=== PATIENT | male | born 1975 | race Caucasian/White ===

== ENCOUNTER 2017-03-01 18:52 | Inpatient (IN) | payer OTHER ==
[~2017-03-01] VITALS: Ht 182.9 cm; Wt 74.1 kg
[~2017-03-01 18:52] MED LIST: AMIT10TA6 PO; CERTKIT SC; MULT-506 PO
[2017-03-01] MEDS ORDERED: MoRPHine SULFATE 4 MG/ML 1 ML CARP\\VIAL IV STA (19:09)
[2017-03-01] MEDS ORDERED: SODIUM CHLORIDE 0.9% 1000ML 1,000 ML IV STA (19:09)
[2017-03-01] MEDS ORDERED: ONDANSETRON INJ 2 MG/ML 2 ML VIAL IV STA (19:09)
[2017-03-01] MEDS ORDERED: USTE90IN INJ (19:21)
[2017-03-01 19:58] LABS: BASO % 0.2 %; BASO ABS # 0.03 K/uL (0-0.2); COMPLETE YES; EOS % 1.1 %; HEMATOCRIT 43.4 % (42-52); IG% 0.2 %; LYMPH ABS # 1.39 K/uL (1.2-3.4); MEAN CELL VOLUME 84.8 fL (80-100); MEAN CORPUSCULAR HEMOGLOBIN 28.1 pg (25-34); MEAN CORPUSCULAR HGB CONC 33.2 g/dl (32-36); MEAN PLATELET VOLUME 8.8 fL (7.4-10.4); MONO % 6.3 %; NEUT % 81.2 %; PLATELET COUNT 413 K/uL (130-400); RED BLOOD COUNT 5.12 M/uL (4.7-6.1); WHITE BLOOD COUNT 12.63 K/uL (4.8-10.8)
[2017-03-01 20:09] LABS: BUN/CREATININE RATIO 14.2 (10-20); CALCIUM 9.6 mg/dl (8.5-10.1); CREATININE 0.88 mg/dl (0.60-1.40); POTASSIUM 4.1 mmol/L (3.5-5.1)
--- NOTE | 2017-03-01 20:36 | DIAGNOSTIC IMAGING REPORT ---
CHEST AND ABDOMEN 2 VIEWS HISTORY: Generalized abdominal pain. COMPARISON: Chest 05/03/2015. Abdomen and pelvis CT 05/03/2015. FINDINGS: The lungs are clear. The cardiomediastinal silhouette is within normal limits. There is no pneumoperitoneum or pneumatosis. No renal calculi. Suture material in the right side of the abdomen. Gas and stool throughout the colon. Mildly distended gas-filled distal ileum measuring 3.1 cm. However, this does not demonstrate a transition point and terminates in the cecum. Therefore this is consistent with an ileus. Moderate stool within the colon. IMPRESSION: 1. A single mildly dilated loop of gas-filled distal ileum suggestive of an ileus. No evidence for bowel obstruction. 2. Moderate stool within the colon. 3. No acute process within the chest. Electronically signed by: Rajesh Kamara M.D. 03/01/2017 8:33 PM Dictated Date/Time: 03/01/2017 8:30 PM
[2017-03-01] MEDS ORDERED: OPTIRAY 320 IV PRN (22:30)
[2017-03-01 23:24] VITALS: O2SAT 97
[2017-03-01 23:40] LABS: MANUAL MICROSCOPIC REQUIRED? NO; URINE APPEARANCE CLEAR (CLEAR); URINE BILIRUBIN NEG (NEG); URINE COLOR YELLOW; URINE NITRITE NEG (NEG); URINE SPECIFIC GRAVITY 1.015 (1.000-1.030); UROBILINOGEN NEG (NEG)
[2017-03-01 23:41] LABS: REVIEW REQ? NO
[2017-03-02 00:21] LABS: MAGNESIUM 2.2 mg/dl (1.8-2.4)
[2017-03-02] MEDS ORDERED: AMITRIPTYLINE HCL 10 MG TAB PO PRN (00:30)
[2017-03-02] MEDS ORDERED: TRAMADOL HCL 50 MG TAB PO PRN (00:30)
[2017-03-02] MEDS ORDERED: KETOROLAC TROMETHAMINE 30 MG/ML VIAL IV PRN (00:30)
[2017-03-02] MEDS ORDERED: MoRPHine SULFATE 4 MG/ML 1 ML CARP\\VIAL IV PRN (00:30)
[2017-03-02] MEDS ORDERED: PROMETHAZINE HCL INJ 12.5 MG in SODIUM CHLORIDE 0.9% 50ML 50 ML IV PRN (00:30)
[2017-03-02] MEDS ORDERED: ACETAMINOPHEN 325 MG TAB PO PRN (00:30)
[2017-03-02] MEDS ORDERED: LORAZEPAM 2 MG/ML 1 ML VIAL IV PRN (00:30)
[2017-03-02] MEDS ORDERED: ENOXAPARIN 40 MG/0.4 ML SYR SQ SCH (00:30)
[2017-03-02] MEDS ORDERED: ONDANSETRON INJ 2 MG/ML 2 ML VIAL IV PRN (00:30)
[2017-03-02] MEDS ORDERED: METHYLPREDNISOLONE IV 20 MG in SYRINGE 0 ML IV STA (00:34)
[2017-03-02] MEDS ORDERED: DOCUSATE SODIUM 100 MG CAP PO STA (00:35)
--- NOTE | 2017-03-02 00:57 | EMERGENCY ROOM VISIT NOTE ---
History Report prepared by Hannah: Stacey Pickard Under the Supervision of: Dr. Helio Longoria M.D. First contact with patient: 19:02 Chief Complaint: ABDOMINAL PAIN Stated Complaint: STOMACH PAINS History of Present Illness The patient is a 41 year old male who presents to the Emergency Room with complaints of worsening bilateral lower abdominal pain for the past 7 hours. He was feeling fine yesterday and this morning. Around noon he developed lower abdominal pain. He describes a feeling of pressure and states that it feels like he has a blockage. The patient denies any history of bowel obstructions. He does have a history of Crohn's Disease. He typically has frequent bowel movements due to his Crohn's, but states that he only had one bowel movement today and it was early this morning. He also reports nausea and 4 episodes of vomiting. The patient rates his pain as a 9/10 in severity. He is not passing any gas. The patient denies fevers and urinary symptoms. He just recently started taking Stelara for his Crohn's. He has a history of a bowel resection. Source of History: patient Onset: 7 hours ago Position: abdomen Symptom Intensity: 9/10 Quality: pressure Timing: worsening Associated Symptoms: + nausea, + vomiting, No fevers, No urinary symptoms Review of Systems See HPI for pertinent positives & negatives. A total of 10 systems reviewed and were otherwise negative. Past Medical & Surgical Medical Problems: (1) Crohns disease (2) Ileitis (3) Stomach problems (4) Ulcer Surgical Problems: (1) History of appendectomy (2) History of bowel resection Family History No pertinent family history Social History Smoking Status: Never Smoker Alcohol Use: none Drug Use: none Marital Status: Housing Status: lives with family Occupation Status: employed Current/Historical Medications Scheduled Multivitamin (Multivitamin), 1 TAB PO QAM Ustekinumab (Stelara), 90 MG INJ Q8WKS Scheduled PRN Amitriptyline Hcl (Elavil), 1-2 TABS PO HS PRN for Sleep Allergies Coded Allergies: No Known Allergies (Unverified , 03/01/17) Physical Exam Vital Signs Date Time Temp Pulse Resp B/P Pulse Ox O2 Delivery O2 Flow Rate FiO2 03/01/17 23:24 90 16 114/78 97 Room Air 03/01/17 22:31 89 03/01/17 22:30 86 18 03/01/17 21:30 90 18 03/01/17 20:59 116/72 03/01/17 20:30 84 19 03/01/17 19:43 79 18 119/81 99 Room Air 03/01/17 19:43 75 03/01/17 18:58 36.7 91 18 130/92 99 Room Air Physical Exam Constitutional: Vital signs reviewed. Eyes: Pupils are equal round reactive to light. Conjunctiva are noninjected. ENT: Pharynx is clear without erythema or exudate. Mucous membranes are moist. Neck supple without meningeal signs. Respiratory: Clear to auscultation bilaterally. Breath sounds are equal bilaterally. Cardiovascular: Regular rate and rhythm. No rubs or gallops. GI: Soft, nondistended. Lower abdominal tenderness with voluntary guarding. Bowel sounds are present. Musculoskeletal: No peripheral edema. No lower extremity tenderness. Integumentary: No cyanosis. Neurological: The patient is awake and alert. No focal deficits. Psychiatric: Normal affect. Medical Decision & Procedures ER Provider Diagnostic Interpretation: Radiology results as stated below per my review and the radiologist's interpretation: CHEST AND ABDOMEN 2 VIEWS HISTORY: Generalized abdominal pain. COMPARISON: Chest 05/03/2015. Abdomen and pelvis CT 05/03/2015. FINDINGS: The lungs are clear. The cardiomediastinal silhouette is within normal limits. There is no pneumoperitoneum or pneumatosis. No renal calculi. Suture material in the right side of the abdomen. Gas and stool throughout the colon. Mildly distended gas-filled distal ileum measuring 3.1 cm. However, this does not demonstrate a transition point and terminates in the cecum. Therefore this is consistent with an ileus. Moderate stool within the colon. IMPRESSION: 1. A single mildly dilated loop of gas-filled distal ileum suggestive of an ileus. No evidence for bowel obstruction. 2. Moderate stool within the colon. 3. No acute process within the chest. Electronically signed by: Rajesh Kamara M.D. 03/01/2017 8:33 PM Dictated Date/Time: 03/01/2017 8:[address] ABDOMEN & PELVIS: Comparison: CT abdomen pelvis 05/01/15, abdominal radiograph 03/01/17 Previous right lower quadrant bowel surgical changes with enterocolonic anastomosis. Just proximal to the anastomosis there is a short segment thickening of distal ileum wall spanning an approximate 5 cm segment. This can represent short segment ileitis on an inflammatory or infectious etiology. There is narrowing of the lumen of the short segment of distal ileal which is demonstrating wall thickening with some mild prominence of the proximal bowel caliber which is partially fluid and air-filled caliber measuring up to 3 cm. This can represent a low-grade partial bowel obstruction. The administered oral contrast opacifies the small bowel to the mid jejunal level. Small amount of free fluid in the pelvis. No free air or abscess. Lung bases are clear of infiltrate. Minimal dependent bilateral basilar atelectasis noted. Solid organs of the abdomen along with the gallbladder are unremarkable No urinary tract stones or hydronephrosis or perinephric inflammatory changes. Remaining opacified and unopacified bowel are unremarkable. L5/S1 central disc osteophyte complex of approximately 5 mm AP dimension with mild central canal narrowing. Right foramen is mildly narrowed. Left foramen is relatively patent. This is stable since prior exam. No acute osseous abnormality. Radiologist: Sal Keller MD Laboratory Results 03/01/17 19:30 Red Blood Count 5.12, Mean Corpuscular Volume 84.8, Mean Corpuscular Hemoglobin 28.1, Mean Corpuscular Hemoglobin Concent 33.2, Mean Platelet Volume 8.8, Neutrophils (%) (Auto) 81.2, Lymphocytes (%) (Auto) 11.0, Monocytes (%) (Auto) 6.3, Eosinophils (%) (Auto) 1.1, Basophils (%) (Auto) 0.2, Neutrophils # (Auto) 10.26, Lymphocytes # (Auto) 1.39, Monocytes # (Auto) 0.79, Eosinophils # (Auto) 0.14, Basophils # (Auto) 0.03 03/01/17 19:30 Test 03/01/17 19:30 03/01/17 23:15 White Blood Count 12.63 K/uL (4.8-10.8) Red Blood Count 5.12 M/uL (4.7-6.1) Hemoglobin 14.4 g/dL (14.0-18.0) Hematocrit 43.4 % (42-52) Mean Corpuscular Volume 84.8 fL (80-100) Mean Corpuscular Hemoglobin 28.1 pg (25-34) Mean Corpuscular Hemoglobin Concent 33.2 g/dl (32-36) Platelet Count 413 K/uL (130-400) Mean Platelet Volume 8.8 fL (7.4-10.4) Neutrophils (%) (Auto) 81.2 % Lymphocytes (%) (Auto) 11.0 % Monocytes (%) (Auto) 6.3 % Eosinophils (%) (Auto) 1.1 % Basophils (%) (Auto) 0.2 % Neutrophils # (Auto) 10.26 K/uL (1.4-6.5) Lymphocytes # (Auto) 1.39 K/uL (1.2-3.4) Monocytes # (Auto) 0.79 K/uL (0.11-0.59) Eosinophils # (Auto) 0.14 K/uL (0-0.5) Basophils # (Auto) 0.03 K/uL (0-0.2) RDW Standard Deviation 45.7 fL (36.4-46.3) RDW Coefficient of Variation 14.7 % (11.5-14.5) Immature Granulocyte % (Auto) 0.2 % Immature Granulocyte # (Auto) 0.02 K/uL (0.00-0.02) Anion Gap 6.0 mmol/L (3-11) Est Creatinine Clear Calc Drug Dose 118.1 ml/min Estimated GFR () 125.4 Estimated GFR (Non- 108.2 BUN/Creatinine Ratio 14.2 (10-20) Calcium Level 9.6 mg/dl (8.5-10.1) Magnesium Level 2.2 mg/dl (1.8-2.4) Total Bilirubin 0.6 mg/dl (0.2-1) Direct Bilirubin 0.1 mg/dl (0-0.2) Aspartate Amino Transf (AST/SGOT) 12 U/L (15-37) Alanine Aminotransferase (ALT/SGPT) 25 U/L (12-78) Alkaline Phosphatase 86 U/L (45-117) Total Protein 7.7 gm/dl (6.4-8.2) Albumin 3.7 gm/dl (3.4-5.0) Lipase 172 U/L (73-393) Urine Color YELLOW Urine Appearance CLEAR (CLEAR) Urine pH 7.0 (4.5-7.5) Urine Specific [place] 1.015 (1.000-1.030) Urine Protein NEG (NEG) Urine Glucose (UA) NEG (NEG) Urine Ketones NEG (NEG) Urine Occult Blood NEG (NEG) Urine Nitrite NEG (NEG) Urine Bilirubin NEG (NEG) Urine Urobilinogen NEG (NEG) Urine Leukocyte Esterase NEG (NEG) Laboratory results as reviewed by me. Medications Administered Medications (Trade) Dose Ordered Sig/Reinaldo Route Start Time Stop Time Status Last Admin Dose Admin Morphine Sulfate (MoRPHine SULFATE INJ) 4 mg ONE STAT IV 03/01/17 19:09 03/01/17 19:11 DC 03/01/17 19:40 4 MG Ondansetron HCl 4 mg 4 mg NOW STAT IV 03/01/17 19:09 03/01/17 19:11 DC 03/01/17 19:40 4 MG Sodium Chloride (Nss 1000ml) 1,000 ml @ 999 mls/hr Q1H1M STAT IV 03/01/17 19:09 03/01/17 20:09 DC 03/01/17 19:40 999 MLS/HR ED Course 1901: The patient was evaluated in room A10. A complete history and physical exam was performed. 9: NSS 1000 ml @ 999 mls/hr IV, Zofran 4 mg IV, Morphine sulfate 4 mg IV 2339: I reassessed the patient at this time. He is feeling better and resting comfortably. I discussed the results and treatment plan with the patient. I answered all pertaining questions that he had. He expressed understanding and verbalized agreement. 2346: I spoke with Dr. Pal. We discussed the patient's results and treatment plan. The patient will be evaluated by the [facility] for further management. Medical Decision This is a 41-year-old male with Crohn's disease presenting with vomiting and abdominal pain. Differential diagnosis includes Crohn's exacerbation, abscess, fistula, bowel obstruction, diverticulitis, ileitis. I did perform a limited focused review of portions of the patient's old chart on the electronic medical record. The patient had a CT scan in 2014 which showed diverticulosis. I did evaluate the patient as noted above. IV access was established. I did treat the patient with IV morphine and Zofran. He was given normal saline IV. I did order and personally review the patient's abdominal and chest x-rays as described above. There is no evidence of obstruction. I did order and review the patient's blood work as noted in the electronic medical record. His white blood cell count is elevated. I did order a CT of the abdomen and pelvis. I did review the images myself as well as the radiology report as described above. He does appear to have an ileitis as well as a low-grade partial small bowel obstruction. I did reassess the patient. He is feeling better. I did discuss the test results with him and recommended hospitalization. I did discuss case with the hospitalist and case preparer and liner. Consults Time Called: [phone] Consulting Physician: Dr. Pal Returned Call: [phone] Pal. We discussed the patient's results and treatment plan. The patient will be evaluated by the [facility] for further management. Impression Primary Impression: Exacerbation of Crohn's disease Additional Impression: Partial small bowel obstruction Scribe Attestation The scribe's documentation has been prepared under my direct and personally reviewed by me in its entirety. I confirm that the note above accurately reflects all work, treatment, procedures, and medical decision making performed by me. Departure Information Dispostion Being Evaluated By Hospitalist Referrals Anoop De La Fuente M.D. (PCP) Patient Instructions My [facility] Problem Qualifiers Primary Impression: Exacerbation of Crohn's disease Digestive disease complication type: without complication Qualified Codes: K50.90 - Crohn's disease, unspecified, without complications
[2017-03-02 01:05] VITALS: BP 105/70; PULSE 77; TEMP 36.7; O2SAT 96; Ht 182.9 cm; Wt 74.1 kg
[2017-03-02] MEDS ORDERED: LORAZEPAM INJ 0.5 MG in SYRINGE 0.75 ML IV PRN (01:30)
[2017-03-02] MEDS: SODIUM CHLORIDE 0.45% 1000ML 1,000 ML IV SCH ×2 (01:34→13:41)
--- NOTE | 2017-03-02 03:05 | HISTORY & PHYSICAL EXAMINATION ---
DATE OF ADMISSION: 03/01/2017 PRIMARY CARE PHYSICIAN: Dr. De La Fuente. HISTORY OF PRESENT ILLNESS: Medical history is significant for Crohn disease status post surgery, past tobacco abuse. Patient diagnosed with Crohn disease since he was 19 years old. Underwent a colonic resection at [place] in 1996. In 2011, he was started on Humira. Subsequently stopped because of some diarrhea, constitutional sx. Patient switched to Cimzia. In October 2016, colonoscopy showed inflammation at the anal canal, distal rectum and at the ileocolic anastomosis and neoterminal ileum 2 to Crohn's. Two months ago, patient received his first dose of Stelera. Today, the patient noted achy sharp central abdominal discomfort more on left with nausea, 2 emesis episodes, decreased frequency of bowel movement to just once today from usual multiple episodes. No gross bleeding noted. No chest pain, no shortness of breath, no fever, no chills. MEDICAL HISTORY: As above. SURGERIES: Bowel surgery, appendectomy. HOME MEDICATIONS: Includes amitriptyline p.r.n., multivitamins, Stelara every 8 weeks. ALLERGIES: No known drug allergies. FAMILY HISTORY: Hypertension. 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 PHYSICAL EXAMINATION: VITAL SIGNS: Blood pressure noted to be 114/70, pulse rate 90, RR 16, temperature 36.7, sats 98 on room air. GENERAL: Noted to be comfortable, no respiratory distress. SKIN: Normal color. HEENT: [place] palpebral conjunctivae. Dry mucosa. NECK: No JVD. Supple. CHEST: Clear to auscultation. HEART: Regular rate and rhythm. ABDOMEN: Some distention. Healed hypogastric scar. Central abdominal tenderness. EXTREMITIES: No edema, no tenderness. NEUROLOGIC: No gross focality. LABS: Hemoglobin 14, hematocrit 40, white cells 12, platelets 413. Sodium 130, potassium 4.1, LFTS, lipase N CT abdomen and pelvis initial read ileitis, colonic anastomosis, poss partial low grade SBO. ASSESSMENT: 1. Abdominal pain IBD flare up history of surgery possible partial bowel obstruction 2. past tobacco abuse. PLAN: GMF analgesia, bowel rest, IV fluids steroid trial. Follow official CT results. Further management as per GI RE IBD flare up. DVT prophylaxis. Lovenoxn SQ Full code. MTDD
--- NOTE | 2017-03-02 07:33 | DIAGNOSTIC IMAGING REPORT ---
CT SCAN OF THE ABDOMEN AND PELVIS WITH IV CONTRAST CLINICAL HISTORY: Left lower quadrant abdominal pain. COMPARISON STUDY: Abdominal CT dated 05/03/2015. Abdominal radiograph dated 03/01/2017. TECHNIQUE: Following the IV administration of 115 cc of Optiray 320, CT scan of the abdomen and pelvis is performed from the lung bases to the proximal femora. Images are reviewed in the axial, sagittal, and coronal planes. IV contrast was administered without complication. Automated dose control exposure was utilized. CT DOSE: 296.73 mGy.cm FINDINGS: Lung bases: The heart is normal in size and without pericardial effusion. The lung bases are clear noting dependent atelectasis. A tiny hiatal hernia is identified. Wall thickening is suggested in the distal esophagus. Liver: The contrast-enhanced liver is normal in size, contour, and attenuation. There is no intrahepatic biliary ductal dilatation. The hepatic veins and portal veins are patent. Gallbladder: A tiny gallbladder polyp is suggested in the fundal region. This measures 5 mm as seen on image #146 and is unchanged from the 2015 examination. The gallbladder is otherwise normal in appearance. Spleen: Normal in size and attenuation. Pancreas: Unremarkable. Adrenal glands: Unremarkable. Kidneys: The contrast enhanced kidneys are normal in size and without hydronephrosis. The kidneys enhance symmetrically. Abdominal vasculature: The abdominal aorta is normal in course and caliber. Bowel: There are postoperative changes from ileocecectomy with ileocolic anastomosis. No bowel obstruction is identified. There is approximate 6 cm segment of thick-walled and hyperemic distal ileum located just proximal to the anastomosis, best seen on axial image #226. Liquid stool is noted throughout the colon. Additional abnormal loop of small bowel is identified in the mid pelvis on image #303. This loop measures at least 7 cm in length. Inflammatory stranding and productive change is seen in the surrounding fat. There are more normal-appearing intervening small bowel loops. There is no evidence of fistula. No pneumatosis intestinalis or portal venous gas is seen. Scattered air-fluid levels are noted throughout the fluid-filled small bowel loops, possibly represent a mild ileus. The appendix is surgically absent. Peritoneum: There is a small volume of free fluid in the pelvis. No intraperitoneal free air is seen. No fluid collection is seen to suggest abscess. There is a fat-containing umbilical hernia. Lymphadenopathy: There are numerous mildly enlarged mesenteric lymph nodes which measure up to 11 mm short axis. Pelvic viscera: The bladder, prostate, and seminal vesicles are normal as imaged. Skeletal structures: No lytic or blastic lesions are seen. Posterior disc also seen at L5-S1. Numerous tiny bone islands are incidentally noted in the pelvis. IMPRESSION: 1. There are postoperative changes from ileocecectomy with ileocolic anastomosis. There is no evidence of high-grade bowel obstruction. 2. There are 2 discontinuous loops of hyperemic and thick-walled small bowel with surrounding inflammatory change. 1 is located just proximal to the ileocolic anastomosis, and the other is located in the mid pelvis. The appearance is consistent with an enteritis, likely representing inflammatory bowel disease/Crohn's. Clinical correlation will be required. 3. There are scattered air-fluid levels seen throughout the small bowel and fluid fills the colon. This likely represents ileus. No transition point is identified. Low-grade/partial bowel obstruction is considered less likely but not excluded. 4. There is no evidence of abscess or fistula formation. There is a small volume of free fluid in the pelvis. 5. Numerous mildly enlarged mesenteric lymph nodes are likely on a reactive basis. Electronically signed by: Elfego Urrutia M.D. 03/02/2017 7:31 AM Dictated Date/Time: 03/02/2017 7:21 AM
[2017-03-02 07:54] VITALS: BP 95/65; PULSE 63; TEMP 36.5; O2SAT 97
[2017-03-02 08:20] LABS: HEMATOCRIT 39.9 % (42-52); MEAN CELL VOLUME 85.4 fL (80-100); MEAN CORPUSCULAR HEMOGLOBIN 27.6 pg (25-34); MEAN CORPUSCULAR HGB CONC 32.3 g/dl (32-36); MEAN PLATELET VOLUME 8.8 fL (7.4-10.4); PLATELET COUNT 373 K/uL (130-400); RED BLOOD COUNT 4.67 M/uL (4.7-6.1); WHITE BLOOD COUNT 9.26 K/uL (4.8-10.8)
[2017-03-02 08:32] LABS: PROTHROMBIN TIME (PATIENT) 10.7 SECONDS (9.0-12.0)
[2017-03-02 08:54] LABS: BASO % 0.1 %; BASO ABS # 0.01 K/uL (0-0.2); BUN/CREATININE RATIO 13.3 (10-20); COMPLETE YES; CREATININE 0.76 mg/dl (0.60-1.40); EOS % 0.1 %; IG% 0.2 %; LYMPH % 7.2 %; LYMPH ABS # 0.67 K/uL (1.2-3.4); MONO % 1.8 %; NEUT % 90.6 %; POTASSIUM 4.4 mmol/L (3.5-5.1)
[2017-03-02] MEDS ORDERED: ENOXAPARIN 30 MG/0.3 ML SYR SQ SCH (09:00)
[2017-03-02] MEDS: METHYLPREDNISOLONE IV 20 MG in SYRINGE 0 ML IV SCH ×2 (09:15→16:54)
[2017-03-02] MEDS: MULTIVITAMIN TAB PO SCH (09:18)
[2017-03-02] MEDS: DOCUSATE SODIUM 100 MG CAP PO SCH (09:18)
[2017-03-02] MEDS ORDERED: TUBERCULIN SKIN TEST 5 TU in SYRINGE 0 ML ID ONE (11:15)
--- NOTE | 2017-03-02 12:48 | DIAGNOSTIC IMAGING REPORT ---
KUB CLINICAL HISTORY: re-eval ileus vs partial SBO COMPARISON STUDY: 03/01/2017 FINDINGS: There is contrast within nondilated colon. There are mildly dilated small bowel loops. The findings are suggestive of a low-grade partial small bowel obstruction IMPRESSION: Contrast within nondilated colon. Mildly dilated small bowel loops. Electronically signed by: Gerald Person M.D. 03/02/2017 12:45 PM Dictated Date/Time: 03/02/2017 12:43 PM
--- NOTE | 2017-03-02 13:06 | Gastrointestinal Consultation ---
Gastrointestinal Consultation Date of Consultation: Mar 02, 2017 Attending Physician: Ileana Keating Consulting Physician: Silviano Melendez Reason for Consultation: Ileitis History of Present Illness Patient is a 41 year old male who presented yesterday to ED w c/o mid lower abd pain. He has hx of Crohn's disease diagnosed at age 19, hx of fistulizing disease, had ileocolonic resection in 1996. Previously been on Imuran, Sulfasalazine, Pentasa, Humira, Cimzia and most recently in December started Stelera and is due for another injection this week. Pt developed abd pain yesterday, had nausea, but no vomiting. Denies any fever, chills but close to a year now had night sweats. Denies any coughing, wheezing. Upon evaluation found to have leukocytosis w WBC of 12.6K, H/H 12/39, LFTs and Lipase normal. CT abd/ pelvis w evidence of enteritis, ileus, no transition point, low grade or PSBO possible. No abscess or fistula. He had been made NPO, started on IVF, Methylprednisolon 20mg q8hrs. Pt reports he's passing flatus but no BMs yet. Abd pain much improved, no nausea now. Want to try some liquids to drink. Past Medical/Surgical History Medical Problems: (1) Exacerbation of Crohn's disease Status: Acute (2) Partial small bowel obstruction Status: Acute Past Medical History: See above Past Surgical History: See above, and appendectomy Family History No pertinent family history Not related to admission Social History Smoking Status: Former Smoker Alcohol Use: none Drug Use: none Marital Status: Housing Status: lives with family Occupation Status: employed Allergies Coded Allergies: No Known Allergies (Unverified , 03/01/17) Current Medications Home Meds and Scripts Medications Dose Route/Sig Max Daily Dose Days Date Category Stelara (Ustekinumab) 90 Mg/Ml Inj 90 Mg INJ Q8WKS 03/01/17 Reported Multivitamin (Multivitamins) Tab 1 Tab PO QAM 10/26/16 Reported Elavil (Amitriptyline Hcl) 10 Mg Tab 1-2 Tabs PO HS PRN 10/26/16 Reported Review of Systems Constitutional: + sweats, No chills, No fever Respiratory: No cough, No shortness of breath Cardiac: No chest pain Abdomen: + constipation, + nausea, + pain, + see HPI, No vomiting Physical Exam Date Time Temp Pulse Resp B/P Pulse Ox O2 Delivery O2 Flow Rate FiO2 03/02/17 07:54 36.5 63 16 95/65 97 Room Air 03/02/17 07:30 Room Air 03/02/17 01:08 88 16 103/82 96 03/02/17 01:05 36.7 77 14 105/70 96 Room Air 03/02/17 01:05 36.7 77 16 105/70 Room Air 03/02/17 01:05 Room Air 03/01/17 23:24 90 16 114/78 97 Room Air 03/01/17 22:31 89 03/01/17 22:30 86 18 03/01/17 21:30 90 18 03/01/17 20:59 116/72 03/01/17 20:30 84 19 03/01/17 19:43 79 18 119/81 99 Room Air 03/01/17 19:43 75 03/01/17 18:58 36.7 91 18 130/92 99 Room Air General Appearance: WD/WN, no apparent distress Eyes: normal inspection, PERRL, EOMI Neck: supple, no JVD, trachea midline Respiratory/Chest: normal breath sounds, no respiratory distress, no accessory muscle use Cardiovascular: regular rate, rhythm, no gallop, no murmur Abdomen: soft, + abnormal bowel sounds, + tenderness (periumbilical to mid lower abd) Extremities: normal inspection, no pedal edema, no calf tenderness Neurologic/Psych: alert, normal mood/affect, oriented x 3 Skin: normal color, no jaundice, no rash Laboratory Results Last 24 Hours Test 03/01/17 19:30 03/01/17 23:15 03/02/17 07:59 White Blood Count 12.63 K/uL 9.26 K/uL Red Blood Count 5.12 M/uL 4.67 M/uL Hemoglobin 14.4 g/dL 12.9 g/dL Hematocrit 43.4 % 39.9 % Mean Corpuscular Volume 84.8 fL 85.4 fL Mean Corpuscular Hemoglobin 28.1 pg 27.6 pg Mean Corpuscular Hemoglobin Concent 33.2 g/dl 32.3 g/dl Platelet Count 413 K/uL 373 K/uL Mean Platelet Volume 8.8 fL 8.8 fL Neutrophils (%) (Auto) 81.2 % 90.6 % Lymphocytes (%) (Auto) 11.0 % 7.2 % Monocytes (%) (Auto) 6.3 % 1.8 % Eosinophils (%) (Auto) 1.1 % 0.1 % Basophils (%) (Auto) 0.2 % 0.1 % Neutrophils # (Auto) 10.26 K/uL 8.38 K/uL Lymphocytes # (Auto) 1.39 K/uL 0.67 K/uL Monocytes # (Auto) 0.79 K/uL 0.17 K/uL Eosinophils # (Auto) 0.14 K/uL 0.01 K/uL Basophils # (Auto) 0.03 K/uL 0.01 K/uL RDW Standard Deviation 45.7 fL 45.9 fL RDW Coefficient of Variation 14.7 % 14.7 % Immature Granulocyte % (Auto) 0.2 % 0.2 % Immature Granulocyte # (Auto) 0.02 K/uL 0.02 K/uL Sodium Level 143 mmol/L 141 mmol/L Potassium Level 4.1 mmol/L 4.4 mmol/L Chloride Level 104 mmol/L 105 mmol/L Carbon Dioxide Level 33 mmol/L 31 mmol/L Anion Gap 6.0 mmol/L 5.0 mmol/L Blood Urea Nitrogen 13 mg/dl 10 mg/dl Creatinine 0.88 mg/dl 0.76 mg/dl Est Creatinine Clear Calc Drug Dose 118.1 ml/min 136.8 ml/min Estimated GFR () 125.4 133.2 Estimated GFR (Non- 108.2 114.9 BUN/Creatinine Ratio 14.2 13.3 Random Glucose 106 mg/dl 114 mg/dl Calcium Level 9.6 mg/dl 9.0 mg/dl Magnesium Level 2.2 mg/dl Total Bilirubin 0.6 mg/dl Direct Bilirubin 0.1 mg/dl Aspartate Amino Transf (AST/SGOT) 12 U/L Alanine Aminotransferase (ALT/SGPT) 25 U/L Alkaline Phosphatase 86 U/L Total Protein 7.7 gm/dl Albumin 3.7 gm/dl Lipase 172 U/L Urine Color YELLOW Urine Appearance CLEAR Urine pH 7.0 Urine Specific [place] 1.015 Urine Protein NEG Urine Glucose (UA) NEG Urine Ketones NEG Urine Occult Blood NEG Urine Nitrite NEG Urine Bilirubin NEG Urine Urobilinogen NEG Urine Leukocyte Esterase NEG Red Blood Cell Morphology Unremarkable Prothrombin Time 10.7 SECONDS Prothromb Time International Ratio 1.0 Impression Patient is a 41 year old male w hx of Crohn's disease s/p ileocolonic resection in 1996, admitted w abd pain, nausea. CT evidence of low grade partial small bowel obstruction vs ileus, enteritis. Plan - KUB daily till ileus vs PSBO resolved - Mehtylprednisolone 20mg IV q8hr - Defer antibx use for now - Check stool cx, Cdiff - Check TB skin test given night sweats, last done 04/2016 negative. Hold Stelara until infectious processes ruled out - Will start CL diet as he's passing flatus, nausea resolved and abd pain is improved. I have personally seen and examined the patient with ZEESHAN Bhatt and . Her note reflects my exam and findings. I agree with her impression and plan. Restart Stelara as soon as possible. Silviano Melendez M.D.
[2017-03-02 15:05] VITALS: BP 108/68; PULSE 69; TEMP 36.6; O2SAT 95
[2017-03-02] MEDS: ENOXAPARIN 40 MG/0.4 ML SYR SQ SCH (21:02)
[2017-03-02 23:02] VITALS: BP 94/59; PULSE 81; TEMP 36.4; O2SAT 96
[2017-03-03] MEDS: METHYLPREDNISOLONE IV 20 MG in SYRINGE 0 ML IV SCH ×4 (00:05→23:22)
[2017-03-03] MEDS ORDERED: NURSING VERBAL MED ORDER ONE (01:45)
[2017-03-03 07:58] LABS: BUN/CREATININE RATIO 10.6 (10-20); CREATININE 0.79 mg/dl (0.60-1.40); MAGNESIUM 2.5 mg/dl (1.8-2.4); POTASSIUM 4.5 mmol/L (3.5-5.1)
[2017-03-03 08:18] VITALS: BP 111/74; PULSE 68; TEMP 36.4; O2SAT 100
[2017-03-03] MEDS: MULTIVITAMIN TAB PO SCH (08:41)
[2017-03-03] MEDS: DOCUSATE SODIUM 100 MG CAP PO SCH (08:42)
--- NOTE | 2017-03-03 09:51 | Progress Note ---
Internal Med Progress Note Date of Service: Mar 02, 2017. Provider Documentation: SUBJECTIVE: The patient was seen and examined Still has RLQ pain -much diminished and resolved now No Nausea and or vomiting,no abdominal distention Bowel moved OBJECTIVE: Vital Signs-as noted below Exam: General-No distress at rest Eyes-normal ENT-normal Neck-supple Lungs-Clear to auscultate bilaterally Heart-Regular,no murmur Abdomen-Soft.nontender RLQ ,no guarding and or rigidity ,no masses,bowel sound present Extremities-No edema Neuro-AAox3 Lab data as noted below. ASSESSMENT & PLAN: Crohn's Flare Presented with Abdominal pain,nausea and Vomiting Has H/O IBD f Possible partial bowel obstruction on CT:: 1. There are postoperative changes from ileocecectomy with ileocolic anastomosis. There is no evidence of high-grade bowel obstruction. 2. There are 2 discontinuous loops of hyperemic and thick-walled small bowel with surrounding inflammatory change. 1 is located just proximal to the ileocolic anastomosis, and the other is located in the mid pelvis. The appearance is consistent with an enteritis, likely representing inflammatory bowel disease/Crohn's. Clinical correlation will be required. Was on NPO ,IV Solumedrol,analgesia, bowel rest, IV fluids Appreciate GI evaluation CONNOR-minimal small bowel loop dilatation Tolerating Clears-likely to advance as tolerated :await GI recommendation Likely discharge in a day or two Past tobacco abuse. DVT prophylaxis. Lovenox SQ Full code. DISPOSITION In crease ambulation Likely discharge in a day or two Vital Signs: Date Time Temp Pulse Resp B/P Pulse Ox O2 Delivery O2 Flow Rate FiO2 03/03/17 08:18 36.4 68 16 111/74 100 Room Air 03/03/17 07:15 Room Air 03/03/17 00:05 Room Air 03/02/17 23:02 36.4 81 16 94/59 96 Room Air 03/02/17 15:05 36.6 69 18 108/68 95 Room Air Lab Results: Results Past 24 Hours Test 03/03/17 07:24 Range/Units Sodium Level 144 136-145 mmol/L Potassium Level 4.5 3.5-5.1 mmol/L Chloride Level 107 98-107 mmol/L Carbon Dioxide Level 33 21-32 mmol/L Anion Gap 4.0 3-11 mmol/L Blood Urea Nitrogen 8 7-18 mg/dl Creatinine 0.79 0.60-1.40 mg/dl Est Creatinine Clear Calc Drug Dose 131.6 ml/min Estimated GFR () 131.1 Estimated GFR (Non- 113.1 BUN/Creatinine Ratio 10.6 10-20 Random Glucose 116 70-99 mg/dl Calcium Level 9.0 8.5-10.1 mg/dl Magnesium Level 2.5 1.8-2.4 mg/dl Total Bilirubin 0.7 0.2-1 mg/dl Direct Bilirubin 0.2 0-0.2 mg/dl Aspartate Amino Transf (AST/SGOT) 7 15-37 U/L Alanine Aminotransferase (ALT/SGPT) 22 12-78 U/L Alkaline Phosphatase 74 45-117 U/L Total Protein 6.9 6.4-8.2 gm/dl Albumin 3.3 3.4-5.0 gm/dl Microbiology Results 03/02/17 Shiga Toxin Test, Received Pending 03/02/17 Stool Culture, Received Pending 03/02/17 C.difficile Toxin B Gene (PCR) - Final, Complete No C. difficile toxin B gene detected
--- NOTE | 2017-03-03 09:58 | DIAGNOSTIC IMAGING REPORT ---
KUB CLINICAL HISTORY: re-eval ileus COMPARISON STUDY: 03/02/2017 FINDINGS: There is contrast within nondilated colon. There is no current evidence of small bowel dilatation. IMPRESSION: No evidence of pathologic bowel dilatation. Electronically signed by: Gerald Person M.D. 03/03/2017 9:55 AM Dictated Date/Time: 03/03/2017 9:55 AM
--- NOTE | 2017-03-03 14:45 | Progress Note ---
Progress Note Date of Service Mar 03, 2017. Progress Note Pt with mild RLQ pain, improved from admission. VSS, afeb Cmofortable on exam. Mild RLQ abd tenderness A/P: Crohn's ileitis, failed mult meds now undergoing stelara induction, admit with pain - Plan IV steroids until tomorrow and diet as tolerated. Anticipate d/c tomorrow with outpt pred taper (40 x 7 d, 30 x 7 d, 20 x 7d, 15 x 7d, 10 x 7d, 5 x 7d)
[2017-03-03 15:55] VITALS: BP 115/69; PULSE 66; TEMP 36.5; O2SAT 98
[2017-03-03] MEDS: ENOXAPARIN 40 MG/0.4 ML SYR SQ SCH (21:10)
[2017-03-03 22:56] VITALS: BP 108/68; PULSE 57; TEMP 36.4; O2SAT 96
[2017-03-04 06:54] VITALS: BP 118/75; PULSE 58; TEMP 36.5; O2SAT 98
[2017-03-04] MEDS: DOCUSATE SODIUM 100 MG CAP PO SCH (08:58)
[2017-03-04] MEDS: MULTIVITAMIN TAB PO SCH (08:58)
--- NOTE | 2017-03-04 10:27 | Progress Note ---
Internal Med Progress Note Date of Service: Mar 04, 2017. Provider Documentation: SUBJECTIVE: The patient was seen and examined No more abdominal pain No Nausea and or vomiting,no abdominal distention Bowel moved Tolerating regular diet OBJECTIVE: Vital Signs-as noted below Exam: General-No distress at rest Eyes-normal ENT-normal Neck-supple Lungs-Clear to auscultate bilaterally Heart-Regular,no murmur Abdomen-Soft,nontender RLQ ,no guarding and or rigidity ,no masses,bowel sound present Extremities-No edema Neuro-AAox3 Lab data as noted below. ASSESSMENT & PLAN: Crohn's Flare Presented with Abdominal pain,nausea and Vomiting Has H/O IBD f Possible partial bowel obstruction on CT:: 1. There are postoperative changes from ileocecectomy with ileocolic anastomosis. There is no evidence of high-grade bowel obstruction. 2. There are 2 discontinuous loops of hyperemic and thick-walled small bowel with surrounding inflammatory change. 1 is located just proximal to the ileocolic anastomosis, and the other is located in the mid pelvis. The appearance is consistent with an enteritis, likely representing inflammatory bowel disease/Crohn's. Clinical correlation will be required. Was on NPO ,IV Solumedrol,analgesia, bowel rest, IV fluids Appreciate GI evaluation CONNOR-minimal small bowel loop dilatation Tolerating Clears-likely to advance as tolerated :await GI recommendation Tolerating advanced diet Asymptomatic today Discharge home om prednisone taper Past tobacco abuse. DVT prophylaxis. Lovenox SQ Full code. DISPOSITION In crease ambulation Discharge home today Vital Signs: Date Time Temp Pulse Resp B/P Pulse Ox O2 Delivery O2 Flow Rate FiO2 03/04/17 08:00 Room Air 03/04/17 06:54 36.5 58 19 118/75 98 Room Air 03/03/17 23:25 Room Air 03/03/17 22:56 36.4 57 16 108/68 96 Room Air 03/03/17 15:55 36.5 66 18 115/69 98 Room Air 03/03/17 15:45 Room Air
[2017-03-04] MEDS ORDERED: PRED10TA PO (10:33)
--- NOTE | 2017-03-04 10:39 | Discharge Instructions ---
Discharge Instructions Date of Service Mar 04, 2017. Admission Reason for Admission: Ileitis Discharge Discharge Diagnosis / Problem: Crohn's Flare Discharge Goals Goal(s): Prevent Disease Progression Activity Recommendations Activity Limitations: resume your previous activity . Instructions / Follow-Up Instructions / Follow-Up Dr De La Fuente on 03/18/17 at 11:05 AM.Keep appointment with GI Current Hospital Diet Patient's current hospital diet: Regular Diet Discharge Diet Recommended Diet: Regular Diet Pending Studies Studies pending at discharge: no Medical Emergencies . Who to Call and When: Medical Emergencies: If at any time you feel your situation is an emergency, please call 911 immediately. . Non-Emergent Contact Non-Emergency issues call your: Primary Care Provider . . "Provider Documentation" section prepared by Ileana Keating. . VTE Core Measure Inpt VTE Proph given/why not?: Enoxaparin (Lovenox)SQ
[2017-03-04 11:14] VITALS: BP 118/75; PULSE 58; TEMP 36.5; O2SAT 98
[2017-03-04] MEDS ORDERED: PPD CHECK SCH (11:15)
--- NOTE | 2017-03-04 16:13 | Discharge Summary ---
Discharge Summary Date of Service Mar 04, 2017. Discharge Summary Admission Date: Mar 01, 2017 at 23:55 Discharge Date: Mar 04, 2017 Discharge Disposition: Home Principal Diagnosis: Crohn's Flare Secondary Diagnoses/Problems: Please see H&P and Hospital Progress note Consultations: GI Medication Reconciliation New Medications: Prednisone (Prednisone) 10 Mg Tab 10 MG PO UD for 42 Days, #84 TAB 4 tabs PO daily x 7d, 3 tabs PO daily x 7 d, 2 tabs PO daily x 7d, 1 and a 1/2 tabs po daily x 7d, 1 tab po daily x 7d, and then 1/2 tab Po daily x 7d Continued Medications: Amitriptyline Hcl (Elavil) 10 Mg Tab 1-2 TABS PO HS PRN for Sleep Multivitamin (Multivitamin) Tab 1 TAB PO QAM Ustekinumab (Stelara) 90 Mg/Ml Inj 90 MG INJ Q8WKS, #1 As per GI Admission Information HPI (per Admitting provider): DATE OF ADMISSION: 03/01/2017 PRIMARY CARE PHYSICIAN: Dr. De La Fuente. HISTORY OF PRESENT ILLNESS: Medical history is significant for Crohn disease status post surgery, past tobacco abuse. Patient diagnosed with Crohn disease since he was 19 years old. Underwent a colonic resection at [facility] in 1996. In 2011, he was started on Humira. Subsequently stopped because of some diarrhea, constitutional sx. Patient switched to Cimzia. In October 2016, colonoscopy showed inflammation at the anal canal, distal rectum and at the ileocolic anastomosis and neoterminal ileum 2 to Crohn's. Two months ago, patient received his first dose of Stelera. Today, the patient noted achy sharp central abdominal discomfort more on left with nausea, 2 emesis episodes, decreased frequency of bowel movement to just once today from usual multiple episodes. No gross bleeding noted. No chest pain, no shortness of breath, no fever, no chills. MEDICAL HISTORY: As above. SURGERIES: Bowel surgery, appendectomy. HOME MEDICATIONS: Includes amitriptyline p.r.n., multivitamins, Stelara every 8 weeks. ALLERGIES: No known drug allergies. FAMILY HISTORY: Hypertension. 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 PHYSICAL EXAMINATION: VITAL SIGNS: Blood pressure noted to be 114/70, pulse rate 90, RR 16, temperature 36.7, sats 98 on room air. GENERAL: Noted to be comfortable, no respiratory distress. SKIN: Normal color. HEENT: [place] palpebral conjunctivae. Dry mucosa. NECK: No JVD. Supple. CHEST: Clear to auscultation. HEART: Regular rate and rhythm. ABDOMEN: Some distention. Healed hypogastric scar. Central abdominal tenderness. EXTREMITIES: No edema, no tenderness. NEUROLOGIC: No gross focality. LABS: Hemoglobin 14, hematocrit 40, white cells 12, platelets 413. Sodium 130, potassium 4.1, LFTS, lipase N CT abdomen and pelvis initial read ileitis, colonic anastomosis, poss partial low grade SBO. ASSESSMENT: 1. Abdominal pain IBD flare up history of surgery possible partial bowel obstruction 2. past tobacco abuse. PLAN: GMF analgesia, bowel rest, IV fluids steroid trial. Follow official CT results. Further management as per GI RE IBD flare up. DVT prophylaxis. Lovenoxn SQ Full code. Hospital Course Crohn's Flare Presented with Abdominal pain,nausea and Vomiting Has H/O IBD f Possible partial bowel obstruction on CT:: 1. There are postoperative changes from ileocecectomy with ileocolic anastomosis. There is no evidence of high-grade bowel obstruction. 2. There are 2 discontinuous loops of hyperemic and thick-walled small bowel with surrounding inflammatory change. 1 is located just proximal to the ileocolic anastomosis, and the other is located in the mid pelvis. The appearance is consistent with an enteritis, likely representing inflammatory bowel disease/Crohn's. Clinical correlation will be required. Was on NPO ,IV Solumedrol,analgesia, bowel rest, IV fluids Appreciate GI evaluation CONNOR-minimal small bowel loop dilatation Tolerating Clears-likely to advance as tolerated :await GI recommendation Tolerating advanced diet Asymptomatic today Discharge home om prednisone taper Past tobacco abuse. DVT prophylaxis. Lovenox SQ Full code. DISPOSITION In crease ambulation Discharge home today Total time spent on discharge = 35 minutes This includes examination of the patient, discharge planning, medication reconciliation, and communication with other providers. Discharge Instructions Date of Service Mar 04, 2017. Admission Reason for Admission: Ileitis Discharge Discharge Diagnosis / Problem: Crohn's Flare Discharge Goals Goal(s): Prevent Disease Progression Activity Recommendations Activity Limitations: resume your previous activity . Instructions / Follow-Up Instructions / Follow-Up Dr De La Fuente on 03/18/17 at 11:05 AM.Keep appointment with GI Current Hospital Diet Patient's current hospital diet: Regular Diet Discharge Diet Recommended Diet: Regular Diet Pending Studies Studies pending at discharge: no Medical Emergencies . Who to Call and When: Medical Emergencies: If at any time you feel your situation is an emergency, please call 911 immediately. . Non-Emergent Contact Non-Emergency issues call your: Primary Care Provider . . "Provider Documentation" section prepared by Ileana Keating. . VTE Core Measure Inpt VTE Proph given/why not?: Enoxaparin (Lovenox)SQ <Electronically signed by Ileana Keating M.D.> Additional Copies To Anoop De La Fuente M.D.
== END 2017-03-04 12:50 | disposition home or self-care (01) | DRG 386 ==
LOC: ENRESERVDT → ENRESERVTM → C.EDB 18:53 → C.MSN 23:55
PROVIDERS: ADMIT Internal Medicine; ATTEND Internal Medicine
DX: K50.912 Crohn's disease, unspecified, with intestinal obstruction (principal); K56.7 Ileus, unspecified; K52.9 Noninfective gastroenteritis and colitis, unspecified; Z87.891 Personal history of nicotine dependence; Z87.19 Personal history of other diseases of the digestive system; Z90.49 Acquired absence of other specified parts of digestive tract; Z79.899 Other long term (current) drug therapy

== ENCOUNTER 2019-02-28 05:44 | Inpatient (IN) ==
[2019-02-28] MEDS ORDERED: MoRPHine SULFATE 4 MG/ML 1 ML CARP\\VIAL IV STA (05:57)
[2019-02-28] MEDS ORDERED: ONDANSETRON INJ 2 MG/ML 2 ML VIAL IV STA (05:57)
[2019-02-28] MEDS ORDERED: SODIUM CHLORIDE 0.9% 1000ML 1,000 ML IV SCH (06:00)
[2019-02-28 06:34] LABS: Basophils # (auto) 0.02 K/uL (0-0.2); Basophils % (auto) 0.2 %; Eosinophils # (auto) 0.04 K/uL (0-0.5); Eosinophils % (auto) 0.4 %; Hematocrit (blood only) 44.7 % (42-52); Hemoglobin 15.5 g/dL (14.0-18.0); Immature Granulocytes # (auto) 0.02 K/uL (0.00-0.02); Immature Granulocytes % (auto) 0.2 %; Lymphocytes # (auto) 0.81 K/uL (1.2-3.4); Lymphocytes % (auto) 7.6 %; Mean Corpuscular Hgb Conc 34.7 g/dL (32-36); Mean Corpuscular Volume 88.2 fL (80-100); Mean Platelet Volume 9.6 fL (7.4-10.4); Monocytes # (auto) 0.44 K/uL (0.11-0.59); Monocytes % (auto) 4.1 %; Neutrophils # (auto) 9.38 K/uL (1.4-6.5); Neutrophils % (auto) 87.5 %; Platelet Count 280 K/uL (130-400); RDW Coefficient of Variation 13.5 % (11.5-14.5); RDW Standard Deviation 42.9 fL (36.4-46.3); Red Blood Count 5.07 M/uL (4.7-6.1); White Blood Count 10.71 K/uL (4.8-10.8)
[2019-02-28 06:52] LABS: Albumin Level 3.9 gm/dl (3.4-5.0); BUN Creatinine Ratio 14.5 (10-20); Calcium 9.4 mg/dl (8.5-10.1); Creatinine Clr Calc Pharmacy 128.6 ml/min; Est GFR (African American) 126.7; Est GFR (Non-African American) 109.3; Potassium 4.2 mmol/L (3.5-5.1)
[2019-02-28 06:55] LABS: Albumin Globulin Ratio 1.1 (0.9-2); Bilirubin,Total 0.6 mg/dl (0.2-1); Globulin 3.6 gm/dl (2.5-4.0); Total Protein 7.5 gm/dl (6.4-8.2)
--- NOTE | 2019-02-28 07:13 | Emergency Department Note ---
History of Present Illness General Chief Complaint: Abdominal Pain Stated Complaint: STOMACH PAIN Time Seen by Provider: 02/28/19 05:50 History of Present Illness Maximum Pain Intensity: 8 This is a 43-year-old male that presents to the emergency department via private vehicle with complaints of "stomach pain". The patient notes that 8 PM yesterday (about 10 hours ago), he began with right-sided abdominal pain. He notes he had near identical pain about 2 years ago when he had a partial obstruction. He notes that the pain comes in waves. Pain radiates through the abdomen and is a 4 times in an 8/10 at times. There is nausea but no vomiting. No diarrhea. Last bowel movement earlier this morning. He notes that he had a resection secondary to Crohn's disease about 22 years ago performed at [facility]. He last ate around 5-6 PM this past evening. No dysuria, chest pain, shortness breath, fevers, chills, hematuria. Home Medications Home Medications Medication Instructions Recorded Confirmed Type colestipol 1 g PO DAILY 02/28/19 02/28/19 History ustekinumab [Stelara] 90 mg SUBCUT Q8WK 02/28/19 02/28/19 History Allergies Allergy/AdvReac Type Severity Reaction Status Date / Time No Known Allergies Allergy Verified 02/28/19 06:00 Past Med/Surg History Medical History Crohns disease (Chronic) Surgical History History of appendectomy (Resolved) History of bowel resection (Resolved) Social History Preferred Language: Amharic Feels Safe at Home: Yes Smoking Status: Never smoker Review of Systems A total of 10 systems reviewed and were otherwise negative Physical Exam Vital Signs: Vital Signs - 24 hr 02/28/19 05:46 02/28/19 06:21 02/28/19 07:46 Temperature 36.6 C Temperature Source Oral Sepsis Recent Feve r Within 48 Hours No Sepsis New/Unexpla ined Change in Men john Status No Sepsis Action Take n by Nursing No Action Required Pulse Rate 83 Pulse Rate [Right Finger] 78 80 Respiratory Rate 16 20 18 Blood Pressure 119/83 Blood Pressure [Ri ght Arm] 116/82 113/76 Blood Pressure Anny n 95 Blood Pressure Anny n [Right Arm] 93 88 Blood Pressure Pos ition [Right Arm] Sitting Pulse Oximetry 96 98 96 Oxygen Delivery Me thod Room Air Room Air Physical Exam: VITAL SIGNS - Vital signs and nursing notes were reviewed. Stable and afebrile. GENERAL - 43-year-old male appearing his stated age who is in no acute distress. Communicates well with provider and answers questions appropriately. SKIN - Without rashes. No meningeal or petechial rash. HEAD - NC/AT. EYES - PERRL with EOMI bilaterally. Sclera anicteric. EARS - No deformities of external structures noted on gross examination bilaterally. No pain elicited with palpation of the tragus bilaterally. MOUTH/OROPHARYNX - Without perioral cyanosis. Buccal mucosa pink and moist and without leukoplakia. NECK - Neck with FROM. Supple to palpation. No lymphadenopathy noted. No nuchal rigidity. LUNGS - Chest wall symmetric without accessory muscle use, intercostals retractions, or central cyanosis. Normal vesicular breath sounds CTA B/L. No w heezes, rales, or rhonchi appreciated. CARDIAC - RRR with S1/S2. No murmur, rubs, or gallops appreciated. ABDOMEN - Abdominal contour normal without pulsations or visible masses. BS normoactive all four quadrants. Right-sided abdominal tenderness to palpation noted. No palpable masses, hepatosplenomegaly, or ascites noted. EXTREMITIES - No clubbing or peripheral cyanosis. No pretibial edema present. +5/5 strength noted in UE/LE bilaterally. NEUROLOGIC - Cranial nerves II through XII grossly intact. Sensory intact to light touch throughout. Patellar reflexes +2/4. PSYCH - A&O, and cooperates fully with examiner. Pt is very pleasant and interacts well with examiner. Course Administered Medications Ioversol (Optiray 320 100ml) 93 ml IV ONCE PRN PRN Reason: Interaction Checking Stop: 03/04/19 07:13 Last Admin: 02/28/19 07:14 Dose: 93 ml Documented by: [id number] Discontinued Medications Sodium Chloride (Nss 1000ml) 1,000 mls @ 999 mls/hr IV .Q1H1M NIMCO Stop: 02/28/19 07:00 Last Infusion: 02/28/19 07:46 Dose: 0 mls/hr Documented by: [id number] Admin: 02/28/19 06:14 Dose: 999 mls/hr Documented by: [id number] Morphine Sulfate (Morphine Sulfate) 4 mg IV NOW STA Stop: 02/28/19 05:58 Last Admin: 02/28/19 06:14 Dose: 4 mg Documented by: [id number] Ondansetron HCl (Zofran) 4 mg IV NOW STA Stop: 02/28/19 05:58 Last Admin: 02/28/19 06:14 Dose: 4 mg Documented by: [id number] Medical Decision Making Laboratory Data Result diagrams: 02/28/19 06:13 02/28/19 06:13 Lab Results 02/28/19 02/28/19 Range/Units 06:13 06:13 WBC 10.71 (4.8-10.8) K/uL RBC 5.07 (4.7-6.1) M/uL Hgb 15.5 (14.0-18.0) g/dL Hct 44.7 (42-52) % MCV 88.2 (80-100) fL MCH 30.6 (25-34) pg MCHC 34.7 (32-36) g/dL RDW Std Deviation 42.9 (36.4-46.3) fL RDW Coeff of Nacho 13.5 (11.5-14.5) % Plt Count 280 (130-400) K/uL MPV 9.6 (7.4-10.4) fL Immature Gran % (Auto) 0.2 % Neut % (Auto) 87.5 % Lymph % (Auto) 7.6 % Pope % (Auto) 4.1 % Eos % (Auto) 0.4 % Baso % (Auto) 0.2 % Immature Gran # (Auto) 0.02 (0.00-0.02) K/uL Neut # (Auto) 9.38 H (1.4-6.5) K/uL Lymph # (Auto) 0.81 L (1.2-3.4) K/uL Pope # (Auto) 0.44 (0.11-0.59) K/uL Eos # (Auto) 0.04 (0-0.5) K/uL Baso # (Auto) 0.02 (0-0.2) K/uL Sodium 140 (136-145) mmol/L Potassium 4.2 (3.5-5.1) mmol/L Chloride 107 (98-107) mmol/L Carbon Dioxide 27 (21-32) mmol/L Anion Gap 7.0 (3-11) BUN 12 (7-18) mg/dl Creatinine 0.83 (0.6-1.4) mg/dl Est Cr Clr Drug Dosing 128.6 ml/min Est GFR ( Amer) 126.7 Est GFR (Non-Af Amer) 109.3 BUN/Creatinine Ratio 14.5 (10-20) Glucose 99 (70-99) mg/dl Calcium 9.4 (8.5-10.1) mg/dl Total Bilirubin 0.6 (0.2-1) mg/dl AST 15 (15-37) U/L ALT 34 (12-78) U/L Alkaline Phosphatase 81 (45-117) U/L Total Protein 7.5 (6.4-8.2) gm/dl Albumin 3.9 (3.4-5.0) gm/dl Globulin 3.6 (2.5-4.0) gm/dl Albumin/Globulin Ratio 1.1 (0.9-2) Lipase 120 (73-393) U/L Imaging Data Radiologist's Impression: CT SCAN OF THE ABDOMEN AND PELVIS WITH IV CONTRAST CLINICAL HISTORY: Right-sided abdominal pain. COMPARISON STUDY: Abdominal CT dated 03/01/2017. TECHNIQUE: Following the IV administration of 93 cc of Optiray 320, CT scan of the abdomen and pelvis is performed from the lung bases to the proximal femora. Images are reviewed in the axial, sagittal, and coronal planes. IV contrast was administered without complication. A dose lowering technique was utilized adhering to the principles of ALARA. CT DOSE: 319.43 mGy.cm FINDINGS: Lung bases: The heart is normal in size and without pericardial effusion. There is a calcified granuloma at the left lung base. The lung bases are otherwise clear noting dependent atelectasis. There is a small hiatal hernia. Liver: The contrast-enhanced liver is normal in size, contour, and attenuation. There is no intrahepatic biliary ductal dilatation. The hepatic veins and portal veins are patent. Gallbladder: Unremarkable. Spleen: Normal in size and attenuation. Pancreas: Unremarkable. Adrenal glands: Unremarkable. Kidneys: The contrast enhanced kidneys are normal in size and without hydronephrosis. The kidneys enhance symmetrically. Abdominal vasculature: The abdominal aorta is normal in course and caliber. Bowel: There are postoperative changes from right ileocecectomy with ileocolic anastomosis. There is a short segment of wall thickening and hyperemia identified involving the distal ileum just proximal to the anastomosis. This extends at least 5 cm in length. The upstream small bowel is distended, fluid- filled, and fecalized. Upstream small bowel loops measure up to 3.2 cm, and this is consistent with small bowel obstruction. There is mild mesenteric edema and trace interloop fluid noted in the right lower quadrant. No pneumatosis in testinalis or portal venous gas is identified. There is colonic fecal retention. The appendix is not identified and reported surgically absent. Peritoneum: There is no intraperitoneal free air or abdominal ascites. There is a fat-containing umbilical hernia. Lymphadenopathy: None. Pelvic viscera: Calcifications are again seen within the bladder wall. The bladder is otherwise normal as visualized. The prostate and seminal vesicles are normal as imaged. Skeletal structures: No lytic or blastic lesions are seen. IMPRESSION: 1. Again seen are postoperative changes from ileocecectomy with ileocolic anastomosis. 2. There is a short segment of thick-walled and hyperemic small bowel just p roximal to the anastomosis. This extends approximately 5 cm in length, an is consistent with a nonspecific enteritis. Active Crohn's disease could have this appearance and correlation with the patient's clinical findings and medical history will be required. 3. The small bowel loops proximal to the inflamed loops are distended, fluid- filled, and fecalized. This is consistent with a small bowel obstruction, likely related to the focal enteritis. Underlying stricture would be impossible to exclude. 4. Trace interloop fluid is identified in the right lower quadrant. There is no intraperitoneal free air, pneumatosis intestinalis, or portal venous gas. 5. Additional findings as above. Electronically signed by: Elfego Urrutia M.D. 02/28/2019 7:34 AM MDM Narrative Patient was seen and evaluated as above in room A2. Review was performed of nu rsing notes and vital signs. After obtaining a thorough history and physical examination the above work up was performed. He presents to us today with abdominal pain. It is on the right side. He has a history of blockage. He states that this feels similar to previous. IV access was established. He was given IV morphine and Zofran as well as fluids. CT scan results as above. There is a small bowel obstruction with nonspecific enteritis. The findings were discussed with the on-call hospitalist, Dr. Vaca as well as the on-call general surgeon, Dr. Morse. He will be admitted to the medicine team for further evaluation and management with surgical consult. CBC reveals no significant leukocytosis or anemia. No emergent metabolic process. The patient was educated upon management, educated upon todays findings/results, educated upon importance of follow up from today's visit, educated upon symptoms in which to return, had questions answered prior to discharge, verbalized understanding, and was discharged home in good condition. IMPRESSION: [] Abdominal Pain In the evaluation and treatment of this patient, the following differential diagnoses were considered: ASC, IL, Pneumonia, GERD, Cholecystitis, Ascending Cholangitis, Cholydocholithiasis, Bowel Obstruction, PE, Amongst Others. Impression & Plan Small bowel obstruction, Crohns disease, Enteritis Discharge Plan Visit Data Chief Complaint: Abdominal Pain Stated Complaint: STOMACH PAIN ED Provider: Jason Dow ED Midlevel Provider: Stephen Neal Discharge Problem: Small bowel obstruction, Crohns disease, Enteritis Patient Disposition: Admitted As Inpatient Condition: Good Forms Stand Alone Forms: Call Back Authorization, [facility] Prescriptions Prescriptions: No Action colestipol 1 gram Tablet 1 g PO DAILY RF: 0 Stelara 90 mg/mL Syringe 90 mg subcut Q8WK RF: 0 Referrals Referrals: Anoop De La Fuente MD [Primary Care Provider] -
[2019-02-28] MEDS ORDERED: IOVERSOL 100ml IV PRN (07:14)
--- NOTE | 2019-02-28 07:35 | CT Scan Report ---
CT SCAN OF THE ABDOMEN AND PELVIS WITH IV CONTRAST CLINICAL HISTORY: Right-sided abdominal pain. COMPARISON STUDY: Abdominal CT dated 03/01/2017. TECHNIQUE: Following the IV administration of 93 cc of Optiray 320, CT scan of the abdomen and pelvi s is performed from the lung bases to the proximal femora. Images are reviewed in the axial, sagittal , and coronal planes. IV contrast was administered without complication. A dose lowering technique wa s utilized adhering to the principles of ALARA. CT DOSE: 319.43 mGy.cm FINDINGS: Lung bases: The heart is normal in size and without pericardial effusion. There is a calcified granul flavio at the left lung base. The lung bases are otherwise clear noting dependent atelectasis. There is a small hiatal hernia. Liver: The contrast-enhanced liver is normal in size, contour, and attenuation. There is no intrahepa tic biliary ductal dilatation. The hepatic veins and portal veins are patent. Gallbladder: Unremarkable. Spleen: Normal in size and attenuation. Pancreas: Unremarkable. Adrenal glands: Unremarkable. Kidneys: The contrast enhanced kidneys are normal in size and without hydronephrosis. The kidneys enh ance symmetrically. Abdominal vasculature: The abdominal aorta is normal in course and caliber. Bowel: There are postoperative changes from right ileocecectomy with ileocolic anastomosis. There is a short segment of wall thickening and hyperemia identified involving the distal ileum just proximal to the anastomosis. This extends at least 5 cm in length. The upstream small bowel is distended, flui d-filled, and fecalized. Upstream small bowel loops measure up to 3.2 cm, and this is consistent with small bowel obstruction. There is mild mesenteric edema and trace interloop fluid noted in the right lower quadrant. No pneumatosis intestinalis or portal venous gas is identified. There is colonic fec al retention. The appendix is not identified and reported surgically absent. Peritoneum: There is no intraperitoneal free air or abdominal ascites. There is a fat-containing umbi lical hernia. Lymphadenopathy: None. Pelvic viscera: Calcifications are again seen within the bladder wall. The bladder is otherwise sophy l as visualized. The prostate and seminal vesicles are normal as imaged. Skeletal structures: No lytic or blastic lesions are seen. IMPRESSION: 1. Again seen are postoperative changes from ileocecectomy with ileocolic anastomosis. 2. There is a short segment of thick-walled and hyperemic small bowel just proximal to the anastomosi s. This extends approximately 5 cm in length, an is consistent with a nonspecific enteritis. Active C rohn's disease could have this appearance and correlation with the patient's clinical findings and me dical history will be required. 3. The small bowel loops proximal to the inflamed loops are distended, fluid-filled, and fecalized. T his is consistent with a small bowel obstruction, likely related to the focal enteritis. Underlying s tricture would be impossible to exclude. 4. Trace interloop fluid is identified in the right lower quadrant. There is no intraperitoneal free air, pneumatosis intestinalis, or portal venous gas. 5. Additional findings as above. Electronically signed by: Elfego Urrutia M.D. 02/28/2019 7:34 AM
[2019-02-28] MEDS ORDERED: ONDANSETRON INJ 2 MG/ML 2 ML VIAL IV PRN (09:29)
[2019-02-28] MEDS ORDERED: MoRPHine SULFATE 2 MG/ML CARP IV PRN (09:29)
--- NOTE | 2019-02-28 09:31 | History & Physical Report ---
Date of Service February 28, 2019 Assessment & Plan (1) Exacerbation of Crohn's disease: Pt with evidence of enteritis on CT with resultant partial SBO - likely due to lapse in Stelara related to insurance issues - Surgery consulted and evaluted pt in ED - appreciate input, no acute need for surgical intervention, holding NGT for now since pt not vomiting - Consult GI - discussed case with RD via phone, appreciate input - Start IV solumedrol if GI agreeable - Defer decision on antibiotics to GI - initially held since pt afebrile, no leukocytosis, lactate <2 - Strict NPO today for bowel rest - if improving, consider clears tomorrow - If worsening symptoms, then re-evaluate for NGT placement - IV Morphine for pain control - Zofran for nausea - IVF with lactated ringers - Repeat labs in AM (2) Small bowel obstruction: See above (3) Crohns disease: See above Patient seen and evaluated with attending physician, Dr. Vaca. Plan of care discussed and as outlined above. Appreciate all consultants input. Mauro Dotson PA-C History of Present Illness Chief Complaint: Abdominal pain Primary Care Provider: Anoop De La Fuente MD This is a 43 y/o male with a PMH of fistulizing Crohn's disease s/p ileocolonic resection who presented to the ED today with RLQ abdominal pain and distention since yesterday evening. Pt was diagnosed with Crohn's disease at the age of 19 and has been previously treated with Imuran, sulfasalazine, Pentasa, Humira, Cimzia. Most recently pt has been on Stelara since Dec 2016. Pt has a history of 18 inch ileocolonic resection at [facility] in 1996. Last colonoscopy in 09/29 showed quiescent Crohn's, biopsies negative for dysplasia. EGD done later 09/29 for dysphagia showed normal EGD, stomach, duodenum but no abnormality to explain dysphagia; underwent empiric dilation which pt reports did help. Recently, pt changed jobs with resultant change in insurance. This resulted in a 1 month delay in getting the Stelara which he restarted 2-3 weeks ago. He was feeling well until this week. He notes that he has been traveling for the past 12 days and has not been following his usual diet and routine. Two days ago he started with decreased appetite. Last night he ate dinner of ravioli and initially felt fine. Around 8 pm he started with abdominal discomfort that he describes as abdomen felt "stiff." Tried to go to sleep but was up most of last night due to progressive RLQ pain/pressure. Pain does not radiate to back or groin but does seem to wax and wane. Associated waves of nausea and flushing but no chills or vomiting. These episodes only lasted a minute or two before resolving - happened at least 3-4 times. No nausea at present. Baseline bowel pattern since starting Colestipol in 2-3 semi-formed stools per day. Yesterday's BMs were smaller amounts than usual. No BM yet today. Passing small amounts of flatus but no eructation this morning. Abdominal pain initially improved with morphine in ED but now returning. No documented fevers although apparently felt warm per pt's . No chills, DESAI, dizziness, CP, dyspnea. Pt did try stool softener last night thinking that defecation would relieve the pain but no results. Allergies Allergy/AdvReac Type Severity Reaction Status Date / Time No Known Allergies Allergy Verified 02/28/19 06:00 Home Medications Home Medications Medication Instructions Recorded Confirmed Type colestipol 1 g PO DAILY 02/28/19 02/28/19 History ustekinumab [Stelara] 90 mg SUBCUT Q8WK 02/28/19 02/28/19 History Past Med/Surg History Medical History Crohns disease (Chronic) Follow[facility] (Dr. 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 Beliefs That Will Affect Care: None Current Living Situation: Spouse Other Information That Helps Us Care for You: No Feels Safe at Home: Yes Safety Concerns: Feels Safe At This Time Smoking Status: Never smoker Do You Dip or Chew Tobacco: No Second Hand Exposure: No Tobacco Cessation Education Requested by Patient: No Hx Alcohol Use: Yes Alcohol type: beer Hx Substance Use: No Review of Systems Review of Systems: All systems reviewed & are unremarkable except as noted in HPI & below Constitutional: + sweats and + anorexia; no fever, no chills and no weakness Eyes: no diplopia and no worsening vision Ear, Nose, Mouth, Throat: + dry mouth; no dysphagia Respiratory: no cough, no dyspnea, no hemoptysis and no wheezing Cardiovascular: no chest pain, no palpitations, no syncope and no edema Gastrointestinal: as per Subjective / HPI Genitourinary: no dysuria, no urinary frequency and no hematuria Musculoskeletal: no back pain, no joint pain and no muscle weakness Integumentary: no rash and no non-healing lesions Neurologic: no numbness, no tremor(s), no dizziness, no syncope, no headache(s) and no confusion Physical Exam Constitutional: WD/WN, vitals as above no acute distress Eyes: PERRL, conjunctivae normal, anicteric sclerae ENMT: external ear and nose normal, oropharynx normal Neck: trachea midline Respiratory: normal respiratory effort Auscultation: lungs clear to auscultation bilaterally; no rales, no rhonchi and no wheezes Cardiovascular: Rate/Rhythm: regular rate and regular rhythm Heart Sounds: no gallop, no murmur and no cardiac rub Vessels: dorsalis pedis pulses present Extremities: normal capillary refill; no calf tenderness and no pedal edema Gastrointestinal (Abdomen): Inspection/Auscultation: abdomen normal to inspection, + abdomen distended (mild) and normal bowel sounds Percussion/Palpation: + abdomen tender (mild to moderate in RLQ); no guarding Musculoskeletal: no cyanosis or clubbing, extremities motor strength 5/5 Head/Neck/Chest: normocephalic, head atraumatic and neck supple Extremities: no cyanosis and no clubbing Skin: no rashes, warm and dry no jaundice Neurologic: moves all extremities; no focal motor deficits Psychiatric: A+Ox3, euthymic affect Results & Data Vital Signs (Past 12 Hours) Vital Signs Temp Pulse Pulse Resp BP BP Pulse Ox 02/28/19 09:00 97 H 18 126/90 99 02/28/19 07:46 80 18 113/76 96 02/28/19 06:21 78 20 116/82 98 02/28/19 05:46 36.6 C 83 16 119/83 96 Laboratory Results Laboratory Results - last 24 hr 02/28/19 02/28/19 02/28/19 06:13 06:13 08:25 WBC 10.71 RBC 5.07 Hgb 15.5 Hct 44.7 MCV 88.2 MCH 30.6 MCHC 34.7 RDW Std Deviation 42.9 RDW Coeff of Nacho 13.5 Plt Count 280 MPV 9.6 Immature Gran % (Auto) 0.2 Neut % (Auto) 87.5 Lymph % (Auto) 7.6 Piatt % (Auto) 4.1 Eos % (Auto) 0.4 Baso % (Auto) 0.2 Immature Gran # (Auto) 0.02 Neut # (Auto) 9.38 H Lymph # (Auto) 0.81 L Piatt # (Auto) 0.44 Eos # (Auto) 0.04 Baso # (Auto) 0.02 Sodium 140 Potassium 4.2 Chloride 107 Carbon Dioxide 27 Anion Gap 7.0 BUN 12 Creatinine 0.83 Est Cr Clr Drug Dosing 128.6 Est GFR ( Amer) 126.7 Est GFR (Non-Af Amer) 109.3 BUN/Creatinine Ratio 14.5 Glucose 99 Lactate 1.2 Calcium 9.4 Total Bilirubin 0.6 AST 15 ALT 34 Alkaline Phosphatase 81 Total Protein 7.5 Albumin 3.9 Globulin 3.6 Albumin/Globulin Ratio 1.1 Lipase 120 Procalcitonin 02/28/19 08:25 WBC RBC Hgb Hct MCV MCH MCHC RDW Std Deviation RDW Coeff of Nacho Plt Count MPV Immature Gran % (Auto) Neut % (Auto) Lymph % (Auto) Piatt % (Auto) Eos % (Auto) Baso % (Auto) Immature Gran # (Auto) Neut # (Auto) Lymph # (Auto) Piatt # (Auto) Eos # (Auto) Baso # (Auto) Sodium Potassium Chloride Carbon Dioxide Anion Gap BUN Creatinine Est Cr Clr Drug Dosing Est GFR ( Amer) Est GFR (Non-Af Amer) BUN/Creatinine Ratio Glucose Lactate Calcium Total Bilirubin AST ALT Alkaline Phosphatase Total Protein Albumin Globulin Albumin/Globulin Ratio Lipase Procalcitonin < 0.[address] abdomen/pelvis 02/28/19 - IMPRESSION: 1. Again seen are postoperative changes from ileocecectomy with ileocolic anastomosis. 2. There is a short segment of thick-walled and hyperemic small bowel just proximal to the anastomosis. This extends approximately 5 cm in length, an is consistent with a nonspecific enteritis. Active Crohn's disease could have this appearance and correlation with the patient's clinical findings and medical history will be required. 3. The small bowel loops proximal to the inflamed loops are distended, fluid- filled, and fecalized. This is consistent with a small bowel obstruction, likely related to the focal enteritis. Underlying stricture would be impossible to exclude. 4. Trace interloop fluid is identified in the right lower quadrant. There is no intraperitoneal free air, pneumatosis intestinalis, or portal venous gas. 5. Additional findings as above. Medications Administered Ioversol (Optiray 320 100ml) 93 ml IV ONCE PRN PRN Reason: Interaction Checking Stop: 03/04/19 07:13 Last Admin: 02/28/19 07:14 Dose: 93 ml Documented by: [id number] Discontinued Medications Sodium Chloride (Nss 1000ml) 1,000 mls @ 999 mls/hr IV .Q1H1M NIMCO Stop: 02/28/19 07:00 Last Infusion: 02/28/19 07:46 Dose: 0 mls/hr Documented by: [id number] Admin: 02/28/19 06:14 Dose: 999 mls/hr Documented by: [id number] Morphine Sulfate (Morphine Sulfate) 4 mg IV NOW STA Stop: 02/28/19 05:58 Last Admin: 02/28/19 06:14 Dose: 4 mg Documented by: [id number] Ondansetron HCl (Zofran) 4 mg IV NOW STA Stop: 02/28/19 05:58 Last Admin: 02/28/19 06:14 Dose: 4 mg Documented by: [id number] Supervising Physician Co-Signing Physician Notes Attending addendum: Patient seen and examined, 43-year-old male with prior history of Crohn disease, status post bowel resection, ileostomy, presented with appropriate nausea CT abdomen pelvis shows partial small bowel obstruction, with inflammatory sign suggestive of Crohn's flare Appreciate input from surgery, Recommend n.p.o., IV fluids, GI evaluation for Crohn's colitis Started with IV Solu-Medrol as per GI Admitted to medical floor Full code Previsit MD (1) Crohns disease Digestive disease complication type: with intestinal obstruction Gastrointestinal tract location: unspecified location Qualified Code(s): K50.912 - Crohn's disease, unspecified, with intestinal obstruction (2) Exacerbation of Crohn's disease Digestive disease complication type: with intestinal obstruction Qualified Code(s): K50.912 - Crohn's disease, unspecified, with intestinal obstruction
[2019-02-28] MEDS: LACTATED RINGER'S 1,000 ML IV SCH ×2 (09:46→17:11)
--- NOTE | 2019-02-28 10:58 | Gastrointestinal Consultation ---
Date of Consultation February 28, 2019 Assessment & Plan (1) Exacerbation of Crohn's disease: 43 year old male w/ fistulizing Crohn's disease s/p ileocolonic resection in 1996 on Stelara who presents to the ED for abdominal pain, change in bowels habits x 24 hours. He does note recent delay in Stelara secondary to insurance issues but is now back on the medication as ordered. No black/bloody stools but increased frequency of BM. CT w/ short segment of thick-walled and hyperemic small bowel just proximal to the anastomosis site, ?active Crohn's w/ proximal distended, fluid-filled loops consistent w/ SBO. Evaluated by gen-surg in the ED SBO - No current indication for NG tube placement - NPO for bowel rest - Would recommend low fiber once diet is advanced past clears - Appreciate general surgery recommendations - Antiemetics PRN - Analgesia PRN but please try to limit narcotic analgesia Suspected IBD flare - Please check stool culture, stool for c.diff - If negative would start methyl prep 20 q8h - Hold empiric ABX for now - Consider MRE based off of clinical improvement - O/P colonoscopy timing to be determined Thank you for allowing us to participate in the care of this patient. Please call with any acute changes, questions or concerns. Please see addendum below with additional recommendation from my supervising physician. Present on Admission?: Yes Supervising Physician Co-Signing Physician Notes Attg add: I interviewed and examined pt, reviewed chart and labs. Pt with abd pain in RLQ, off Stelara x 1 month but s/p dose on 02/14. At present, has only mild pain, little appetite, abd distention resolved. Exam reveals pt who is comfortable with only mild tenderness in RLQ. Plan IV steroids, transition to PO. Can check Stelara levels as outpt. History of Present Illness Attending Physician: Oumou Vaca MD History of Present Illness 43 year old male w/ fistulizing Crohn's disease s/p ileocolonic resection in 1996 who presented to the ED today with RLQ abdominal pain and abd distention x 24 hours. Pt was seen and evaluated, chart reviewed. Notes he was in his typical state of health from a GI standpoint. Was traveling for work of recent, different diet and thought abd pain and constipation was secondary to dietary changes. However, last evening pain worsened, assocaited w/ severe bloating/distention. Bowels are more frequent, softer than normal. About 2-4 semi-formed stools daily. No black/bloody stools. No nausea, vomiting. No appetite. No fever, chills, CP, SOB. Denies sick contacts CD history, diagnosed age 19. Failed treatment w/ Imuran, sulfasalazine, Pentasa, Humira, Cimzia. Started on Stelara 2016 - missed a dose in November due to insurance issues. Hx ileocolonic resection otherwise no other abd surgeries CT: Again seen are postoperative changes from ileocecectomy with ileocolic anastomosis. There is a short segment of thick-walled and hyperemic small bowel just proximal to the anastomosis. This extends approximately 5 cm in length, an is consistent with a nonspecific enteritis. Active Crohn's disease could have this appearance and correlation with the patient's clinical findings and medical history will be required.The small bowel loops proximal to the inflamed loops are distended, fluid-filled, and fecalized. This is consistent with a small bowel obstruction, likely related to the focal enteritis. Underlying stricture would be impossible to exclude. Trace interloop fluid is identified in the right lower quadrant. There is no intraperitoneal free air, pneumatosis intestinalis, or portal venous gas. Colonoscopy 2018:Quiescent Crohn's disease. Inflammation was found.,improved compared to previous examinations. Biopsied. Patent functional end-to-end ileo- colonic anastomosis. biopsies negative for dysplasia. EGD 2018: No endoscopic esophageal abnormality to explain patient'sdysphagia. Esophagus dilated. Dilated.Z-line regular, 43 cm from the incisors. Biopsied.Normal stomach. Biopsied.Normal examined duodenum. Allergies Allergy/AdvReac Type Severity Reaction Status Date / Time No Known Allergies Allergy Verified 02/28/19 06:00 Home Medications Home Medications Medication Instructions Recorded Confirmed Type colestipol 1 g PO DAILY 02/28/19 02/28/19 History ustekinumab [Stelara] 90 mg SUBCUT Q8WK 02/28/19 02/28/19 History Patient History Medical History Crohns disease (Chronic) Follows with [facility] (Dr. 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 Beliefs That Will Affect Care: None Current Living Situation: Spouse Other Information That Helps Us Care for You: No Feels Safe at Home: Yes Safety Concerns: Feels Safe At This Time Smoking Status: Never smoker Do You Dip or Chew Tobacco: No Second Hand Exposure: No Tobacco Cessation Education Requested by Patient: No Hx Alcohol Use: Yes Alcohol type: beer Hx Substance Use: No Review of Systems Constitutional: no fever, no chills, no body aches and no fatigue Respiratory: no cough, no dyspnea and no wheezing Cardiovascular: no chest pain, no radiating jaw, neck or arm pain, no dyspnea and no dyspnea on exertion Gastrointestinal: + abdominal pain, + bloating, + early satiety, + change in bowel habits and + diarrhea/loose stools; no belching, no heartburn, no nausea, no vomiting, no coffee ground emesis, no hematemesis, no pain with swallowing, no dysphagia, no cramping, no excessive flatulence, no change in stools, no constipation, no fecal incontinence, no constant urge to pass stools, no blood in stools and no melena Physical Exam Constitutional: well developed and well nourished; no acute distress Respiratory: normal respiratory effort, lungs clear to auscultation Cardiovascular: RRR, no murmur, no edema Gastrointestinal (Abdomen): Inspection/Auscultation: abdomen normal to inspection, + abdomen distended and normal bowel sounds Percussion/Palpation: + abdomen tender and abdomen soft; no guarding and abdomen not rigid Results & Data Vital Signs (Past 12 Hours) Vital Signs Temp Pulse Pulse Resp BP BP Pulse Ox 02/28/19 09:30 36.6 C 74 17 127/82 100 02/28/19 09:00 97 H 18 126/90 99 02/28/19 07:46 80 18 113/76 96 02/28/19 06:21 78 20 116/82 98 02/28/19 05:46 36.6 C 83 16 119/83 96 Laboratory Results 02/28/19 02/28/19 02/28/19 Range/Units 08:25 08:25 06:13 WBC (4.8-10.8) K/uL RBC (4.7-6.1) M/uL Hgb (14.0-18.0) g/dL Hct (42-52) % MCV (80-100) fL MCH (25-34) pg MCHC (32-36) g/dL RDW Std Deviation (36.4-46.3) fL RDW Coeff of Nacho (11.5-14.5) % Plt Count (130-400) K/uL MPV (7.4-10.4) fL Immature Gran % (Auto) % Neut % (Auto) % Lymph % (Auto) % Kent % (Auto) % Eos % (Auto) % Baso % (Auto) % Immature Gran # (Auto) (0.00-0.02) K/uL Neut # (Auto) (1.4-6.5) K/uL Lymph # (Auto) (1.2-3.4) K/uL Kent # (Auto) (0.11-0.59) K/uL Eos # (Auto) (0-0.5) K/uL Baso # (Auto) (0-0.2) K/uL Sodium 140 (136-145) mmol/L Potassium 4.2 (3.5-5.1) mmol/L Chloride 107 (98-107) mmol/L Carbon Dioxide 27 (21-32) mmol/L Anion Gap 7.0 (3-11) BUN 12 (7-18) mg/dl Creatinine 0.83 (0.6-1.4) mg/dl Est Cr Clr Drug Dosing 128.6 ml/min Est GFR ( Amer) 126.7 Est GFR (Non-Af Amer) 109.3 BUN/Creatinine Ratio 14.5 (10-20) Glucose 99 (70-99) mg/dl Lactate 1.2 (0.4-2.0) mmol/L Calcium 9.4 (8.5-10.1) mg/dl Total Bilirubin 0.6 (0.2-1) mg/dl AST 15 (15-37) U/L ALT 34 (12-78) U/L Alkaline Phosphatase 81 (45-117) U/L Total Protein 7.5 (6.4-8.2) gm/dl Albumin 3.9 (3.4-5.0) gm/dl Globulin 3.6 (2.5-4.0) gm/dl Albumin/Globulin Ratio 1.1 (0.9-2) Lipase 120 (73-393) U/L Procalcitonin < 0.05 (0-0.5) ng/ml 02/28/19 Range/Units 06:13 WBC 10.71 (4.8-10.8) K/uL RBC 5.07 (4.7-6.1) M/uL Hgb 15.5 (14.0-18.0) g/dL Hct 44.7 (42-52) % MCV 88.2 (80-100) fL MCH 30.6 (25-34) pg MCHC 34.7 (32-36) g/dL RDW Std Deviation 42.9 (36.4-46.3) fL RDW Coeff of Nacho 13.5 (11.5-14.5) % Plt Count 280 (130-400) K/uL MPV 9.6 (7.4-10.4) fL Immature Gran % (Auto) 0.2 % Neut % (Auto) 87.5 % Lymph % (Auto) 7.6 % Kent % (Auto) 4.1 % Eos % (Auto) 0.4 % Baso % (Auto) 0.2 % Immature Gran # (Auto) 0.02 (0.00-0.02) K/uL Neut # (Auto) 9.38 H (1.4-6.5) K/uL Lymph # (Auto) 0.81 L (1.2-3.4) K/uL Kent # (Auto) 0.44 (0.11-0.59) K/uL Eos # (Auto) 0.04 (0-0.5) K/uL Baso # (Auto) 0.02 (0-0.2) K/uL Sodium (136-145) mmol/L Potassium (3.5-5.1) mmol/L Chloride (98-107) mmol/L Carbon Dioxide (21-32) mmol/L Anion Gap (3-11) BUN (7-18) mg/dl Creatinine (0.6-1.4) mg/dl Est Cr Clr Drug Dosing ml/min Est GFR ( Amer) Est GFR (Non-Af Amer) BUN/Creatinine Ratio (10-20) Glucose (70-99) mg/dl Lactate (0.4-2.0) mmol/L Calcium (8.5-10.1) mg/dl Total Bilirubin (0.2-1) mg/dl AST (15-37) U/L ALT (12-78) U/L Alkaline Phosphatase (45-117) U/L Total Protein (6.4-8.2) gm/dl Albumin (3.4-5.0) gm/dl Globulin (2.5-4.0) gm/dl Albumin/Globulin Ratio (0.9-2) Lipase (73-393) U/L Procalcitonin (0-0.5) ng/ml (1) Exacerbation of Crohn's disease Digestive disease complication type: with intestinal obstruction Qualified Code(s): K50.912 - Crohn's disease, unspecified, with intestinal obstruction
[2019-02-28] MEDS: methylPREDNISolone 20 MG in SYRINGE 0 ML IV SCH ×2 (14:06→20:06)
[2019-02-28 14:18] LABS: Appearance Urine Clear (Clear); Bilirubin Urine Negative (Negative); Blood Urine Negative (Negative); Color Urine Yellow; Glucose Urine UA Negative (Negative); Ketones Urine Negative (Negative); Leukocyte Esterase Urine Negative (Negative); Nitrite Urine Negative (Negative); Protein Urine Negative (Negative); Specific Gravity Urine 1.024 (1.000-1.030); Urobilinogen Urine Negative (Negative); pH Urine 6.5 (4.5-7.5)
--- NOTE | 2019-02-28 17:56 | Surgery Consultation ---
Date of Consultation February 28, 2019 Assessment & Plan (1) Exacerbation of Crohn's disease: This patient appears to have an exacerbation of his Crohn's disease just proximal to the ileocolonic anastomosis. There is edema in the wall of the bowel. There is dilatation of the small bowel proximal to that consistent with obstruction. I agree that medical management is appropriate. This will most likely help this to resolve which will help the small bowel obstruction to resolve as well. Surgical intervention is not immediately necessary. Present on Admission?: Yes History of Present Illness Requesting Physician: Oumou Vaca MD Attending Physician: Oumou Vaca MD History of Present Illness This is a 43-year-old male that I been asked to see by Dr. Haider who presented with a complaint of abdominal pain centered mostly in the right lower quadrant. This began 1 to 2 days ago. It was unrelenting. He developed nausea but has not vomited. Patient has a history of Crohn's disease. He underwent resection of the terminal ileum and proximal colon about 20 years ago. He had similar symptoms 2 years ago. Was found to have a small bowel obstruction that was partial. He was treated with conservative measures and it resolved. The symptoms are similar to the ones had at that time. He had been well until this morning. He has passed small amounts of flatus but has not had a bowel movement. He is moving his urine without difficulty. He denies fever and chills. He has not had any dysuria or hematuria. He has had more bowel movements than usual and they have been very loose. When he was at his baseline he would have 2-3 very soft bowel movements a day. He has not had a lot of mucus with his bowels. He had been doing some traveling to [place] over the last 12 to 14 days. There was also an issue with him being able to take his Stelara over the last month. Allergies Allergy/AdvReac Type Severity Reaction Status Date / Time No Known Allergies Allergy Verified 02/28/19 06:00 Home Medications Home Medications Medication Instructions Recorded Confirmed Type colestipol 1 g PO DAILY 02/28/19 02/28/19 History ustekinumab [Stelara] 90 mg SUBCUT Q8WK 02/28/19 02/28/19 History Patient History Medical History Crohns disease (Chronic) Follows with [facility] (Dr. Perales) - maintained on [facility] Surgical History History of appendectomy (Resolved) History of bowel resection (Resolved) 18 inches ileocolonic resection - 1996 ([place]) Social History Preferred Language: Trinidadian Communication Ability: Effective Family Nurse Required: No Beliefs That Will Affect Care: None Current Living Situation: Spouse Other Information That Helps Us Care for You: No Feels Safe at Home: Yes Safety Concerns: Feels Safe At This Time Smoking Status: Never smoker Do You Dip or Chew Tobacco: No Second Hand Exposure: No Tobacco Cessation Education Requested by Patient: No Hx Alcohol Use: Yes Alcohol type: beer Hx Substance Use: No Review of Systems Review of Systems: All systems reviewed & are unremarkable except as noted in HPI & below Physical Exam Constitutional: well developed; no acute distress Neck: trachea midline Respiratory: normal respiratory effort, lungs clear to auscultation Cardiovascular: Rate/Rhythm: regular rate and regular rhythm Gastrointestinal (Abdomen): Inspection/Auscultation: + abdomen distended (Mild) and normal bowel sounds Percussion/Palpation: + abdomen tender (Right lower quadrant to mild palpation) and abdomen soft; no abdominal mass Skin: no rashes, warm and dry Lymphatic: no cervical lymphadenopathy Results & Data Vital Signs (Past 12 Hours) Vital Signs Temp Pulse Resp BP Pulse Ox 02/28/19 14:54 36.8 C 62 20 114/72 97 02/28/19 09:30 36.6 C 74 17 127/82 100 02/28/19 09:00 97 H 18 126/90 99 02/28/19 07:46 80 18 113/76 96 02/28/19 06:21 78 20 116/82 98 Laboratory Results 02/28/19 02/28/19 02/28/19 Range/Units 14:05 08:25 08:25 WBC (4.8-10.8) K/uL RBC (4.7-6.1) M/uL Hgb (14.0-18.0) g/dL Hct (42-52) % MCV (80-100) fL MCH (25-34) pg MCHC (32-36) g/dL RDW Std Deviation (36.4-46.3) fL RDW Coeff of Nacho (11.5-14.5) % Plt Count (130-400) K/uL MPV (7.4-10.4) fL Immature Gran % (Auto) % Neut % (Auto) % Lymph % (Auto) % [place] % (Auto) % Eos % (Auto) % Baso % (Auto) % Immature Gran # (Auto) (0.00-0.02) K/uL Neut # (Auto) (1.4-6.5) K/uL Lymph # (Auto) (1.2-3.4) K/uL [place] # (Auto) (0.11-0.59) K/uL Eos # (Auto) (0-0.5) K/uL Baso # (Auto) (0-0.2) K/uL Sodium (136-145) mmol/L Potassium (3.5-5.1) mmol/L Chloride (98-107) mmol/L Carbon Dioxide (21-32) mmol/L Anion Gap (3-11) BUN (7-18) mg/dl Creatinine (0.6-1.4) mg/dl Est Cr Clr Drug Dosing ml/min Est GFR ( Amer) Est GFR (Non-Af Amer) BUN/Creatinine Ratio (10-20) Glucose (70-99) mg/dl Lactate 1.2 (0.4-2.0) mmol/L Calcium (8.5-10.1) mg/dl Total Bilirubin (0.2-1) mg/dl AST (15-37) U/L ALT (12-78) U/L Alkaline Phosphatase (45-117) U/L Total Protein (6.4-8.2) gm/dl Albumin (3.4-5.0) gm/dl Globulin (2.5-4.0) gm/dl Albumin/Globulin Ratio (0.9-2) Lipase (73-393) U/L Procalcitonin < 0.05 (0-0.5) ng/ml Urine Color Yellow Urine Appearance Clear (Clear) Urine pH 6.5 (4.5-7.5) Ur Specific [place] 1.024 (1.000-1.030) Urine Protein Negative (Negative) Urine Glucose (UA) Negative (Negative) Urine Ketones Negative (Negative) Urine Blood Negative (Negative) Urine Nitrite Negative (Negative) Urine Bilirubin Negative (Negative) Urine Urobilinogen Negative (Negative) Ur Leukocyte Esterase Negative (Negative) 02/28/19 02/28/19 Range/Units 06:13 06:13 WBC 10.71 (4.8-10.8) K/uL RBC 5.07 (4.7-6.1) M/uL Hgb 15.5 (14.0-18.0) g/dL Hct 44.7 (42-52) % MCV 88.2 (80-100) fL MCH 30.6 (25-34) pg MCHC 34.7 (32-36) g/dL RDW Std Deviation 42.9 (36.4-46.3) fL RDW Coeff of Nacho 13.5 (11.5-14.5) % Plt Count 280 (130-400) K/uL MPV 9.6 (7.4-10.4) fL Immature Gran % (Auto) 0.2 % Neut % (Auto) 87.5 % Lymph % (Auto) 7.6 % [place] % (Auto) 4.1 % Eos % (Auto) 0.4 % Baso % (Auto) 0.2 % Immature Gran # (Auto) 0.02 (0.00-0.02) K/uL Neut # (Auto) 9.38 H (1.4-6.5) K/uL Lymph # (Auto) 0.81 L (1.2-3.4) K/uL [place] # (Auto) 0.44 (0.11-0.59) K/uL Eos # (Auto) 0.04 (0-0.5) K/uL Baso # (Auto) 0.02 (0-0.2) K/uL Sodium 140 (136-145) mmol/L Potassium 4.2 (3.5-5.1) mmol/L Chloride 107 (98-107) mmol/L Carbon Dioxide 27 (21-32) mmol/L Anion Gap 7.0 (3-11) BUN 12 (7-18) mg/dl Creatinine 0.83 (0.6-1.4) mg/dl Est Cr Clr Drug Dosing 128.6 ml/min Est GFR ( Amer) 126.7 Est GFR (Non-Af Amer) 109.3 BUN/Creatinine Ratio 14.5 (10-20) Glucose 99 (70-99) mg/dl Lactate (0.4-2.0) mmol/L Calcium 9.4 (8.5-10.1) mg/dl Total Bilirubin 0.6 (0.2-1) mg/dl AST 15 (15-37) U/L ALT 34 (12-78) U/L Alkaline Phosphatase 81 (45-117) U/L Total Protein 7.5 (6.4-8.2) gm/dl Albumin 3.9 (3.4-5.0) gm/dl Globulin 3.6 (2.5-4.0) gm/dl Albumin/Globulin Ratio 1.1 (0.9-2) Lipase 120 (73-393) U/L Procalcitonin (0-0.5) ng/ml Urine Color Urine Appearance (Clear) Urine pH (4.5-7.5) Ur Specific [place] (1.000-1.030) Urine Protein (Negative) Urine Glucose (UA) (Negative) Urine Ketones (Negative) Urine Blood (Negative) Urine Nitrite (Negative) Urine Bilirubin (Negative) Urine Urobilinogen (Negative) Ur Leukocyte Esterase (Negative) Diagnostic Findings CLINICAL HISTORY: Right-sided abdominal pain. COMPARISON STUDY: Abdominal CT dated 03/01/2017. TECHNIQUE: Following the IV administration of 93 cc of Optiray 320, CT scan of the abdomen and pelvis is performed from the lung bases to the proximal femora. Images are reviewed in the axial, sagittal, and coronal planes. IV contrast was administered without complication. A dose lowering technique was utilized adhering to the principles of ALARA. CT DOSE: 319.43 mGy.cm FINDINGS: Lung bases: The heart is normal in size and without pericardial effusion. There is a calcified granuloma at the left lung base. The lung bases are otherwise clear noting dependent atelectasis. There is a small hiatal hernia. Liver: The contrast-enhanced liver is normal in size, contour, and attenuation. There is no intrahepatic biliary ductal dilatation. The hepatic veins and portal veins are patent. Gallbladder: Unremarkable. Spleen: Normal in size and attenuation. Pancreas: Unremarkable. Adrenal glands: Unremarkable. Kidneys: The contrast enhanced kidneys are normal in size and without hydronephrosis. The kidneys enhance symmetrically. Abdominal vasculature: The abdominal aorta is normal in course and caliber. Bowel: There are postoperative changes from right ileocecectomy with ileocolic anastomosis. There is a short segment of wall thickening and hyperemia identified involving the distal ileum just proximal to the anastomosis. This extends at least 5 cm in length. The upstream small bowel is distended, fluid- filled, and fecalized. Upstream small bowel loops measure up to 3.2 cm, and this is consistent with small bowel obstruction. There is mild mesenteric edema and trace interloop fluid noted in the right lower quadrant. No pneumatosis intestinalis or portal venous gas is identified. There is colonic fecal retention. The appendix is not identified and reported surgically absent. Peritoneum: There is no intraperitoneal free air or abdominal ascites. There is a fat-containing umbilical hernia. Lymphadenopathy: None. Pelvic viscera: Calcifications are again seen within the bladder wall. The bladder is otherwise normal as visualized. The prostate and seminal vesicles are normal as imaged. Skeletal structures: No lytic or blastic lesions are seen. IMPRESSION: 1. Again seen are postoperative changes from ileocecectomy with ileocolic anastomosis. 2. There is a short segment of thick-walled and hyperemic small bowel just proximal to the anastomosis. This extends approximately 5 cm in length, an is consistent with a nonspecific enteritis. Active Crohn's disease could have this appearance and correlation with the patient's clinical findings and medical history will be required. 3. The small bowel loops proximal to the inflamed loops are distended, fluid- filled, and fecalized. This is consistent with a small bowel obstruction, likely related to the focal enteritis. Underlying stricture would be impossible to exclude. 4. Trace interloop fluid is identified in the right lower quadrant. There is no intraperitoneal free air, pneumatosis intestinalis, or portal venous gas. 5. Additional findings as above. (1) Exacerbation of Crohn's disease Digestive disease complication type: with intestinal obstruction Qualified Code(s): K50.912 - Crohn's disease, unspecified, with intestinal obstruction
[2019-03-01] MEDS: LACTATED RINGER'S 1,000 ML IV SCH ×4 (01:00→23:11)
[2019-03-01 07:38] LABS: Hematocrit (blood only) 45.1 % (42-52); Hemoglobin 15.1 g/dL (14.0-18.0); Mean Corpuscular Hgb Conc 33.5 g/dL (32-36); Mean Corpuscular Volume 89.8 fL (80-100); Mean Platelet Volume 9.4 fL (7.4-10.4); Platelet Count 296 K/uL (130-400); RDW Coefficient of Variation 13.5 % (11.5-14.5); RDW Standard Deviation 44.3 fL (36.4-46.3); Red Blood Count 5.02 M/uL (4.7-6.1); White Blood Count 7.42 K/uL (4.8-10.8)
[2019-03-01] MEDS: methylPREDNISolone 20 MG in SYRINGE 0 ML IV SCH ×3 (08:00→20:29)
[2019-03-01 08:08] LABS: BUN Creatinine Ratio 12.1 (10-20); Calcium 9.5 mg/dl (8.5-10.1); Creatinine Clr Calc Pharmacy 125.5 ml/min; Est GFR (African American) 125.4; Est GFR (Non-African American) 108.2
--- NOTE | 2019-03-01 10:24 | Surgery Progress Note ---
Date of Service March 01, 2019 Assessment & Plan (1) Small bowel obstruction: Patient is now passing flatus Is improved significantly after just 24 hours Would continue with present regimen but can begin clear liquid diet Present on Admission?: Yes (2) Exacerbation of Crohn's disease: As above Present on Admission?: Yes Subjective Feels much better today Denies abdominal pain Passing flatus No Denies nausea and vomiting No abdominal distention Physical Exam Gastrointestinal (Abdomen): Inspection/Auscultation: normal bowel sounds; abdomen not distended Percussion/Palpation: abdomen soft; abdomen nontender Results & Data Vital Signs (Past 12 Hours) Vital Signs Temp Pulse Resp BP BP Pulse Ox 03/01/19 07:57 36.4 C L 18 120/80 98 02/28/19 23:07 36.8 C 99 H 18 115/71 94 (1) Exacerbation of Crohn's disease Digestive disease complication type: with intestinal obstruction Qualified Code(s): K50.912 - Crohn's disease, unspecified, with intestinal obstruction
--- NOTE | 2019-03-01 16:07 | Gastroenterology Progress Note ---
Date of Service March 01, 2019 Subjective Pt much improved today. No pain, no use of narcs, kaia PO with vigorous appetite, BM today. On exam, his abd is non tender and non distended, with normoactive BS. 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 For now, adv diet to low res as tolerated, plan for d/c on brief oral steroid taper tomorrow. Results & Data Vital Signs (Past 12 Hours) Vital Signs Temp Pulse Resp BP BP Pulse Ox 03/01/19 15:20 36.9 C 88 16 114/74 99 03/01/19 11:30 36.4 C L 88 18 110/72 99 03/01/19 07:57 36.4 C L 18 120/80 98
--- NOTE | 2019-03-02 06:41 | Hospitalist Progress Note ---
Date of Service March 01, 2019 LATE ENTRY ; PT WAS SEEN ON 03/01 AT APPROX 5 PM Assessment & Plan (1) Exacerbation of Crohn's disease: presented with abdominal pain /distention , nausea evidence of enteritis on CT with resultant partial SBO - likely due to lapse in Stelara related to insurance issues - Surgery consulted and evaluated pt in ED - appreciate input, no acute need for surgical intervention, started on clears as pt has improved markedly clinically - appreciate GI consult on IV Solu Medrol , will be transitioned to Oral prednisone - (2) Small bowel obstruction: due to inflammatory bowel disease prior hx of illectomy of Crohn's disease clinically resolved , able to pass gas abdominal pain resolved no nausea and vomiting started on clears , tolerating well surgery following , no indication for surgery (3) Crohns disease: follow is GI [facility] presents with possible Crohn's flare IV solumedrol ordered by GI ordered to advance diet plan to change to oral prednisone tomorrow -as pt is improving clinically FULL CODE DVT PROPHYLAXIS: low risk SCD and teds , ambulate DISPOTISION : plan is to discharge home in next 24-48 hrs if remains medically stable Subjective Feels much better today no complain of abdominal pain Passing flatus had 2 bowel movements Denies nausea and vomiting No abdominal distention-diet advanced to clears , tolerating well Physical Exam Constitutional: WD/WN, vitals as above well developed and well nourished; no acute distress Eyes: PERRL, conjunctivae normal, anicteric sclerae ENMT: external ear and nose normal, oropharynx normal Neck: trachea midline Respiratory: normal respiratory effort, lungs clear to auscultation normal respiratory effort Auscultation: lungs clear to auscultation bilaterally; no rales, no rhonchi and no wheezes Cardiovascular: RRR, no murmur, no edema Rate/Rhythm: regular rate and regular rhythm Heart Sounds: no gallop, no murmur and no cardiac rub Vessels: dorsalis pedis pulses present Extremities: normal capillary refill; no calf tenderness and no pedal edema Gastrointestinal (Abdomen): Inspection/Auscultation: abdomen normal to inspection and normal bowel sounds; abdomen not distended Percussion/Palpation: abdomen soft; abdomen nontender, no guarding, abdomen not rigid and no abdominal mass Musculoskeletal: no cyanosis or clubbing, extremities motor strength 5/5 Head/Neck/Chest: normocephalic, head atraumatic and neck supple Extremities: no cyanosis and no clubbing Skin: no rashes, warm and dry no jaundice Neurologic: moves all extremities; no focal motor deficits Psychiatric: A+Ox3, euthymic affect Lymphatic: no cervical lymphadenopathy Results & Data Vital Signs (Past 12 Hours) Vital Signs Temp Pulse Resp BP Pulse Ox 03/01/19 23:37 36.5 C 65 18 122/80 96 (1) Crohns disease Digestive disease complication type: with intestinal obstruction Gastrointestinal tract location: unspecified location Qualified Code(s): K50.912 - Crohn's disease, unspecified, with intestinal obstruction (2) Exacerbation of Crohn's disease Digestive disease complication type: with intestinal obstruction Qualified Code(s): K50.912 - Crohn's disease, unspecified, with intestinal obstruction
[2019-03-02] MEDS: LACTATED RINGER'S 1,000 ML IV SCH (07:48)
[2019-03-02] MEDS: methylPREDNISolone 20 MG in SYRINGE 0 ML IV SCH (08:58)
--- NOTE | 2019-03-02 11:29 | Gastroenterology Progress Note ---
Date of Service March 02, 2019 Subjective Pt is without any complaint - "feel great!" Sweta PO, no abd pain, no n/v. Exam shows that he is comfortable; his abd is entirely non tender. Ok for d/c - pred 40 x 1 week, then 30 1 week; low res diet. I will arrange GI f/u. Results & Data Vital Signs (Past 12 Hours) Vital Signs Temp Pulse Resp BP BP Pulse Ox 03/02/19 06:46 36.5 C 75 16 122/81 99 03/01/19 23:37 36.5 C 65 18 122/80 96
--- NOTE | 2019-03-02 12:13 | Surgery Progress Note ---
Date of Service March 02, 2019 Assessment & Plan (1) Exacerbation of Crohn's disease: Small bowel obstruction as result of the inflammatory process is resolving on medical management No need for surgical intervention at this time (2) Small bowel obstruction: As above Subjective Feels much better today Pain minimal Has had 2 bowel movements Passing flatus Denies nausea and vomiting Physical Exam Constitutional: no acute distress Gastrointestinal (Abdomen): Inspection/Auscultation: normal bowel sounds; abdomen not distended Percussion/Palpation: + abdomen tender (Mild tenderness in the right lower quadrant but greatly improved) and abdomen soft Results & Data Vital Signs (Past 12 Hours) Vital Signs Temp Pulse Resp BP Pulse Ox 03/02/19 06:46 36.5 C 75 16 122/81 99 (1) Exacerbation of Crohn's disease Digestive disease complication type: with intestinal obstruction Qualified Code(s): K50.912 - Crohn's disease, unspecified, with intestinal obstruction
--- NOTE | 2019-03-02 13:19 | Discharge Summary ---
Date of Service March 02, 2019 Admission HPI Per Admitting Provider This is a 43 y/o male with a PMH of fistulizing Crohn's disease s/p ileocolonic resection who presented to the ED today with RLQ abdominal pain and distention since yesterday evening. Pt was diagnosed with Crohn's disease at the age of 19 and has been previously treated with Imuran, sulfasalazine, Pentasa, Humira, Cimzia. Most recently pt has been on Stelara since Dec 2016. Pt has a history of 18 inch ileocolonic resection at [place] in 1996. Last colonoscopy in 09/29 showed quiescent Crohn's, biopsies negative for dysplasia. EGD done later 09/29 for dysphagia showed normal EGD, stomach, duodenum but no abnormality to explain dysphagia; underwent empiric dilation which pt reports did help. Recently, pt changed jobs with resultant change in insurance. This resulted in a 1 month delay in getting the Stelara which he restarted 2-3 weeks ago. He was feeling well until this week. He notes that he has been traveling for the past 12 days and has not been following his usual diet and routine. Two days ago he started with decreased appetite. Last night he ate dinner of [employer] and initially felt fine. Around 8 pm he started with abdominal discomfort that he describes as abdomen felt "stiff." Tried to go to sleep but was up most of last night due to progressive RLQ pain/pressure. Pain does not radiate to back or groin but does seem to wax and wane. Associated waves of nausea and flushing but no chills or vomiting. These episodes only lasted a minute or two before resolving - happened at least 3-4 times. No nausea at present. Baseline bowel pattern since starting Colestipol in 2-3 semi-formed stools per day. Yesterday's BMs were smaller amounts than usual. No BM yet today. Passing small amounts of flatus but no eructation this morning. Abdominal pain initially improved with morphine in ED but now returning. No documented fevers although apparently felt warm per pt's . No chills, DESAI, dizziness, CP, dyspnea. Pt did try stool softener last night thinking that defecation would relieve the pain but no results. Principal Diagnosis Crohn's flare, small bowel obstruction, resolved Discharge Exam Constitutional WD/WN, vitals as above well developed and well nourished; no acute distress Eyes PERRL, conjunctivae normal, anicteric sclerae ENMT external ear and nose normal, oropharynx normal Neck trachea midline Respiratory normal respiratory effort, lungs clear to auscultation Auscultation: lungs clear to auscultation bilaterally; no rales, no rhonchi and no wheezes Cardiovascular RRR, no murmur, no edema Rate/Rhythm: regular rate and regular rhythm Gastrointestinal (Abdomen) Inspection/Auscultation: abdomen normal to inspection and normal bowel sounds; abdomen not distended Percussion/Palpation: abdomen soft; abdomen nontender Musculoskeletal no cyanosis or clubbing, extremities motor strength 5/5 Extremities: no cyanosis and no clubbing Skin no rashes, warm and dry Neurologic moves all extremities; no focal motor deficits Psychiatric A+Ox3, euthymic affect Discharge Data Allergies Allergy/AdvReac Type Severity Reaction Status Date / Time No Known Allergies Allergy Verified 02/28/19 06:00 Consultations 02/28/19 09:29 Consult Gastroenterology Routine Consult General Surgery Routine Ordered Studies 02/28/19 05:57 CT abd pelvis IV con only Stat Hospital Course (1) Exacerbation of Crohn's disease: Symptom has resolved, diet advanced, tolerating well, no complaint of abdominal pain, had normal bowel movement, evaluated by GI today stable to be discharged home Presented with abdominal pain nausea CT and pelvis evidence of myelitis with resultant partial SBO - Patient has Crohn's disease status post right colectomy years back, Has been on Stelara Has not been able to take for last 1-2 months secondary to change of job and insurance issues Possible leading to Crohn's flare - Surgery consulted and evaluted pt in ED - Patient does not need any surgical intervention, no evidence of acute abdomen, -GI consulted, appreciate input patient was started with IV Solu-Medrol, transition to p.o. prednisone as clinically improved - Diet advanced, tolerating well - Patient evaluated by GI this morning, no complaint abdominal pain normal bowel movement ambulating hallway afebrile, Stable to be discharged home, will be discharged with p.o. prednisone 40 mg daily for 7 days, followed by 30 mg daily for 30 days, GI clinic will arrange posthospital follow-up within 3-4 weeks (2) Small bowel obstruction: Resolved Secondary to acute inflammation/Crohn's disease flare , having normal bowel movement, no complaint of abdomen pain no nausea, Diet advanced, tolerating well (3) Crohns disease: Patient will be discharged home on prednisone GI follow-up at the clinic Total Time Total Time Spent Total Time Spent (In Minutes): Approximate 40 minutes Total Time Includes: Examination of the Patient, Discharge Planning, Medication Reconciliation and Communication With Other Providers Discharge Plan Discharge Items Patient Disposition: Home - Self-Care Reason For Visit: SMALL BOWEL OBSTRUCTION Discharge Diagnosis: CROHN'S DISEASE/small bowel obstructionresolved Condition: Good Discharge Goals: Decrease discomfort, Diagnostic testing and Therapeutic intervention Activity: Resume your previous activity Non-emergency contact: Primary Care Provider Call non-emergency contact if: you have any medication questions Follow-up/Referrals: Anoop De La Fuente MD [Primary Care Provider] - Diet: Low Fiber Addtl Provider Instructions: Follow-up gastroenterology in 2-3 weeks, office will call with appointment Hospital follow-up with family physician in 1 week Do not take aspirin, Motrin, Aleve, naproxen, Advilavoid NSAID group of drug for pain Can take Tylenol as needed Always take prednisone after mealfull stomach Prescriptions: New prednisone 20 mg tablet See Rx Instructions .ROUTE .COMPLEX 14 Days Qty: 30 RF: 0 omeprazole 20 mg capsule,delayed release(DR/EC) 20 mg PO DAILY 28 Days Qty: 28 RF: 0 Continued colestipol 1 gram Tablet 1 g PO DAILY RF: 0 Stelara 90 mg/mL Syringe 90 mg subcut [id number] RF: 0 Stand-Alone Forms: Call Back Authorization, [facility] Discharge Orders: Discharge Order (Routine); Ordered 03/02/19 Ordered By: Oumou Vaca Admission Data Admit Date/Time: 02/28/19 08:40 Attending Provider: Oumou Vaca Admit Provider: Oumou Vaca Primary Care Provider: Anoop De La Fuente Other Providers: Marlon Cadet ; Charles Clark ; Danielle Whittaker ; Jose Enrique Quach ; Kalyn Morse ; Rosie Harris ; Leanne Lin ; Jesus Manuel Perales ; Silviano Melendez ; Joanne Arnold ; Mari Kelly ; Sofía Ram ; Nancie Nixon ; Kd Young ; Russ Morse ; Jamila Pepper ; Mary Hamlin ; Helio Leone ; Zane Jimenez ; Jasmyn Morse ; Kirit Lei ; Jesse Clark ; Lakeshia Bean ; Elias Zamora ; Sophia Velarde ; Gerard Guy Jr ; Manuel Vera ; Nancie Schmitz Service: Medical Other DC Date/Time DO NOT enter until pt leaves facility: 03/02/19 14:20
== END 2019-03-02 14:20 | disposition home or self-care (01) | DRG 386 ==
LOC: ED 05:44 → 3W 08:40

== ENCOUNTER 2020-03-25 02:56 | Inpatient (IN) ==
[2020-03-25] MEDS ORDERED: SODIUM CHLORIDE 0.9% 1000ML 1,000 ML IV SCH (03:15)
[2020-03-25] MEDS ORDERED: ONDANSETRON INJ 2 MG/ML 2 ML VIAL IV STA (03:15)
[2020-03-25] MEDS ORDERED: MoRPHine SULFATE 4 MG/ML 1 ML CARP\\VIAL IV STA (03:15)
--- NOTE | 2020-03-25 03:20 | Emergency Department Note ---
History of Present Illness General Chief complaint: Abdominal Pain Stated complaint: ABDOMINAL PAIN DUE TO CROHNS DISEASE History of Present Illness Maximum Pain Intensity: 8 This 44-year-old presents to the ER complaining of abdominal pain with nausea and vomiting who has Crohn's and history of bowel obstructions and follows with Dr. Perales Location: Abdomen Quality: Crampy Severity: Moderate Duration: Past day and a half Timing: Started 1 and 1/2 days ago Context: Pain persisted and patient came in Modifying factors: better with nothing; worse with activity Patient states he has history of small bowel obstructions and symptoms feel similar. He has had a partial colon resection in the past. He has not missed any doses of Stelara. Patient denies chest pain, dyspnea, fevers, flulike illness. Last bowel movement was 2 days ago. Home Medications Home Medications Medication Instructions Recorded Confirmed Type No Known Home Medications 03/25/20 03/25/20 History Allergies Allergy/AdvReac Type Severity Reaction Status Date / Time No Known Allergies Allergy Verified 03/25/20 03:24 Past Med/Surg History Medical History Crohns disease (Chronic) Follows with [facility] (Dr. 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 Beliefs That Will Affect Care: None Current Living Situation: Alone Other Information That Helps Us Care for You: No Feels Safe at Home: Yes Safety Concerns: Feels Safe At This Time Smoking Status: Never smoker Second Hand Exposure: No ; Hx Alcohol Use: Yes Alcohol type: beer Alcohol Intake Frequency: Rarely Hx Substance Use: No Review of Systems A total of 10 systems reviewed and were otherwise negative Physical Exam Vital Signs Vital Signs - 24 hr 03/25/20 03:00 03/25/20 03:56 03/25/20 04:48 Temperature 36.3 C L Temperature Source Oral Pulse Rate 94 H Pulse Rate [Right Finger] 85 Pulse Rhythm [Right Finger] Regular Pulse Strength [Right Finger] Normal Respiratory Rate 20 16 Respiratory Effort / Characteristics Non-Labored Spontaneous Respiratory Depth Normal Normal Blood Pressure 117/89 Blood Pressure [Right Arm] 131/83 Blood Pressure Mean 98 Blood Pressure Mean [Right Arm] 99 Blood Pressure Position [Right Arm] Lying Pulse Oximetry 98 99 98 Oxygen Delivery Method Room Air Room Air Room Air Sepsis Recent Fever Within 48 Hours No Sepsis New/Unexplained Change in Mental Status No Sepsis Action Taken by Nursing No Action Required VITALS: Vitals are noted on the nurse's note and reviewed by myself. Vital signs stable. GENERAL: Pleasant male who appears in pain, in no acute distress, nondiaphoretic, well-developed well-nourished. SKIN: Capillary reflex less than 2 seconds. HEENT: Normocephalic. PERRLA. EOMI. Nares patent. Mucous membranes moist. Neck is supple without nuchal rigidity. HEART: Regular rate and rhythm without murmurs gallops or rubs. LUNGS: Clear to auscultation bilaterally without wheezes, rales or rhonchi. No retractions or accessory muscle use. ABDOMEN: Positive bowel sounds x 4. Normal tympanic percussion. Soft, tender to palpation mid to lower abdomen, without masses or organomegaly. Wise sign negative. No guarding or rebound tenderness. No CVA tenderness MUSCULOSKELETAL: No gross musculoskeletal defects. NEURO: Patient was alert and oriented to person place and time. No focal neurological deficits. Course Administered Medications Acetaminophen (Tylenol) 650 mg PO Q4H PRN PRN Reason: pain/fever Stop: 04/24/20 06:04 Last Admin: 03/25/20 17:16 Dose: 650 mg Documented by: [id number] Heparin Sodium (Porcine) (Heparin Sodium (Porcine)) 5,000 units SQ Q12 NIMCO Stop: 04/24/20 20:59 Last Admin: 03/25/20 20:49 Dose: 5,000 units Documented by: [id number] Cosigned by: [id number] Pantoprazole Sodium 40 mg/ (Syringe) 10 mls @ 5 mls/min IV DAILY@1100 [facility] Stop: 04/24/20 10:59 Last Admin: 03/25/20 10:29 Dose: 5 mls/min Documented by: [id number] Dextrose/Sodium Chloride (D5w And Nss) 1,000 mls @ 125 mls/hr IV .Q8H NIMCO Stop: 04/24/20 06:04 Last Admin: 03/25/20 20:51 Dose: 125 mls/hr Documented by: [id number] Infusion: 03/25/20 20:51 Dose: 125 mls/hr Documented by: [id number] Admin: 03/25/20 14:41 Dose: 125 mls/hr Documented by: [id number] Infusion: 03/25/20 14:23 Dose: 125 mls/hr Documented by: [id number] Admin: 03/25/20 06:23 Dose: 125 mls/hr Documented by: [id number] Methylprednisolone 20 mg/ (Syringe) 0.32 mls @ 1.5 mls/min IV Q8H NIMCO Stop: 04/24/20 13:59 Last Admin: 03/25/20 20:50 Dose: 1.5 mls/min Documented by: [id number] Admin: 03/25/20 14:02 Dose: 1.5 mls/min Documented by: [id number] Discontinued Medications Hydromorphone HCl (Dilaudid) 1 mg IV NOW STA Stop: 03/25/20 05:22 Last Admin: 03/25/20 05:26 Dose: 1 mg Documented by: [id number] Sodium Chloride (Nss 1000ml) 1,000 mls @ 999 mls/hr IV .Q1H1M NIMCO Stop: 03/25/20 04:15 Last Infusion: 03/25/20 05:11 Dose: 0 mls/hr Documented by: [id number] Admin: 03/25/20 03:52 Dose: 999 mls/hr Documented by: [id number] Methylprednisolone 20 mg/ (Syringe) 0.32 mls @ 1.5 mls/min IV NOW STA Stop: 03/25/20 06:08 Last Admin: 03/25/20 06:23 Dose: 1.5 mls/min Documented by: [id number] Ioversol (Optiray 320 100ml) 93 ml IV ONCE PRN PRN Reason: Interaction Checking Stop: 03/29/20 04:05 Last Admin: 03/25/20 04:07 Dose: 1 ml Documented by: [id number] Morphine Sulfate (Morphine Sulfate) 4 mg IV NOW STA Stop: 03/25/20 03:16 Last Admin: 03/25/20 03:52 Dose: 4 mg Documented by: [id number] Ondansetron HCl (Zofran) 4 mg IV NOW STA Stop: 03/25/20 03:16 Last Admin: 03/25/20 03:52 Dose: 4 mg Documented by: [id number] Medical Decision Making Medical Records Attestation: I reviewed the patient's medical records. Home Medications Current Medication List: was personally reviewed by me Laboratory Data Attestation: I reviewed the patient's lab results. Result diagrams: 03/25/20 03:44 03/25/20 03:44 Lab Results 03/25/20 03/25/20 03/25/20 Range/Units 03:44 03:44 03:44 WBC 15.00 H (4.8-10.8) K/uL RBC 5.55 (4.7-6.1) M/uL Hgb 16.4 (14.0-18.0) g/dL POC Hgb (14.0-18.0) g/dl Hct 48.8 (42-52) % POC Hct (42-52) % MCV 87.9 (80-100) fL MCH 29.5 (25-34) pg MCHC 33.6 (32-36) g/dL RDW Std Deviation 44.3 (36.4-46.3) fL RDW Coeff of Nacho 13.7 (11.5-14.5) % Plt Count 344 (130-400) K/uL MPV 9.4 (7.4-10.4) fL Immature Gran % (Auto) 0.3 % Neut % (Auto) 90.3 % Lymph % (Auto) 2.7 % [place] % (Auto) 6.5 % Eos % (Auto) 0.1 % Baso % (Auto) 0.1 % Immature Gran # (Auto) 0.04 H (0.00-0.02) K/uL Neut # (Auto) 13.53 H (1.4-6.5) K/uL Lymph # (Auto) 0.41 L (1.2-3.4) K/uL [place] # (Auto) 0.98 H (0.11-0.59) K/uL Eos # (Auto) 0.02 (0-0.5) K/uL Baso # (Auto) 0.02 (0-0.2) K/uL ESR 30 H (0-14) mm/hr POC Sodium (135-144) mmol/L Sodium 139 (136-145) mmol/L POC Potassium (3.3-5.0) mmol/L Potassium 4.7 (3.5-5.1) mmol/L POC Chloride (101-112) mmol/L Chloride 105 (98-107) mmol/L Carbon Dioxide 28 (21-32) mmol/L POC Total CO2 (24-31) mmol/L Anion Gap 6.0 (3-11) POC Anion Gap (16-25) mmol/L POC BUN (7-18) mg/dl BUN 16 (7-18) mg/dl Creatinine 0.99 (0.6-1.4) mg/dl POC Creatinine (0.6-1.3) mg/dl Est Cr Clr Drug Dosing 106.7 ml/min Est GFR ( Amer) 108.4 Est GFR (Non-Af Amer) 93.6 BUN/Creatinine Ratio 16.0 (10-20) Glucose 128 H (70-99) mg/dl POC Glucose (other) (70-99) mg/dl POC Lactic Acid Dash (0.90-1.70) mmol/L Calcium 9.6 (8.5-10.1) mg/dl POC Ioniz Calcium Mark (1.12-1.32) mmol/l Total Bilirubin 0.8 (0.2-1) mg/dl AST 16 (15-37) U/L ALT 25 (12-78) U/L Alkaline Phosphatase 83 (45-117) U/L C-Reactive Protein 4.48 H (0-0.29) mg/dl Total Protein 8.1 (6.4-8.2) gm/dl Albumin 4.1 (3.4-5.0) gm/dl Globulin 4.0 (2.5-4.0) gm/dl Albumin/Globulin Ratio 1.0 (0.9-2) Lipase 117 (73-393) U/L Urine Color Urine Appearance (Clear) Urine pH (4.5-7.5) Ur Specific [place] (1.000-1.030) Urine Protein (Negative) Urine Glucose (UA) (Negative) Urine Ketones (Negative) Urine Blood (Negative) Urine Nitrite (Negative) Urine Bilirubin (Negative) Urine Urobilinogen (Negative) Ur Leukocyte Esterase (Negative) Urine WBC (Auto) (0-5) /hpf Urine RBC (Auto) (0-4) /hpf U Hyaline Cast (Auto) (0-5) /lpf U Epithel Cells (Auto) (0-5) /lpf Urine Bacteria (Auto) (Negative) 03/25/20 03/25/20 03/25/20 Range/Units 03:53 03:55 04:44 WBC (4.8-10.8) K/uL RBC (4.7-6.1) M/uL Hgb (14.0-18.0) g/dL POC Hgb 17.0 (14.0-18.0) g/dl Hct (42-52) % POC Hct 50 (42-52) % MCV (80-100) fL MCH (25-34) pg MCHC (32-36) g/dL RDW Std Deviation (36.4-46.3) fL RDW Coeff of Nacho (11.5-14.5) % Plt Count (130-400) K/uL MPV (7.4-10.4) fL Immature Gran % (Auto) % Neut % (Auto) % Lymph % (Auto) % [place] % (Auto) % Eos % (Auto) % Baso % (Auto) % Immature Gran # (Auto) (0.00-0.02) K/uL Neut # (Auto) (1.4-6.5) K/uL Lymph # (Auto) (1.2-3.4) K/uL [place] # (Auto) (0.11-0.59) K/uL Eos # (Auto) (0-0.5) K/uL Baso # (Auto) (0-0.2) K/uL ESR (0-14) mm/hr POC Sodium 139 (135-144) mmol/L Sodium (136-145) mmol/L POC Potassium 4.7 (3.3-5.0) mmol/L Potassium (3.5-5.1) mmol/L POC Chloride 103 (101-112) mmol/L Chloride (98-107) mmol/L Carbon Dioxide (21-32) mmol/L POC Total CO2 26 (24-31) mmol/L Anion Gap (3-11) POC Anion Gap 16.0 (16-25) mmol/L POC BUN 16 (7-18) mg/dl BUN (7-18) mg/dl Creatinine (0.6-1.4) mg/dl POC Creatinine 0.8 (0.6-1.3) mg/dl Est Cr Clr Drug Dosing ml/min Est GFR ( Amer) Est GFR (Non-Af Amer) BUN/Creatinine Ratio (10-20) Glucose (70-99) mg/dl POC Glucose (other) 127 H (70-99) mg/dl POC Lactic Acid Dash 1.41 (0.90-1.70) mmol/L Calcium (8.5-10.1) mg/dl POC Ioniz Calcium Mark 1.21 (1.12-1.32) mmol/l Total Bilirubin (0.2-1) mg/dl AST (15-37) U/L ALT (12-78) U/L Alkaline Phosphatase (45-117) U/L C-Reactive Protein (0-0.29) mg/dl Total Protein (6.4-8.2) gm/dl Albumin (3.4-5.0) gm/dl Globulin (2.5-4.0) gm/dl Albumin/Globulin Ratio (0.9-2) Lipase (73-393) U/L Urine Color Dark Yellow Urine Appearance Clear (Clear) Urine pH 7.0 (4.5-7.5) Ur Specific [place] > 1.045 H (1.000-1.030) Urine Protein Trace H (Negative) Urine Glucose (UA) Negative (Negative) Urine Ketones 1+ H (Negative) Urine Blood Negative (Negative) Urine Nitrite Negative (Negative) Urine Bilirubin Negative (Negative) Urine Urobilinogen Negative (Negative) Ur Leukocyte Esterase Negative (Negative) Urine WBC (Auto) 1-5 (0-5) /hpf Urine RBC (Auto) 0-4 (0-4) /hpf U Hyaline Cast (Auto) 5-10 H (0-5) /lpf U Epithel Cells (Auto) 5-10 H (0-5) /lpf Urine Bacteria (Auto) Negative (Negative) Imaging Data Attestation: I personally reviewed and interpreted this imaging study as follows: Blood Pressure Blood Pressure Findings: Normal blood pressure MDM Narrative Prior records/ancillary studies reviewed. Triage Nursing notes reviewed. The patient's history was concerning for abdominal pain. Differential diagnosis: Etiologies such as Crohn's flare, appendicitis, diverticulitis, PUD, biliary pathology, UTI, pancreatitis, obstruction, mesenteric ischemia, aortic pathology, infections, inflammatory bowel disease, renal colic, as well as others were entertained. Physical examination findings: As above. ER treatment provided: An order was placed for continuous cardiac monitoring. The monitor shows a rate of 60-100 with a normal sinus rhythm. IV fluids, morphine, Zofran On reassessment the patient felt better. Diagnostics interpreted by me: The labs revealed leukocytosis, elevated inflammatory markers Negative lactic acid Imaging studies: CT ABDOMEN & PELVIS With Contrast: Small bowel obstruction. Distention up to 4 cm. No free air. No pneumatosis. Transition point in the right upper quadrant at the surgical anastomosis. Radiologist: Jacky Rudd MD Consultation: A consultation was placed with Dr Arabella Leigh and recommends medical admission and surgical consultation. I spoke to surgery, Dr. Morse and meagan rodriguez medical admission and will evaluate the patient in the morning. I spoke to Dr. Cardenas who hospitalist. The case was discussed and diagnostics were reviewed. The patient was evaluated in the ER for further treatment. Exam and history seem consistent with Crohn's flare with a small bowel obstruction. GI, surgery and medicine were consulted. Patient will be admitted. Patient is agreeable. Patient was placed n.p.o. He was hydrated as above. Repeat abdominal exam is unchanged. Lactic is negative. Patient does have a leukocytosis and elevated inflammatory markers. By the evaluation outlined above emergent etiologies such as appendicitis, diverticulitis, PUD, biliary pathology, pancreatitis, mesenteric ischemia, aortic pathology, renal colic, as well as others were deemed relatively unlikely. The pt informed about the findings as listed above. All questions were answered and pleased with the treatment. The chart was completed utilizing [employer] (formerly [employer]) Speech voice recognition software. Grammatical errors, random word insertions, pronoun errors, and incomplete sentences are an occassional consequence of this system due to software limitations, ambient noise, and hardware issues. Any formal questions or concerns about the content, text, or information contained within the body of this dictation should be directly addressed to the physician registered dental assistant for clarification. Impression & Plan Small bowel obstruction, Exacerbation of Crohn's disease Discharge Plan Visit Data *Final* Discharge Date/Time: 03/25/20 05:49 Chief Complaint: Abdominal Pain Stated Complaint: ABDOMINAL PAIN DUE TO CROHNS DISEASE ED Provider: Tiffanie Foss ED Midlevel Provider: Katey Florez Discharge Problem: Small bowel obstruction, Exacerbation of Crohn's disease Patient Disposition: Admitted As Inpatient Condition: Good Discharge Instructions Interventions: ED Discharge Assessment Last Done: 03/25/20 05:49
[2020-03-25 04:01] LABS: Basophils # (auto) 0.02 K/uL (0-0.2); Basophils % (auto) 0.1 %; Eosinophils # (auto) 0.02 K/uL (0-0.5); Eosinophils % (auto) 0.1 %; Hematocrit (blood only) 48.8 % (42-52); Hemoglobin 16.4 g/dL (14.0-18.0); Immature Granulocytes # (auto) 0.04 K/uL (0.00-0.02); Immature Granulocytes % (auto) 0.3 %; Lymphocytes # (auto) 0.41 K/uL (1.2-3.4); Lymphocytes % (auto) 2.7 %; Mean Corpuscular Hemoglobin 29.5 pg (25-34); Mean Corpuscular Hgb Conc 33.6 g/dL (32-36); Mean Corpuscular Volume 87.9 fL (80-100); Mean Platelet Volume 9.4 fL (7.4-10.4); Monocytes # (auto) 0.98 K/uL (0.11-0.59); Monocytes % (auto) 6.5 %; Neutrophils # (auto) 13.53 K/uL (1.4-6.5); Neutrophils % (auto) 90.3 %; Platelet Count 344 K/uL (130-400); RDW Coefficient of Variation 13.7 % (11.5-14.5); RDW Standard Deviation 44.3 fL (36.4-46.3); Red Blood Count 5.55 M/uL (4.7-6.1)
[2020-03-25 04:06] LABS: iSTAT Creatinine 0.8 mg/dl (0.6-1.3); iSTAT Ionized Calcium 1.21 mmol/l (1.12-1.32); iSTAT Potassium 4.7 mmol/L (3.3-5.0)
[2020-03-25] MEDS ORDERED: IOVERSOL 100ml IV PRN (04:06)
[2020-03-25 04:39] LABS: Albumin Level 4.1 gm/dl (3.4-5.0); Calcium 9.6 mg/dl (8.5-10.1); Creatinine Clr Calc Pharmacy 106.7 ml/min; Est GFR (African American) 108.4; Est GFR (Non-African American) 93.6; Potassium 4.7 mmol/L (3.5-5.1)
[2020-03-25 04:42] LABS: Bilirubin,Total 0.8 mg/dl (0.2-1); C Reactive Protein 4.48 mg/dl (0-0.29); Total Protein 8.1 gm/dl (6.4-8.2)
[2020-03-25 04:54] LABS: Appearance Urine Clear (Clear); Bacteria Urine Automated Negative (Negative); Blood Urine Negative (Negative); Color Urine Dark Yellow; Glucose Urine UA Negative (Negative); Ketones Urine 1+ (Negative); Leukocyte Esterase Urine Negative (Negative); Nitrite Urine Negative (Negative); Protein Urine Trace (Negative); RBC Urine Automated 0-4 /hpf (0-4); Specific Gravity Urine > 1.045 (1.000-1.030); Urobilinogen Urine Negative (Negative)
[2020-03-25 05:17] LABS: Bilirubin Urine Negative (Negative); Ictotest Urine Negative (Negative)
[2020-03-25] MEDS ORDERED: HYDROmorphone INJ 1 MG/ML SYRINGE IV STA (05:21)
[2020-03-25] MEDS ORDERED: MoRPHine SULFATE 4 MG/ML 1 ML CARP\\VIAL IV PRN (06:05)
[2020-03-25] MEDS ORDERED: ONDANSETRON INJ 2 MG/ML 2 ML VIAL IV PRN (06:05)
[2020-03-25] MEDS ORDERED: ACETAMINOPHEN 325 MG TAB PO PRN (06:05)
[2020-03-25] MEDS ORDERED: methylPREDNISolone 20 MG in SYRINGE 0 ML IV STA (06:07)
[2020-03-25] MEDS: D5W AND NSS 1,000 ML IV SCH ×3 (06:23→20:51)
--- NOTE | 2020-03-25 06:31 | History and Physical Report ---
DATE OF ADMISSION: 03/25/2020 CHIEF COMPLAINT: Abdominal pain. HISTORY OF PRESENT ILLNESS: This is a 44-year-old male with past medical history significant for Crohn's disease status post ileocolic resection, who presents with abdominal pain. The patient seems to have been diagnosed with Crohn's disease at the age of 19 and has been previously treated with Humira, sulfasalazine, Pentasa, Cimzia. Currently, he is on Stelara. The patient has history of 18 inch ileocolic resection at [facility] in 1996 as per previous records. The patient's last time saw GI was about a year ago. He says he is having abdominal pain since last Sunday, but he thought he we will manage it at home, but yesterday after coming from work he had severe pain in the abdomen. In the middle of the night, he woke up with vomiting of the food material, no blood in the vomitus. Last bowel movement was about 2 days ago. There are no bloody stools or black stools. Having significant abdominal pain, so he came to the ER. During the vomiting, he had sweating and felt hot. He received a dose of morphine in the ER. Currently requesting for some more pain medications. Denies any headache, no blurred visions, no earache, no runny nose. Sore throat from vomiting. No difficulty swallowing, no chest pain, no shortness of breath. Normal bladder movements. No rash. Currently, resting comfortable and hemodynamically stable. ALLERGIES: No known drug allergies. PAST MEDICAL HISTORY: As mentioned above. PAST SURGICAL HISTORY: 18 inch ileum resection for Crohn disease in 1996, colonoscopy with biopsies, EGDs, appendectomy at age 12. MEDICATIONS: The patient is on Stelara 90 mg subcutaneously every 8 weeks. FAMILY HISTORY: Significant for brother had colon cancer in late 20s. SOCIAL HISTORY: Lives with his family. Former smoker, smoked on average 0.5 packs a day for 3 years, quit in 1999. Alcohol rarely. No drug use. REVIEW OF SYSTEMS: As per HPI. Rest of the review of systems negative. PHYSICAL EXAMINATION: GENERAL: The patient is of moderate build, not in acute distress. VITAL SIGNS: Temperature 36.3, pulse 85, respiratory rate 16, blood pressure 131/83, oxygen 98% on room air. HEENT: Pupils equal, round, and reactive to light. NECK: Supple. CARDIOVASCULAR: S1, S2 heard, regular rate and rhythm, no murmur, no gallop. RESPIRATORY SYSTEM: Normal AP diameter. No accessory muscle use. No wheezing, no crackles. ABDOMEN: Soft, bowel sounds present. Diffuse tenderness. Mild guarding. No rigidity, no distention. CENTRAL NERVOUS SYSTEM: Cranial nerves II-XII grossly intact. Nonfocal. EXTREMITIES: No edema, no erythema. LABORATORY DATA: WBC 15, hemoglobin 16.4, hematocrit 48.8, platelets 344. ESR 30. Sodium 139, potassium 4.7, chloride 105, bicarbonate 28, BUN 16, creatinine 0.9, serum glucose 128, calcium 9.6, total bilirubin 0.8, AST 16, ALT 25, alkaline phosphatase 83, lipase 117. Urinalysis +1 ketones. IMAGING DATA: CT of abdomen and pelvis preliminary report shows small-bowel obstruction, distention up to 4 cm. No free air, no pneumatosis. Transition point in the right upper quadrant at the surgical anastomosis. ASSESSMENT AND PLAN: This is a 44-year-old male who presents with possible Crohn's disease flare with small-bowel obstruction. 1. Small-bowel obstruction, history of Crohn's disease, possible Crohn's flare. Had an episode of nausea and vomiting in the middle of the night, but currently nausea is okay. Has abdominal pain. We will place him on n.p.o., IV fluids, IV antiemetics, IV pain meds. Consult surgery for small bowel obstruction. We will give a dose of Solu-Medrol 20 mg and consult GI for further management of his Crohn's disease. Monitor in the medical floor. 2. Gastroesophageal reflux disease. We will place him on IV Protonix. 3. Deep venous thrombosis prophylaxis, sequential compression devices. DISPOSITION: Closely monitor in the medical floor. Level 1 full code. MTDD
--- NOTE | 2020-03-25 07:20 | CT Scan Report ---
ABDOMEN AND PELVIS CT WITH IV CONTRAST CT DOSE: 287.69 mGy.cm HISTORY: Acute mid abdominal pain with history of inflammatory bowel disease and small bowel obstruct ion. Postoperative changes of prior ileocecectomy with ileocolic anastomosis. mid abd pain, crohns, h x sbo TECHNIQUE: Multiaxial CT images of the abdomen and pelvis were performed following the IV administrat ion of 93 cc of Optiray 320, A dose lowering technique was utilized adhering to the principles of AL ETHAN. COMPARISON STUDY: CT abdomen and pelvis 02/28/2019 FINDINGS: Mild dependent subsegmental bibasilar atelectasis. There is no pneumatosis or pneumoperitoneum. No po rtal venous gas identified. The imaged inferior cardiac chambers are unremarkable. Mild right hemidia phragmatic elevation. The spleen, pancreas and adrenal glands are unremarkable. Moderate gallbladder distention. There are 2 hyperdense foci measuring up to 6 mm within the region of the intraluminal ga llbladder fundus suspicious for gallbladder polyposis. No associated wall thickening, inflammation or biliary ductal dilation. Unremarkable appearance of the liver. Patency of the hepatic and portal vei ns. The kidneys are unremarkable. 5 mm hypodensity of the superior pole right kidney is suggestive of a s mall angiomyolipoma. Partially decompressed urinary bladder with mild wall thickening. The prostate i s upper limits of normal in size. There are a few scattered prominent mesenteric lymph nodes which ar e likely reactive. Unremarkable IVC. Nonspecific mild wall thickening of the distal esophagus. Multiple air and fluid-filled dilated loops of small bowel within the lower abdomen and pelvis are noted along with a few stool-filled loops of small bowel. These measure up to approximately 4.1 cm transversely. Postoperative changes of prior il eocecectomy with ileocolic anastomosis. Scattered air-fluid levels are also noted within the large darrian wel. There is circumferential wall thickening and hyperemia involving a loop of distal ileum just pro ximal to the anastomosis measuring up to at least 10.8 cm in length. There is angular luminal narrowi ng also present involving this loop of bowel which was also inflamed on the comparison study. This is a focal transition point with dilated bowel seen proximally. Trace free fluid with interloop edema i s also noted surrounding this loop of bowel. Additionally, there is a 5.0 cm loop of bowel wall thick ening with luminal narrowing on image 217 of series 3 with an additional short segment of wall thicke shaniqua and hyperemia seen involving a loop of small bowel image 3 1 series 3. No fistula, sinus tract o r drainable fluid collection identified. Prior appendectomy. Soft tissues are unremarkable. Bones appear intact. Multiple scattered subcentimeter sclerotic foci o f the pelvis and proximal femora are suggestive of bone islands. Mild dextroscoliosis of the lumbar s pine. Moderate disc space narrowing with posterior disc osteophyte complex at L5-S1. IMPRESSION: 1. Postoperative changes of prior ileocecectomy with ileocolic anastomosis. There are findings compat ible with active inflammatory bowel disease with several loops of bowel wall thickening demonstrating mucosal hyperemia with surrounding inflammatory stranding, interloop edema and trace reactive abdomi nal pelvic ascites. 2. 10 cm segment of active inflammation involves the distal ileum just proximal to the anastomotic si te (similar findings were also noted on the comparison exam). Luminal narrowing involving this loop o f bowel is suggestive of a stricture which results in at least a moderate grade small bowel obstructi on. 3. No evidence of fistula, sinus tract or drainable fluid collection. 4. Scattered prominent mesenteric lymph nodes are likely reactive. 5. Gallbladder distention with probable gallbladder polyposis. 6. Nonspecific distal esophageal wall thickening. Correlate clinically to exclude esophagitis. ACT 112: Negative or not required by law. The above report was generated using voice recognition software. It may contain grammatical, syntax o r spelling errors. Electronically signed by: Maximiliano Alanis M.D. 03/25/2020 7:18 AM
--- NOTE | 2020-03-25 08:55 | Gastrointestinal Consultation ---
Date of Consultation March 25, 2020 Assessment & Plan (1) Exacerbation of Crohn's disease: 57 year old male w/ fistulizing Crohn's disease s/p ileocolonic resection in 1996 on Stelara who presents to the ED for abdominal pain, n/v and inability to pass gas/stool in [address] w/ postoperative changes of prior ileocecectomy with ileocolic anastomosis, with several loops of bowel wall thickening demonstrating mucosal hyperemia with surrounding inflammatory stranding, interloop edema and trace reactive abdominal pelvic ascites and a 10 cm segment of active inflammation involves the distal ileum just proximal to the anastomotic site w/ luminal narrowing and resultant moderate grade small bowel obstruction. No current evidence of fistula, sinus tract or drainable fluid collection. SBO - Consult general surgery - Daily KUB - No current indication for NG tube placement - He is agreeable to NG if nausea/vomiting return - NPO for bowel rest - Would recommend low fiber once diet is advanced past clears - Antiemetics PRN - Analgesia PRN but please try to limit narcotic analgesia can use Bentyl 10 mg TID PRN Suspected IBD flare - Please check stool culture, stool for c.diff - Would continue IV methylprep 20 q8h - Hold empiric ABX for now - Consider MRE based off of clinical improvement - O/P colonoscopy timing to be determined Gallbladder polyp/distention on CT - moderate gallbladder distention w/ hyperdense foci measuring up to 6 mm within the region of the intraluminal gallbladder fundus suspicious for gallbladder polyposis - appreciate general surgery recommendation - can have OP ABD US to ensure stability in 6 months Esophageal wall thickening on CT - Pantoprazole 40 mg daily - OP EGD at time of colonoscopy Will follow. Thank you for allowing us to participate in the care of this patient. Please call with any acute changes, questions or concerns. Please see addendum below with additional recommendation from my supervising physician. Present on Admission?: Yes (2) Small bowel obstruction: Present on Admission?: Yes Supervising Physician Co-Signing Physician Notes I have personally seen and examined the patient with ZEESHAN Rincon. Her note reflects my exam and findings. I agree with her impression and plan. Cont. IV steroids and keep NPO for now. May advance to liquids once symptoms improve. Silviano Melendez M.D. History of Present Illness Reason for Consultation: gonzalo SBO Requesting Physician: Zuri Attending Physician: Ileana Keating MD History of Present Illness 44 year old male w/ fistulizing Crohn's disease s/p ileocolonic resection in 1996 who presented to the ED today with RLQ abdominal pain and abd distention x 24 hours, inability to pass stool/gas Pt was seen and evaluated, chart reviewed. Notes he was in his typical state of health from a GI standpoint up until about 1 week ago. Suggest at this time was when his abd pain started. This was generalized x 4 quadrants. He notes the pain persisted and worsened over the past 48 hours and notes nausea/vomiting at this time. Food/bile. No coffee ground emesis or hematemesis. Suggests last BM and gas was priro to arrival abou 24 hours ago. No fever, chills, CP, SOB. Denies sick contacts CD history, diagnosed age 19. Failed treatment w/ Imuran, sulfasalazine, Pentasa, Humira, Cimzia. Started on Stelara 2016 - suggests compliance with this and denies any missed doses. Hx ileocolonic resection otherwise no other abd surgeries CT 2020: Postoperative changes of prior ileocecectomy with ileocolic anastomosis. There are findings compatible with active inflammatory bowel disease with several loops of bowel wall thickening demonstrating mucosal hyperemia with surrounding inflammatory stranding, interloop edema and trace reactive abdominal pelvic ascites. 10 cm segment of active inflammation involves the distal ileum just proximal to the anastomotic site (similar findings were also noted on the comparison exam). Luminal narrowing involving this loop of bowel is suggestive of a stricture which results in at least a moderate grade small bowel obstruction. No evidence of fistula, sinus tract or drainable fluid collection. Scattered prominent mesenteric lymph nodes are likely reactive.Gallbladder distention with probable gallbladder polyposis. Nonspecific distal esophageal wall thickening. Correlate clinically to exclude esophagitis. CT 2019: Again seen are postoperative changes from ileocecectomy with ileocolic anastomosis. There is a short segment of thick-walled and hyperemic small bowel just proximal to the anastomosis. This extends approximately 5 cm in length, an is consistent with a nonspecific enteritis. Active Crohn's disease could have this appearance and correlation with the patient's clinical findings and medical history will be required.The small bowel loops proximal to the inflamed loops are distended, fluid-filled, and fecalized. This is consistent with a small bowel obstruction, likely related to the focal enteritis. Underlying stricture would be impossible to exclude. Trace interloop fluid is identified in the right lower quadrant. There is no intraperitoneal free air, pneumatosis intestinalis, or portal venous gas. Colonoscopy 2018:Quiescent Crohn's disease. Inflammation was found.,improved compared to previous examinations. Biopsied. Patent functional end-to-end ileo- colonic anastomosis. biopsies negative for dysplasia. EGD 2018: No endoscopic esophageal abnormality to explain patient'sdysphagia. Esophagus dilated. Dilated.Z-line regular, 43 cm from the incisors. Biopsied.Normal stomach. Biopsied.Normal examined duodenum. Allergies Allergy/AdvReac Type Severity Reaction Status Date / Time No Known Allergies Allergy Verified 03/25/20 03:24 Home Medications Home Medications Medication Instructions Recorded Confirmed Type No Known Home Medications 03/25/20 03/25/20 History Patient History Medical History Crohns disease (Chronic) Follows with [facility] (Dr. Perales) - maintained on [facility] Surgical History History of appendectomy (Resolved) History of bowel resection (Resolved) 18 inches ileocolonic resection - 1996 (Rule) Social History Preferred Language: Arabic Communication Ability: Effective Customer Solutions Coordinator Required: No Beliefs That Will Affect Care: None Current Living Situation: Alone Other Information That Helps Us Care for You: No Feels Safe at Home: Yes Safety Concerns: Feels Safe At This Time Smoking Status: Never smoker Second Hand Exposure: No ; Hx Alcohol Use: Yes Alcohol type: beer Alcohol Intake Frequency: Rarely Hx Substance Use: No Review of Systems Constitutional: no fever, no chills and no fatigue Respiratory: no cough, no dyspnea and no dyspnea on exertion Cardiovascular: no chest pain, no dyspnea and no dyspnea on exertion Gastrointestinal: + abdominal pain, + bloating, + nausea, + vomiting and + change in stools; no coffee ground emesis, no blood in stools and no melena Physical Exam Constitutional: well nourished; no acute distress and not ill appearing Neck: trachea midline Respiratory: normal respiratory effort Gastrointestinal (Abdomen): Inspection/Auscultation: + abdomen distended Percussion/Palpation: + abdomen tender and abdomen soft; no guarding Skin: no rashes, warm and dry Results & Data ([facility]) Vital Signs (Past 12 Hours) Vital Signs Temp Pulse Pulse Resp BP BP Pulse Ox 03/25/20 07:21 36.7 C 84 16 112/72 97 03/25/20 06:06 36.9 C 81 16 122/74 98 03/25/20 05:49 87 16 127/86 98 03/25/20 04:48 85 16 131/83 98 03/25/20 03:56 99 03/25/20 03:00 36.3 C L 94 H 20 117/89 98 Laboratory Results 03/25/20 03/25/20 03/25/20 Range/Units 04:44 03:55 03:53 WBC (4.8-10.8) K/uL RBC (4.7-6.1) M/uL Hgb (14.0-18.0) g/dL POC Hgb 17.0 (14.0-18.0) g/dl Hct (42-52) % POC Hct 50 (42-52) % MCV (80-100) fL MCH (25-34) pg MCHC (32-36) g/dL RDW Std Deviation (36.4-46.3) fL RDW Coeff of Nacho (11.5-14.5) % Plt Count (130-400) K/uL MPV (7.4-10.4) fL Immature Gran % (Auto) % Neut % (Auto) % Lymph % (Auto) % [place] % (Auto) % Eos % (Auto) % Baso % (Auto) % Immature Gran # (Auto) (0.00-0.02) K/uL Neut # (Auto) (1.4-6.5) K/uL Lymph # (Auto) (1.2-3.4) K/uL [place] # (Auto) (0.11-0.59) K/uL Eos # (Auto) (0-0.5) K/uL Baso # (Auto) (0-0.2) K/uL ESR (0-14) mm/hr POC Sodium 139 (135-144) mmol/L Sodium (136-145) mmol/L POC Potassium 4.7 (3.3-5.0) mmol/L Potassium (3.5-5.1) mmol/L POC Chloride 103 (101-112) mmol/L Chloride (98-107) mmol/L Carbon Dioxide (21-32) mmol/L POC Total CO2 26 (24-31) mmol/L Anion Gap (3-11) POC Anion Gap 16.0 (16-25) mmol/L POC BUN 16 (7-18) mg/dl BUN (7-18) mg/dl Creatinine (0.6-1.4) mg/dl POC Creatinine 0.8 (0.6-1.3) mg/dl Est Cr Clr Drug Dosing ml/min Est GFR ( Amer) Est GFR (Non-Af Amer) BUN/Creatinine Ratio (10-20) Glucose (70-99) mg/dl POC Glucose (other) 127 H (70-99) mg/dl POC Lactic Acid Dash 1.41 (0.90-1.70) mmol/L Calcium (8.5-10.1) mg/dl POC Ioniz Calcium Mark 1.21 (1.12-1.32) mmol/l Total Bilirubin (0.2-1) mg/dl AST (15-37) U/L ALT (12-78) U/L Alkaline Phosphatase (45-117) U/L C-Reactive Protein (0-0.29) mg/dl Total Protein (6.4-8.2) gm/dl Albumin (3.4-5.0) gm/dl Globulin (2.5-4.0) gm/dl Albumin/Globulin Ratio (0.9-2) Lipase (73-393) U/L Urine Color Dark Yellow Urine Appearance Clear (Clear) Urine pH 7.0 (4.5-7.5) Ur Specific Newcomb > 1.045 H (1.000-1.030) Urine Protein Trace H (Negative) Urine Glucose (UA) Negative (Negative) Urine Ketones 1+ H (Negative) Urine Blood Negative (Negative) Urine Nitrite Negative (Negative) Urine Bilirubin Negative (Negative) Urine Urobilinogen Negative (Negative) Ur Leukocyte Esterase Negative (Negative) Urine WBC (Auto) 1-5 (0-5) /hpf Urine RBC (Auto) 0-4 (0-4) /hpf U Hyaline Cast (Auto) 5-10 H (0-5) /lpf U Epithel Cells (Auto) 5-10 H (0-5) /lpf Urine Bacteria (Auto) Negative (Negative) 03/25/20 03/25/20 03/25/20 Range/Units 03:44 03:44 03:44 WBC 15.00 H (4.8-10.8) K/uL RBC 5.55 (4.7-6.1) M/uL Hgb 16.4 (14.0-18.0) g/dL POC Hgb (14.0-18.0) g/dl Hct 48.8 (42-52) % POC Hct (42-52) % MCV 87.9 (80-100) fL MCH 29.5 (25-34) pg MCHC 33.6 (32-36) g/dL RDW Std Deviation 44.3 (36.4-46.3) fL RDW Coeff of Nacho 13.7 (11.5-14.5) % Plt Count 344 (130-400) K/uL MPV 9.4 (7.4-10.4) fL Immature Gran % (Auto) 0.3 % Neut % (Auto) 90.3 % Lymph % (Auto) 2.7 % [place] % (Auto) 6.5 % Eos % (Auto) 0.1 % Baso % (Auto) 0.1 % Immature Gran # (Auto) 0.04 H (0.00-0.02) K/uL Neut # (Auto) 13.53 H (1.4-6.5) K/uL Lymph # (Auto) 0.41 L (1.2-3.4) K/uL [place] # (Auto) 0.98 H (0.11-0.59) K/uL Eos # (Auto) 0.02 (0-0.5) K/uL Baso # (Auto) 0.02 (0-0.2) K/uL ESR 30 H (0-14) mm/hr POC Sodium (135-144) mmol/L Sodium 139 (136-145) mmol/L POC Potassium (3.3-5.0) mmol/L Potassium 4.7 (3.5-5.1) mmol/L POC Chloride (101-112) mmol/L Chloride 105 (98-107) mmol/L Carbon Dioxide 28 (21-32) mmol/L POC Total CO2 (24-31) mmol/L Anion Gap 6.0 (3-11) POC Anion Gap (16-25) mmol/L POC BUN (7-18) mg/dl BUN 16 (7-18) mg/dl Creatinine 0.99 (0.6-1.4) mg/dl POC Creatinine (0.6-1.3) mg/dl Est Cr Clr Drug Dosing 106.7 ml/min Est GFR ( Amer) 108.4 Est GFR (Non-Af Amer) 93.6 BUN/Creatinine Ratio 16.0 (10-20) Glucose 128 H (70-99) mg/dl POC Glucose (other) (70-99) mg/dl POC Lactic Acid Dash (0.90-1.70) mmol/L Calcium 9.6 (8.5-10.1) mg/dl POC Ioniz Calcium Mark (1.12-1.32) mmol/l Total Bilirubin 0.8 (0.2-1) mg/dl AST 16 (15-37) U/L ALT 25 (12-78) U/L Alkaline Phosphatase 83 (45-117) U/L C-Reactive Protein 4.48 H (0-0.29) mg/dl Total Protein 8.1 (6.4-8.2) gm/dl Albumin 4.1 (3.4-5.0) gm/dl Globulin 4.0 (2.5-4.0) gm/dl Albumin/Globulin Ratio 1.0 (0.9-2) Lipase 117 (73-393) U/L Urine Color Urine Appearance (Clear) Urine pH (4.5-7.5) Ur Specific [place]comb (1.000-1.030) Urine Protein (Negative) Urine Glucose (UA) (Negative) Urine Ketones (Negative) Urine Blood (Negative) Urine Nitrite (Negative) Urine Bilirubin (Negative) Urine Urobilinogen (Negative) Ur Leukocyte Esterase (Negative) Urine WBC (Auto) (0-5) /hpf Urine RBC (Auto) (0-4) /hpf U Hyaline Cast (Auto) (0-5) /lpf U Epithel Cells (Auto) (0-5) /lpf Urine Bacteria (Auto) (Negative)
[2020-03-25] MEDS ORDERED: DICYCLOMINE HCL 10 MG CAP PO PRN (09:48)
[2020-03-25] MEDS: PANTOprazole 40 MG in SYRINGE 0 ML IV SCH (10:29)
--- NOTE | 2020-03-25 11:52 | Surgery Consultation ---
Date of Consultation March 25, 2020 Assessment & Plan (1) Exacerbation of Crohn's disease: 44 year-old male with history of fistulizing Crohn's disease diagnosed at 19 years of age and history of ileocolonic resection in 1996 who presented to ED early this morning with abdominal pain and distention with inability to pas flatus or stool for about [address] scan showing active inflammatory bowel disease with small bowel wall thickening, interloop edema, and narrowing of the small bowel resulting in moderate SBO (similar to prior study in 02/2019). Abdomen is soft, nondistended, tender in RLQ without guarding or peritonitis on examination today. Leukocytosis of 15K. CRP elevated at 4.48. Plan: No acute surgical intervention required at this time. Recommend conservative management as established/recommended by GI. NPO for bowel rest, IV fluids, IV methylprednisone and outpatient colonoscopy follow-up. Encourage OOB to chair and ambulation NGT if vomiting is recommended will follow (2) Small bowel obstruction: secondary to exacerbation of Crohn's disease plan as above (3) Gallbladder polyp: CT scan showing possible polyposis of gallbladder, polyps measuring up to 6 mm. asymptomatic would consider repeating gallbladder US in 6 months to check stability of polyp size. Dr. Vera has seen and examined patient, agrees with above. History of Present Illness Reason for Consultation: SBO Exacerbation of Crohn's disease Requesting Physician: MD Theresa Attending Physician: Ileana Keating MD History of Present Illness Dejuan is a 44 year-old male who presented to ED today with complaint of abdominal pain and distention that began 24 hours ago with inability to pass gas or stool. Has history of fistulizing Crohn's disease s/p ileocolonic resection in 1996 at [facility] and multiple failed treatments since age of 19 at diagnosis. Follows with [facility] and is currently on Stelera treatment injections every 8 weeks. Has history of previous SBO secondary to Crohn's flare, last admission was in February of last year in which his SBO was treated conservatively. No other abdominal surgeries. Dejuan states he is feeling much better since admission. Pain mostly on the right lower side. No nausea or vomiting. Was given IV methylprednisone on admission. Allergies Allergy/AdvReac Type Severity Reaction Status Date / Time No Known Allergies Allergy Verified 03/25/20 03:24 Home Medications Home Medications Medication Instructions Recorded Confirmed Type No Known Home Medications 03/25/20 03/25/20 History Patient History Medical History Crohns disease (Chronic) Follows with [facility] (Dr. 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 Beliefs That Will Affect Care: None Current Living Situation: Alone Other Information That Helps Us Care for You: No Feels Safe at Home: Yes Safety Concerns: Feels Safe At This Time Smoking Status: Never smoker Second Hand Exposure: No ; Hx Alcohol Use: Yes Alcohol type: beer Alcohol Intake Frequency: Rarely Hx Substance Use: No Physical Exam Constitutional: WD/WN, vitals as above not ill appearing Respiratory: normal respiratory effort Gastrointestinal (Abdomen): Inspection/Auscultation: abdomen normal to inspection and + abdominal surgical scar (midline laparotomy scar); abdomen not distended Percussion/Palpation: + abdomen tender (RLQ) and abdomen soft; no guarding and abdomen not rigid Skin: no rashes, warm and dry Psychiatric: A+Ox3, euthymic affect Results & Data Vital Signs (Past 12 Hours) Vital Signs Temp Pulse Pulse Resp BP BP Pulse Ox 03/25/20 07:21 36.7 C 84 16 112/72 97 03/25/20 06:06 36.9 C 81 16 122/74 98 03/25/20 05:49 87 16 127/86 98 03/25/20 04:48 85 16 131/83 98 03/25/20 03:56 99 03/25/20 03:00 36.3 C L 94 H 20 117/89 98 Laboratory Results 03/25/20 03/25/20 03/25/20 Range/Units 04:44 03:55 03:53 WBC (4.8-10.8) K/uL RBC (4.7-6.1) M/uL Hgb (14.0-18.0) g/dL POC Hgb 17.0 (14.0-18.0) g/dl Hct (42-52) % POC Hct 50 (42-52) % MCV (80-100) fL MCH (25-34) pg MCHC (32-36) g/dL RDW Std Deviation (36.4-46.3) fL RDW Coeff of Nacho (11.5-14.5) % Plt Count (130-400) K/uL MPV (7.4-10.4) fL Immature Gran % (Auto) % Neut % (Auto) % Lymph % (Auto) % [place] % (Auto) % Eos % (Auto) % Baso % (Auto) % Immature Gran # (Auto) (0.00-0.02) K/uL Neut # (Auto) (1.4-6.5) K/uL Lymph # (Auto) (1.2-3.4) K/uL [place] # (Auto) (0.11-0.59) K/uL Eos # (Auto) (0-0.5) K/uL Baso # (Auto) (0-0.2) K/uL ESR (0-14) mm/hr POC Sodium 139 (135-144) mmol/L Sodium (136-145) mmol/L POC Potassium 4.7 (3.3-5.0) mmol/L Potassium (3.5-5.1) mmol/L POC Chloride 103 (101-112) mmol/L Chloride (98-107) mmol/L Carbon Dioxide (21-32) mmol/L POC Total CO2 26 (24-31) mmol/L Anion Gap (3-11) POC Anion Gap 16.0 (16-25) mmol/L POC BUN 16 (7-18) mg/dl BUN (7-18) mg/dl Creatinine (0.6-1.4) mg/dl POC Creatinine 0.8 (0.6-1.3) mg/dl Est Cr Clr Drug Dosing ml/min Est GFR ( Amer) Est GFR (Non-Af Amer) BUN/Creatinine Ratio (10-20) Glucose (70-99) mg/dl POC Glucose (other) 127 H (70-99) mg/dl POC Lactic Acid Dash 1.41 (0.90-1.70) mmol/L Calcium (8.5-10.1) mg/dl POC Ioniz Calcium Mark 1.21 (1.12-1.32) mmol/l Total Bilirubin (0.2-1) mg/dl AST (15-37) U/L ALT (12-78) U/L Alkaline Phosphatase (45-117) U/L C-Reactive Protein (0-0.29) mg/dl Total Protein (6.4-8.2) gm/dl Albumin (3.4-5.0) gm/dl Globulin (2.5-4.0) gm/dl Albumin/Globulin Ratio (0.9-2) Lipase (73-393) U/L Urine Color Dark Yellow Urine Appearance Clear (Clear) Urine pH 7.0 (4.5-7.5) Ur Specific [place] > 1.045 H (1.000-1.030) Urine Protein Trace H (Negative) Urine Glucose (UA) Negative (Negative) Urine Ketones 1+ H (Negative) Urine Blood Negative (Negative) Urine Nitrite Negative (Negative) Urine Bilirubin Negative (Negative) Urine Urobilinogen Negative (Negative) Ur Leukocyte Esterase Negative (Negative) Urine WBC (Auto) 1-5 (0-5) /hpf Urine RBC (Auto) 0-4 (0-4) /hpf U Hyaline Cast (Auto) 5-10 H (0-5) /lpf U Epithel Cells (Auto) 5-10 H (0-5) /lpf Urine Bacteria (Auto) Negative (Negative) 03/25/20 03/25/20 03/25/20 Range/Units 03:44 03:44 03:44 WBC 15.00 H (4.8-10.8) K/uL RBC 5.55 (4.7-6.1) M/uL Hgb 16.4 (14.0-18.0) g/dL POC Hgb (14.0-18.0) g/dl Hct 48.8 (42-52) % POC Hct (42-52) % MCV 87.9 (80-100) fL MCH 29.5 (25-34) pg MCHC 33.6 (32-36) g/dL RDW Std Deviation 44.3 (36.4-46.3) fL RDW Coeff of Nacho 13.7 (11.5-14.5) % Plt Count 344 (130-400) K/uL MPV 9.4 (7.4-10.4) fL Immature Gran % (Auto) 0.3 % Neut % (Auto) 90.3 % Lymph % (Auto) 2.7 % [place] % (Auto) 6.5 % Eos % (Auto) 0.1 % Baso % (Auto) 0.1 % Immature Gran # (Auto) 0.04 H (0.00-0.02) K/uL Neut # (Auto) 13.53 H (1.4-6.5) K/uL Lymph # (Auto) 0.41 L (1.2-3.4) K/uL [place] # (Auto) 0.98 H (0.11-0.59) K/uL Eos # (Auto) 0.02 (0-0.5) K/uL Baso # (Auto) 0.02 (0-0.2) K/uL ESR 30 H (0-14) mm/hr POC Sodium (135-144) mmol/L Sodium 139 (136-145) mmol/L POC Potassium (3.3-5.0) mmol/L Potassium 4.7 (3.5-5.1) mmol/L POC Chloride (101-112) mmol/L Chloride 105 (98-107) mmol/L Carbon Dioxide 28 (21-32) mmol/L POC Total CO2 (24-31) mmol/L Anion Gap 6.0 (3-11) POC Anion Gap (16-25) mmol/L POC BUN (7-18) mg/dl BUN 16 (7-18) mg/dl Creatinine 0.99 (0.6-1.4) mg/dl POC Creatinine (0.6-1.3) mg/dl Est Cr Clr Drug Dosing 106.7 ml/min Est GFR ( Amer) 108.4 Est GFR (Non-Af Amer) 93.6 BUN/Creatinine Ratio 16.0 (10-20) Glucose 128 H (70-99) mg/dl POC Glucose (other) (70-99) mg/dl POC Lactic Acid Dash (0.90-1.70) mmol/L Calcium 9.6 (8.5-10.1) mg/dl POC Ioniz Calcium Mark (1.12-1.32) mmol/l Total Bilirubin 0.8 (0.2-1) mg/dl AST 16 (15-37) U/L ALT 25 (12-78) U/L Alkaline Phosphatase 83 (45-117) U/L C-Reactive Protein 4.48 H (0-0.29) mg/dl Total Protein 8.1 (6.4-8.2) gm/dl Albumin 4.1 (3.4-5.0) gm/dl Globulin 4.0 (2.5-4.0) gm/dl Albumin/Globulin Ratio 1.0 (0.9-2) Lipase 117 (73-393) U/L Urine Color Urine Appearance (Clear) Urine pH (4.5-7.5) Ur Specific [place] (1.000-1.030) Urine Protein (Negative) Urine Glucose (UA) (Negative) Urine Ketones (Negative) Urine Blood (Negative) Urine Nitrite (Negative) Urine Bilirubin (Negative) Urine Urobilinogen (Negative) Ur Leukocyte Esterase (Negative) Urine WBC (Auto) (0-5) /hpf Urine RBC (Auto) (0-4) /hpf U Hyaline Cast (Auto) (0-5) /lpf U Epithel Cells (Auto) (0-5) /lpf Urine Bacteria (Auto) (Negative) Diagnostic Findings ABDOMEN AND PELVIS CT WITH IV CONTRAST CT DOSE: 287.69 mGy.cm HISTORY: Acute mid abdominal pain with history of inflammatory bowel disease and small bowel obstruction. Postoperative changes of prior ileocecectomy with ileocolic anastomosis. mid abd pain, crohns, hx sbo TECHNIQUE: Multiaxial CT images of the abdomen and pelvis were performed following the IV administration of 93 cc of Optiray 320, A dose lowering technique was utilized adhering to the principles of ALARA. COMPARISON STUDY: CT abdomen and pelvis 02/28/2019 FINDINGS: Mild dependent subsegmental bibasilar atelectasis. There is no pneumatosis or pneumoperitoneum. No portal venous gas identified. The imaged inferior cardiac chambers are unremarkable. Mild right hemidiaphragmatic elevation. The spleen, pancreas and adrenal glands are unremarkable. Moderate gallbladder distention. There are 2 hyperdense foci measuring up to 6 mm within the region of the intraluminal gallbladder fundus suspicious for gallbladder polyposis. No associated wall thickening, inflammation or biliary ductal dilation. Unremarkable appearance of the liver. Patency of the hepatic and portal veins. The kidneys are unremarkable. 5 mm hypodensity of the superior pole right kidney is suggestive of a small angiomyolipoma. Partially decompressed urinary bladder with mild wall thickening. The prostate is upper limits of normal in size. There are a few scattered prominent mesenteric lymph nodes which are likely reactive. Unremarkable IVC. Nonspecific mild wall thickening of the distal esophagus. Multiple air and fluid-filled dilated loops of small bowel within the lower abdomen and pelvis are noted along with a few stool-filled loops of small bowel. These measure up to approximately 4.1 cm transversely. Postoperative changes of prior ileocecectomy with ileocolic anastomosis. Scattered air-fluid levels are also noted within the large bowel. There is circumferential wall thickening and hyperemia involving a loop of distal ileum just proximal to the anastomosis measuring up to at least 10.8 cm in length. There is angular luminal narrowing also present involving this loop of bowel which was also inflamed on the comparison study. This is a focal transition point with dilated bowel seen proximally. Trace free fluid with interloop edema is also noted surrounding this loop of bowel. Additionally, there is a 5.0 cm loop of bowel wall thickening with luminal narrowing on image 217 of series 3 with an additional short segment of wall thickening and hyperemia seen involving a loop of small bowel image 3 1 series 3. No fistula, sinus tract or drainable fluid collection identified. Prior appendectomy. Soft tissues are unremarkable. Bones appear intact. Multiple scattered subcentimeter sclerotic foci of the pelvis and proximal femora are suggestive of bone islands. Mild dextroscoliosis of the lumbar spine. Moderate disc space narrowing with posterior disc osteophyte complex at L5-S1. IMPRESSION: 1. Postoperative changes of prior ileocecectomy with ileocolic anastomosis. T here are findings compatible with active inflammatory bowel disease with several loops of bowel wall thickening demonstrating mucosal hyperemia with surrounding inflammatory stranding, interloop edema and trace reactive abdominal pelvic ascites. 2. 10 cm segment of active inflammation involves the distal ileum just proximal to the anastomotic site (similar findings were also noted on the comparison exam). Luminal narrowing involving this loop of bowel is suggestive of a stricture which results in at least a moderate grade small bowel obstruction. 3. No evidence of fistula, sinus tract or drainable fluid collection. 4. Scattered prominent mesenteric lymph nodes are likely reactive. 5. Gallbladder distention with probable gallbladder polyposis. 6. Nonspecific distal esophageal wall thickening. Correlate clinically to exclude esophagitis.
[2020-03-25] MEDS: methylPREDNISolone 20 MG in SYRINGE 0 ML IV SCH ×2 (14:02→20:50)
--- NOTE | 2020-03-25 14:37 | Hospitalist Progress Note ---
Date of Service March 25, 2020 Assessment & Plan (1) Exacerbation of Crohn's disease: Admitted with abdominal pain with minimal distention and constipation for 3 days History of Crohn's disease and the CAT scan did show ileitis with SBO Likely secondary to exacerbation of Crohn's Appreciate GI input and recommendation Methylprednisone 20 mg IV every 8 hourly and Bentyl N.p.o. for now (2) Small bowel obstruction: No overt obstructive symptoms Does not require any NG tube Appreciate surgery input and recommendation Conservative management N.p.o., IV fluid and pain medications (3) Gallbladder polyp: No acute cholecystitis Will have an ultrasound in 6 months DVT prophylax Subcu hep Admission and Anticipated Discharge Date Admission Date: March 25, 2020 Subjective The patient was seen and examined in the medical floor He was admitted with Ann-Marie acute exacerbation of Crohn's disease with possible small bowel obstruction Has been feeling a little better this morning Denies any abdominal distention, any nausea and or vomiting Bowel has not moved yet Review of Systems Review of Systems: All systems reviewed and are unremarkable except as noted below Gastrointestinal: + abdominal pain, + bloating and + nausea; no vomiting Physical Exam Physical Exam: Lying in bed comfortably Constitutional: well developed, well nourished and + ill appearing; no acute distress Eyes: PERRL, conjunctivae normal, anicteric sclerae ENMT: external ear and nose normal, oropharynx normal Neck: trachea midline, no thyromegaly Respiratory: normal respiratory effort; no respiratory distress Auscultation: lungs clear to auscultation bilaterally Cardiovascular: Rate/Rhythm: regular rate and regular rhythm Heart Sounds: no murmur Gastrointestinal (Abdomen): Inspection/Auscultation: abdomen normal to inspection Percussion/Palpation: + abdomen tender (Right lower quadrant and hypogastrium) and abdomen soft Musculoskeletal: No acute arthritis in any joint Lymphatic: no cervical or axillary lymphadenopathy Results & Data Results & Data ([facility]) Vital Signs (Past 12 Hours) Vital Signs Temp Pulse Pulse Resp BP BP Pulse Ox 03/25/20 07:21 36.7 C 84 16 112/72 97 03/25/20 06:06 36.9 C 81 16 122/74 98 03/25/20 05:49 87 16 127/86 98 03/25/20 04:48 85 16 131/83 98 03/25/20 03:56 99 03/25/20 03:00 36.3 C L 94 H 20 117/89 98 Laboratory Results Short CBC 03/25/20 Range/Units 03:44 WBC 15.00 H (4.8-10.8) K/uL Hgb 16.4 (14.0-18.0) g/dL Hct 48.8 (42-52) % Plt Count 344 (130-400) K/uL BMP 03/25/20 03:44 Sodium 139 Potassium 4.7 Chloride 105 Carbon Dioxide 28 BUN 16 Creatinine 0.99 Glucose 128 H Calcium 9.6 Liver Function 03/25/20 Range/Units 03:44 Total Bilirubin 0.8 (0.2-1) mg/dl AST 16 (15-37) U/L ALT 25 (12-78) U/L Alkaline Phosphatase 83 (45-117) U/L Albumin 4.1 (3.4-5.0) gm/dl Urine 03/25/20 Range/Units 04:44 Urine Color Dark Yellow Urine Appearance Clear (Clear) Urine pH 7.0 (4.5-7.5) Ur Specific [place] > 1.045 H (1.000-1.030) Urine Protein Trace H (Negative) Urine Glucose (UA) Negative (Negative) Medications Administered Current Inpatient Medications Acetaminophen (Tylenol) 650 mg PO Q4H PRN PRN Reason: pain/fever Stop: 04/24/20 06:04 Dicyclomine HCl (Bentyl) 10 mg PO TID PRN PRN Reason: Pain Stop: 04/24/20 13:59 Pantoprazole Sodium 40 mg/ (Syringe) 10 mls @ 5 mls/min IV DAILY@1100 [facility] Stop: 04/24/20 10:59 Last Admin: 03/25/20 10:29 Dose: 5 mls/min Documented by: Dextrose/Sodium Chloride (D5w And Nss) 1,000 mls @ 125 mls/hr IV .Q8H NIMCO Stop: 04/24/20 06:04 Last Admin: 03/25/20 06:23 Dose: 125 mls/hr Documented by: Methylprednisolone 20 mg/ (Syringe) 0.32 mls @ 1.5 mls/min IV Q8H NIMCO Stop: 04/24/20 13:59 Last Admin: 03/25/20 14:02 Dose: 1.5 mls/min Documented by: Morphine Sulfate (Morphine Sulfate) 3 mg IV Q3H PRN PRN Reason: Pain Stop: 04/08/20 06:04 Ondansetron HCl (Zofran) 4 mg IV Q6H PRN PRN Reason: Nausea Stop: 04/24/20 06:04
[2020-03-25] MEDS: HEPARIN SOD 5,000 UNIT/0.5 ML VIAL SQ SCH (20:49)
[2020-03-26] MEDS: D5W AND NSS 1,000 ML IV SCH ×2 (04:38→13:16)
[2020-03-26] MEDS: methylPREDNISolone 20 MG in SYRINGE 0 ML IV SCH ×3 (05:47→21:21)
[2020-03-26 05:55] LABS: Hematocrit (blood only) 38.7 % (42-52); Hemoglobin 12.8 g/dL (14.0-18.0); Immature Granulocytes # (auto) 0.02 K/uL (0.00-0.02); Immature Granulocytes % (auto) 0.3 %; Lymphocytes # (auto) 0.63 K/uL (1.2-3.4); Lymphocytes % (auto) 8.9 %; Mean Corpuscular Hemoglobin 29.4 pg (25-34); Mean Corpuscular Hgb Conc 33.1 g/dL (32-36); Mean Platelet Volume 9.1 fL (7.4-10.4); Monocytes # (auto) 0.76 K/uL (0.11-0.59); Monocytes % (auto) 10.7 %; Neutrophils # (auto) 5.66 K/uL (1.4-6.5); Neutrophils % (auto) 80.1 %; Platelet Count 295 K/uL (130-400); RDW Coefficient of Variation 13.5 % (11.5-14.5); RDW Standard Deviation 44.4 fL (36.4-46.3); Red Blood Count 4.35 M/uL (4.7-6.1); White Blood Count 7.07 K/uL (4.8-10.8)
[2020-03-26 06:30] LABS: BUN Creatinine Ratio 14.2 (10-20); Calcium 8.4 mg/dl (8.5-10.1); Creatinine Clr Calc Pharmacy 157.6 ml/min; Est GFR (African American) 137.4; Est GFR (Non-African American) 118.5; Potassium 3.8 mmol/L (3.5-5.1)
[2020-03-26] MEDS: HEPARIN SOD 5,000 UNIT/0.5 ML VIAL SQ SCH ×2 (09:21→21:21)
--- NOTE | 2020-03-26 10:14 | Gastroenterology Progress Note ---
Date of Service March 26, 2020 Assessment & Plan (1) Exacerbation of Crohn's disease: 57 year old male w/ fistulizing Crohn's disease s/p ileocolonic resection in 1996 on Stelara, who presented struct of Crohn's flare symptoms . Now passing gas, passed a bowel movement pain 95% improved. SBO -seems to be resolved, likely secondary to Crohn's flare, appreciate surgery input and agree to defer surgery at this time. -Begin clear liquid diet advance to full liquid later today if does well on clears. Does not necessarily have to be eating regular consistency food prior to discharge, but if stays in the hospital overnight would try a low residual diet early tomorrow. Crohn's flare -formed stool, unlikely to have C. difficile -At time of discharge, would DC IV prednisone begin p.o. 40 mg daily x1 week then 30 mg daily x1 week and 25 mg daily x1 week and 20 mg daily x1 week . -Our office will contact him for outpatient clinic follow- up at which time further prednisone prescription will be given to complete the 6 weeks taper. -During that outpatient visit we can arrange EGD for lower esophageal thickening on CT and for restaging of Crohn's, most likely in in a few months. Gallbladder polyp/distention on CT -We will need OP ABD US to ensure stability in 6 months. Can be arranged during outpatient GI follow-up. Esophageal wall thickening on CT - Pantoprazole 40 mg daily - OP EGD at time of colonoscopy We will sign off please notify us if new or worsening symptoms. (2) Small bowel obstruction: Admission and Anticipated Discharge Date Admission Date: March 25, 2020 Supervising Physician Co-Signing Physician Notes I have personally seen and examined the patient with ZEESHAN Donald. Her note reflects my exam and finds. I agree with her impression and plan. He is doing well and tolerating liquid diet. Advance diet as tolerates and D/C for out patient follow up. Silviano Meelndez M.D. Subjective Mr. Nath is a 44-year-old male with a history of fistulas and Crohn's status post ileocolonic resection in 1996. Admitted for flare on 03/25, sypmtoms of 5 days duration: poor appetite, abdominal distention, no BM in >24 hrs, diffuse pain throughout the abdomen. 57 year old male w/ fistulizing Crohn's disease s/p ileocolonic resection in 1996 on Stelara since 2017 (previously failed Imuran, sulfasalazine, Pentasa, Humira, Cimzia) who presents to the ED for abdominal pain, n/v and inability to pass gas/stool in 24 hours. He verifies compliance on Cimzia. Other issues during this hospitalization: Moderate gallbladder distention and suspicion for gallbladder polyposis, esophageal wall thickening on CT. he has had dysphasia in the past without abnormalities on EGD in 2018. Most recent colonoscopy also in 2018 with mild inflammation. Treated with IV methylprednisone 20 mg every 8 hours, and bowel rest. Today, abdominal pain is 95% better. He has passed a small formed brown bowel movement. Reports that he is hungry. Review of Systems Review of Systems: ROS: Gen: Denies weakness, fevers, weight loss Eyes: No eye redness, or pain, no recent vision changes Resp: No SOB, no cough Cardio: No palpitations/irregular beats, no chest pain : Denies pain on urination Skin: No jaundice, itching or new rashes Gastrointestinal: + abdominal pain (95% improved), + bloating (resolved) and + nausea (resolved); no vomiting, no blood in stools and no melena Physical Exam Constitutional: WD/WN, vitals as above Eyes: PERRL, conjunctivae normal, anicteric sclerae ENMT: external ear and nose normal, oropharynx normal Neck: trachea midline, no thyromegaly Respiratory: normal respiratory effort, lungs clear to auscultation Cardiovascular: RRR, no murmur, no edema Gastrointestinal (Abdomen): Inspection/Auscultation: abdomen normal to inspection and + hypoactive bowel sounds (but present); abdomen not distended Percussion/Palpation: abdomen soft; abdomen nontender Musculoskeletal: no cyanosis or clubbing, extremities motor strength 5/5 Skin: no rashes, warm and dry Neurologic: PERRL, EOMI, accommodation nl, no face palsy, no dysarthria Psychiatric: A+Ox3, euthymic affect Lymphatic: no cervical or axillary lymphadenopathy Results & Data ([facility]) Vital Signs (Past 12 Hours) Vital Signs Temp Pulse Resp BP Pulse Ox 03/26/20 08:03 36.7 C 101 H 18 129/77 98 03/25/20 23:00 36.5 C 90 19 112/69 96 Laboratory Results WBC 7, Hb 12, HCT 38, platelets 285, NA 143, K3.8, BUN 10, CR 0.67, glucose 134. Diagnostic Findings CT 03/25 with IV contrast 1. Postoperative changes of prior ileocecectomy with ileocolic anastomosis. There are findings compatible with active inflammatory bowel disease with several loops of bowel wall thickening demonstrating mucosal hyperemia with surrounding inflammatory stranding, interloop edema and trace reactive abdominal pelvic ascites. 2. 10 cm segment of active inflammation involves the distal ileum just proximal to the anastomotic site (similar findings were also noted on the comparison exam). Luminal narrowing involving this loop of bowel is suggestive of a stricture which results in at least a moderate grade small bowel obstruction. 3. No evidence of fistula, sinus tract or drainable fluid collection. 4. Scattered prominent mesenteric lymph nodes are likely reactive. 5. Gallbladder distention with probable gallbladder polyposis. 6. Nonspecific distal esophageal wall thickening. Correlate clinically to exclude esophagitis. Medications Administered IV steroids; holding antibiotics. Dicyclomine 20m TID. Pantoprazole 40mg daily.
--- NOTE | 2020-03-26 12:22 | Surgery Progress Note ---
Date of Service March 26, 2020 Assessment & Plan (1) Exacerbation of Crohn's disease: 44 year-old male with history of fistulizing Crohn's disease diagnosed at 19 years of age and history of ileocolonic resection in 1996 who presented to ED early this morning with abdominal pain and distention with inability to pas flatus or stool for about [address] scan showing active inflammatory bowel disease with small bowel wall thickening, interloop edema, and narrowing of the small bowel resulting in moderate SBO (similar to prior study in 02/2019). Abdomen is soft, nondistended, tender in RLQ without guarding or peritonitis on examination today. Leukocytosis of 15K. CRP elevated at 4.48. 03/26/2020: leukocytosis resolved, return of bowel function, minimal abdominal pain SBO resolving secondary to exacerbation of Crohn's disease Benign abdomen Plan: No acute surgical intervention required at this time. Okay from surgical standpoint to advance diet to clears and then slowly as tolerated Continue steroid therapy per GI recommendations Outpatient f/u with GI Dr. Shin covering this weekend. (2) Small bowel obstruction: secondary to exacerbation of Crohn's disease SBO resolved plan as above (3) Gallbladder polyp: CT scan showing possible polyposis of gallbladder, polyps measuring up to 6 mm. asymptomatic would consider repeating gallbladder US in 6 months to check stability of polyp size. Dr. Vera has seen patient, agrees with above. Subjective feeling better some abdominal pain in lower abdomen but improved denies bloating passing flatus and had regular formed bowel movement this morning no nausea or vomiting Physical Exam Constitutional: WD/WN, vitals as above no acute distress Gastrointestinal (Abdomen): Inspection/Auscultation: abdomen normal to inspection; abdomen not distended Percussion/Palpation: abdomen soft; abdomen nontender, no guarding and abdomen not rigid Skin: no rashes, warm and dry Psychiatric: A+Ox3, euthymic affect Results & Data Vital Signs (Past 12 Hours) Vital Signs Temp Pulse Resp BP Pulse Ox 03/26/20 08:03 36.7 C 101 H 18 129/77 98
[2020-03-26] MEDS: PANTOprazole 40 MG in SYRINGE 0 ML IV SCH (12:31)
--- NOTE | 2020-03-26 13:29 | Hospitalist Progress Note ---
Date of Service March 26, 2020 Assessment & Plan (1) Exacerbation of Crohn's disease: Admitted with abdominal pain with minimal distention and constipation for 3 days History of Crohn's disease and the CAT scan did show ileitis with SBO Likely secondary to exacerbation of Crohn's Appreciate GI input and recommendation Methylprednisone 20 mg IV every 8 hourly and Bentyl Has been feeling a lot better as of today No obstructive symptoms Bowel is moved (2) Small bowel obstruction: No overt obstructive symptoms Does not require any NG tube Appreciate surgery input and recommendation Conservative management N.p.o., IV fluid and pain medications Bowel is moved Will start clears orally and advance diet as tolerated (3) Gallbladder polyp: No acute cholecystitis Will have an ultrasound in 6 months DVT prophylax Subcu hep Admission and Anticipated Discharge Date Admission Date: March 25, 2020 Anticipated date of discharge: 03/27/20 Subjective The patient was seen and examined in the medical floor He was admitted with Ann-Marie acute exacerbation of Crohn's disease with possible small bowel obstruction Has been feeling a little better this morning Denies any abdominal distention, any nausea and or vomiting Bowel has not moved yet 03/26/2020 The patient was seen and examined in medical floor He has been feeling a lot better with less or no abdominal pain and no distention He has moved his bowels this morning We will start with clears orally and advanced as tolerated Review of Systems Review of Systems: All systems reviewed and are unremarkable except as noted b elow Gastrointestinal: + abdominal pain; no bloating, no nausea and no vomiting Physical Exam Physical Exam: Lying in bed comfortably Constitutional: well developed, well nourished and + ill appearing; no acute distress Eyes: PERRL, conjunctivae normal, anicteric sclerae ENMT: external ear and nose normal, oropharynx normal Neck: trachea midline, no thyromegaly Respiratory: normal respiratory effort; no respiratory distress Auscultation: lungs clear to auscultation bilaterally Cardiovascular: Rate/Rhythm: regular rate and regular rhythm Heart Sounds: no murmur Gastrointestinal (Abdomen): Inspection/Auscultation: abdomen normal to inspection; abdomen not distended Percussion/Palpation: abdomen soft; abdomen nontender Musculoskeletal: No acute arthritis involving any joints Lymphatic: no cervical or axillary lymphadenopathy Results & Data Results & Data ([facility]) Vital Signs (Past 12 Hours) Vital Signs Temp Pulse Resp BP Pulse Ox 03/26/20 08:03 36.7 C 101 H 18 129/77 98 Laboratory Results Short CBC 03/26/20 Range/Units 05:37 WBC 7.07 (4.8-10.8) K/uL Hgb 12.8 L D (14.0-18.0) g/dL Hct 38.7 L (42-52) % Plt Count 295 (130-400) K/uL BMP 03/26/20 05:37 Sodium 143 Potassium 3.8 D Chloride 111 H Carbon Dioxide 26 BUN 10 D Creatinine 0.67 D Glucose 134 H Calcium 8.4 L Medications Administered Current Inpatient Medications Acetaminophen (Tylenol) 650 mg PO Q4H PRN PRN Reason: pain/fever Stop: 04/24/20 06:04 Last Admin: 03/25/20 17:16 Dose: 650 mg Documented by: Dicyclomine HCl (Bentyl) 10 mg PO TID PRN PRN Reason: Pain Stop: 04/24/20 13:59 Heparin Sodium (Porcine) (Heparin Sodium (Porcine)) 5,000 units SQ Q12 NIMCO Stop: 04/24/20 20:59 Last Admin: 03/26/20 09:21 Dose: Not Given Documented by: Pantoprazole Sodium 40 mg/ (Syringe) 10 mls @ 5 mls/min IV DAILY@1100 NIMCO Stop: 04/24/20 10:59 Last Admin: 03/26/20 12:31 Dose: 5 mls/min Documented by: Dextrose/Sodium Chloride (D5w And Nss) 1,000 mls @ 125 mls/hr IV .Q8H NIMCO Stop: 04/24/20 06:04 Last Admin: 03/26/20 13:16 Dose: 125 mls/hr Documented by: Methylprednisolone 20 mg/ (Syringe) 0.32 mls @ 1.5 mls/min IV Q8H NIMCO Stop: 04/24/20 13:59 Last Admin: 03/26/20 13:14 Dose: 1.5 mls/min Documented by: Morphine Sulfate (Morphine Sulfate) 3 mg IV Q3H PRN PRN Reason: Pain Stop: 04/08/20 06:04 Ondansetron HCl (Zofran) 4 mg IV Q6H PRN PRN Reason: Nausea Stop: 04/24/20 06:04
[2020-03-27] MEDS: methylPREDNISolone 20 MG in SYRINGE 0 ML IV SCH (05:46)
[2020-03-27 05:58] LABS: Hematocrit (blood only) 40.8 % (42-52); Hemoglobin 13.2 g/dL (14.0-18.0); Immature Granulocytes # (auto) 0.01 K/uL (0.00-0.02); Immature Granulocytes % (auto) 0.2 %; Lymphocytes % (auto) 10.5 %; Mean Corpuscular Hemoglobin 29.3 pg (25-34); Mean Corpuscular Hgb Conc 32.4 g/dL (32-36); Mean Corpuscular Volume 90.5 fL (80-100); Mean Platelet Volume 9.4 fL (7.4-10.4); Monocytes # (auto) 0.63 K/uL (0.11-0.59); Monocytes % (auto) 11.1 %; Neutrophils # (auto) 4.45 K/uL (1.4-6.5); Neutrophils % (auto) 78.2 %; Platelet Count 291 K/uL (130-400); RDW Coefficient of Variation 13.8 % (11.5-14.5); Red Blood Count 4.51 M/uL (4.7-6.1); White Blood Count 5.69 K/uL (4.8-10.8)
[2020-03-27 06:40] LABS: BUN Creatinine Ratio 11.8 (10-20); Calcium 8.8 mg/dl (8.5-10.1); Creatinine Clr Calc Pharmacy 137.2 ml/min; Est GFR (African American) 129.7; Est GFR (Non-African American) 111.9; Potassium 3.9 mmol/L (3.5-5.1)
[2020-03-27] MEDS: HEPARIN SOD 5,000 UNIT/0.5 ML VIAL SQ SCH (08:05)
--- NOTE | 2020-03-27 09:38 | Surgery Progress Note ---
Date of Service March 27, 2020 Assessment & Plan (1) Exacerbation of Crohn's disease: 44-year-old male with Crohn's flare and partial small bowel obstruction, resolved with steroids. No surgical intervention indicated Okay to discharge from surgery standpoint May advance to low fiber diet or stay on full liquids as he feels comfortable Follow-up with GI as an outpatient Subjective 44-year-old male with known Crohn's disease admitted for Crohn's flare with partial small bowel obstruction. He is evaluated by GI and placed on steroids. He is having bowel movements and tolerating full liquid diet. He denies any abdominal pain feels much better than he did when he came into the hospital. Physical Exam Constitutional: WD/WN, vitals as above Gastrointestinal (Abdomen): normal bowel sounds, soft, nontender, no hepatosplenomegaly Results & Data Vital Signs (Past 12 Hours) Vital Signs Temp Pulse Resp BP Pulse Ox 03/27/20 07:24 36.5 C 86 18 119/74 99 03/26/20 23:39 36.6 C 85 19 118/56 L 97 PG Care Time/CCT Total # of Minutes Spent Total Time Spent with Patient: Total time spent is greater than 50% in coordination of care (as documented) at patient's floor/unit and/or counseling patient: Coding Level of Care Code 51762 Inpt Consult Level 2 Diagnoses Exacerbation of Crohn's disease K50.90
--- NOTE | 2020-03-27 11:21 | Hospitalist Progress Note ---
Date of Service March 27, 2020 Assessment & Plan (1) Exacerbation of Crohn's disease: Admitted with abdominal pain with minimal distention and constipation for 3 days History of Crohn's disease and the CAT scan did show ileitis with SBO Likely secondary to exacerbation of Crohn's Appreciate GI input and recommendation Methylprednisone 20 mg IV every 8 hourly and Bentyl Has been feeling a lot better as of today No abdominal pain and no more diarrhea (2) Small bowel obstruction: No overt obstructive symptoms Does not require any NG tube Appreciate surgery input and recommendation Conservative management N.p.o., IV fluid and pain medications Bowel is moved Will start clears orally and advance diet as tolerated Has been ambulating in the room and hallway without any problem Tolerating regular diet and moving his bowels Will be discharged this afternoon (3) Gallbladder polyp: No acute cholecystitis Will have an ultrasound in 6 months DVT prophylax Subcu hep Admission and Anticipated Discharge Date Admission Date: March 25, 2020 Anticipated date of discharge: 03/27/20 Subjective The patient was seen and examined in the medical floor He was admitted with Ann-Marie acute exacerbation of Crohn's disease with possible small bowel obstruction Has been feeling a little better this morning Denies any abdominal distention, any nausea and or vomiting Bowel has not moved yet 03/26/2020 The patient was seen and examined in medical floor He has been feeling a lot better with less or no abdominal pain and no distention He has moved his bowels this morning We will start with clears orally and advanced as tolerated 03/27/2020 The patient was seen and examined in medical floor He has been feeling a lot better and denies any abdominal pain and/or distention He has been ambulating and moving his bowels regularly Review of Systems Review of Systems: All systems reviewed and are unremarkable except as noted below Gastrointestinal: no abdominal pain, no bloating, no nausea and no vomiting Physical Exam Physical Exam: Lying in bed comfortably Constitutional: well developed, well nourished and + ill appearing; no acute distress Eyes: PERRL, conjunctivae normal, anicteric sclerae ENMT: external ear and nose normal, oropharynx normal Neck: trachea midline, no thyromegaly Respiratory: normal respiratory effort; no respiratory distress Auscultatio n: lungs clear to auscultation bilaterally Cardiovascular: Rate/Rhythm: regular rate and regular rhythm Heart Sounds: no murmur Gastrointestinal (Abdomen): Inspection/Auscultation: abdomen normal to inspection and normal bowel sounds; abdomen not distended Percussion/Palpation: abdomen soft; abdomen nontender Neurologic: Alert, awake and oriented x3 Lymphatic: no cervical or axillary lymphadenopathy Results & Data Results & Data ([facility]) Vital Signs (Past 12 Hours) Vital Signs Temp Pulse Resp BP Pulse Ox 03/27/20 07:24 36.5 C 86 18 119/74 99 03/26/20 23:39 36.6 C 85 19 118/56 L 97 Laboratory Results Short CBC 03/27/20 Range/Units 05:37 WBC 5.69 (4.8-10.8) K/uL Hgb 13.2 L (14.0-18.0) g/dL Hct 40.8 L (42-52) % Plt Count 291 (130-400) K/uL BMP 03/27/20 05:37 Sodium 144 Potassium 3.9 Chloride 109 H Carbon Dioxide 29 BUN 9 Creatinine 0.77 Glucose 106 H Calcium 8.8 Medications Administered Current Inpatient Medications Acetaminophen (Tylenol) 650 mg PO Q4H PRN PRN Reason: pain/fever Stop: 04/24/20 06:04 Last Admin: 03/25/20 17:16 Dose: 650 mg Documented by: Dicyclomine HCl (Bentyl) 10 mg PO TID PRN PRN Reason: Pain Stop: 04/24/20 13:59 Heparin Sodium (Porcine) (Heparin Sodium (Porcine)) 5,000 units SQ Q12 NIMCO Stop: 04/24/20 20:59 Last Admin: 03/27/20 08:05 Dose: Not Given Documented by: Pantoprazole Sodium 40 mg/ (Syringe) 10 mls @ 5 mls/min IV DAILY@1100 [facility] Stop: 04/24/20 10:59 Last Admin: 03/26/20 12:31 Dose: 5 mls/min Documented by: Methylprednisolone 20 mg/ (Syringe) 0.32 mls @ 1.5 mls/min IV Q8H NIMCO Stop: 04/24/20 13:59 Last Admin: 03/27/20 05:46 Dose: 1.5 mls/min Documented by: Morphine Sulfate (Morphine Sulfate) 3 mg IV Q3H PRN PRN Reason: Pain Stop: 04/08/20 06:04 Ondansetron HCl (Zofran) 4 mg IV Q6H PRN PRN Reason: Nausea Stop: 04/24/20 06:04
--- NOTE | 2020-03-27 15:24 | Discharge Summary ---
Date of Service March 27, 2020 Admission HPI Per Admitting Provider DICTATED BY: Sebastian Cardenas MD DATE OF ADMISSION: 03/25/2020 CHIEF COMPLAINT: Abdominal pain. HISTORY OF PRESENT ILLNESS: This is a 44-year-old male with past medical history significant for Crohn's disease status post ileocolic resection, who presents with abdominal pain. The patient seems to have been diagnosed with Crohn's disease at the age of 19 and has been previously treated with Humira, sulfasalazine, Pentasa, Cimzia. Currently, he is on Stelara. The patient has history of 18 inch ileocolic resection at [place] in 1996 as per previous records. The patient's last time saw GI was about a year ago. He says he is having abdominal pain since last Sunday, but he thought he we will manage it at home, but yesterday after coming from work he had severe pain in the abdomen. In the middle of the night, he woke up with vomiting of the food material, no blood in the vomitus. Last bowel movement was about 2 days ago. There are no bloody stools or black stools. Having significant abdominal pain, so he came to the ER. During the vomiting, he had sweating and felt hot. He received a dose of morphine in the ER. Currently requesting for some more pain medications. Denies any headache, no blurred visions, no earache, no runny nose. Sore throat from vomiting. No difficulty swallowing, no chest pain, no shortness of breath. Normal bladder movements. No rash. Currently, resting comfortable and hemodynamically stable. Admission Exam Per Admitting Provider GENERAL: The patient is of moderate build, not in acute distress. VITAL SIGNS: Temperature 36.3, pulse 85, respiratory rate 16, blood pressure 131/83, oxygen 98% on room air. HEENT: Pupils equal, round, and reactive to light. NECK: Supple. CARDIOVASCULAR: S1, S2 heard, regular rate and rhythm, no murmur, no gallop. RESPIRATORY SYSTEM: Normal AP diameter. No accessory muscle use. No wheezing, no crackles. ABDOMEN: Soft, bowel sounds present. Diffuse tenderness. Mild guarding. No rigidity, no distention. CENTRAL NERVOUS SYSTEM: Cranial nerves II-XII grossly intact. Nonfocal. EXTREMITIES: No edema, no erythema. Principal Diagnosis Exacerbation of Crohn's disease, small bowel obstruction-resolved Discharge Exam Constitutional well developed, well nourished and + ill appearing; no acute distress Eyes PERRL, conjunctivae normal, anicteric sclerae ENMT external ear and nose normal, oropharynx normal Neck trachea midline, no thyromegaly Respiratory normal respiratory effort; no respiratory distress Auscultation: lungs clear to auscultation bilaterally Cardiovascular Rate/Rhythm: regular rate and regular rhythm Heart Sounds: no murmur Gastrointestinal (Abdomen) Inspection/Auscultation: abdomen normal to inspection and normal bowel sounds; abdomen not distended Percussion/Palpation: abdomen soft; abdomen nontender Lymphatic no cervical or axillary lymphadenopathy Discharge Data Allergies Allergy/AdvReac Type Severity Reaction Status Date / Time No Known Allergies Allergy Verified 03/25/20 03:24 Consultations 03/25/20 04:51 ED Decision to Admit Stat 03/25/20 06:05 Consult Case Management - Discharge Planning Routine 03/25/20 08:00 Consult Gastroenterology Routine Consult General Surgery Routine Ordered Studies 03/25/20 03:15 CT abd pelvis IV con only Urgent Hospital Course (1) Exacerbation of Crohn's disease: Admitted with abdominal pain with minimal distention and constipation for 3 days History of Crohn's disease and the CAT scan did show ileitis with SBO Likely secondary to exacerbation of Crohn's Appreciate GI input and recommendation Methylprednisone 20 mg IV every 8 hourly and Bentyl Has been feeling a lot better as of today No abdominal pain and no more diarrhea (2) Small bowel obstruction: No overt obstructive symptoms Does not require any NG tube Appreciate surgery input and recommendation Conservative management N.p.o., IV fluid and pain medications Bowel is moved Will start clears orally and advance diet as tolerated Has been ambulating in the room and hallway without any problem Tolerating regular diet and moving his bowels Will be discharged this afternoon (3) Gallbladder polyp: No acute cholecystitis Will have an ultrasound in 6 months DVT prophylax Subcu hep Total Time Total Time Spent Total Time Spent (In Minutes): 35 minutes Total Time Includes: Examination of the Patient, Discharge Planning, Medication Reconciliation and Communication With Other Providers Discharge Plan Discharge Items Patient Disposition: Home - Self-Care Reason For Visit: ABDOMINAL PAIN Discharge Diagnosis: Exacerbation of Crohn's disease, small bowel obstruction-resolved Condition on Discharge: Good Activity: Resume your previous activity Non-emergency contact: Primary Care Provider Call non-emergency contact if: you have any medication questions and your symptoms worsen Follow-up/Referrals: Janelle Acharya PA-C [Outside Practitioners] - 04/01/20 8:00 am (04/01/2020 8:00 AM Janelle Acharya PA-C [facility] ) Diet: Regular Addtl Attending Provider Instructions: Please take your medications as prescribed Pending Studies at Discharge: No Stand-Alone Forms: My [facility], Smoking Cessation Medications and DC Order Prescriptions: New prednisone 10 mg tablet 10 mg PO UD Qty: 62 RF: 0 No Action No Known Home Medications RF: 0 Discharge Orders: Discharge Order (Routine); Ordered 03/27/20 Ordered By: Ileana Keating Admission Data Admit Date/Time: 03/25/20 05:29 Attending Provider: Ileana Keating Admit Provider: Sebastian Cardenas Primary Care Provider: PCP,NO Other Providers: Sebastian Cardenas ; Marlon Cadet ; Sophia Flores ; Charles Clark ; Danielle Whittaker ; Jose Enrique Quach ; Kayln Morse ; Rosie Harris ; Leanne Lin ; Jesus Manuel Perales ; Silviano Melendez ; Joanne Arnold ; Mari Kelly ; Sofía Ram ; Nancie Nixon ; Kd Young ; Russ Morse ; Jamila Pepper ; Helio Leone ; Jasmyn Morse ; Kirit Lei ; Jesse Clark ; Lakehsia Bean ; Elias Zamora ; Sophia Velarde ; Gerard Guy Jr ; Manuel Vera ; Nancie Schmitz Other Interventions: Discharge Summary Assessment (RN) Last Done: 03/27/20 11:29 DC Date/Time DO NOT enter until pt leaves facility: 03/27/20 12:30
== END 2020-03-27 12:30 | disposition home or self-care (01) | DRG 387 ==
LOC: ED 02:56 → SUATTDRO 05:29 → 2N 05:29

== ENCOUNTER 2021-10-17 08:23 | Inpatient (IN) ==
[2021-10-17] MEDS ORDERED: PROMETHAZINE 6.25 MG/50.25 ML BAG IV STA (09:40)
[2021-10-17] MEDS ORDERED: ONDANSETRON INJ 2 MG/ML 2 ML VIAL IV STA (09:40)
[2021-10-17] MEDS ORDERED: methylPREDNISolone 125 MG/2 ML VIAL IV STA (09:40)
[2021-10-17] MEDS ORDERED: MoRPHine SULFATE 4 MG/ML 1 ML CARP\\VIAL IV PRN (09:40)
[2021-10-17] MEDS ORDERED: SODIUM CHLORIDE 0.9% 1000ML 1,000 ML IV STA (09:40)
--- NOTE | 2021-10-17 09:44 | Emergency Department Note ---
Impression & Plan Partial small bowel obstruction, Crohn's disease, Acute dehydration, Leukocytosis ED Provider Note NAME: LOIS SEWELL JR AGE: 46 SEX: M : 1975 ARRIVES VIA: Walk-In INFORMANT: [Patient] ED PROVIDER(S): [Elfego Miguel MD] CHIEF COMPLAINT: Abdominal pain HISTORY OF PRESENT ILLNESS: The patient is a 46-year-old male who presents to the ER with 3 to 4 days of abd ominal pain and what he thinks is a Crohn's flare. The patient states that yesterday, his pain worsened and became a 7/10. He began vomiting this morning. He has no diarrhea in fact, he has not had a bowel movement in a few days. He has had some sweats, no fever. No cough or congestion, no stuffy nose or sore throat. The patient's abdomen does feel somewhat distended. The patient did start taking oral prednisone on his own at home, so far it has not helped, typically steroids help his flareups. REVIEW OF SYSTEMS: See HPI for pertinent positives and negatives. A total of ten systems were reviewed and were otherwise negative. PMHx/PSHx: See Below SOCIAL HISTORY: See Below. PHYSICAL EXAM: GENERAL: Patient is in no acute distress. HEENT: No acute trauma, normocephalic atraumatic, mucous membranes dry, no nasal congestion, no scleral icterus. NECK: No stridor, no adenopathy, no meningismus, trachea is midline. LUNGS: Clear to auscultation bilaterally, no wheeze, no rhonchi, breath sounds equal. HEART: Mildly tachycardic, regular rhythm, no murmur. ABDOMEN: Soft, diffusely mildly tender, there is some mild distention, bowel sounds positive, no hernias, no peritonitis. EXTREMITIES: No cyanosis or edema, full range of motion of all the joints without pain or difficulty, no signs for acute trauma. NEUROLOGIC: Oriented x 3, no acute motor or sensory deficits, no focal weakness. SKIN: No rash, no jaundice, no diaphoresis. DIFFERENTIAL DIAGNOSIS: Appendicitis, testicular torsion, diverticulitis, UTI, obstruction, mesenteric ischemia, aortic pathology, inflammatory bowel disease, renal colic, PUD, pancreatitis, biliary pathology, hernia, volvulus, constipation, as well as other pathologies. EMERGENCY DEPARTMENT COURSE/PROCEDURES: ECG: Indication was abdominal pain. The ECG shows a normal sinus rhythm with a rate of 84. There is no ST elevation, no PVCs. The QTc is 460. Continuous Cardiac Monitoring: An order was placed for continuous cardiac monitoring. The monitor shows a rate of 81 with normal sinus rhythm. MEDICAL DECISION MAKING: There is a marked leukocytosis of 20,000. This could be consistent with infection, certainly, some of the white count elevation could be consistent with the patient's recent steroid use. There is a normal hemoglobin. Platelet count mildly elevated. No significant electrolyte abnormality or kidney failure. Lactic acid level is not elevated making severe sepsis or bowel ischemia less likely. No worrisome liver enzyme elevation. Lipase was not elevated. ECG shows a sinus rhythm, no acute ischemic change. Cardiac enzyme testing x1 is not consistent with acute cardiac injury. Urinalysis does not show infection. Covid, influenza and RSV testing was negative. Chest film did not show pneumonia or CHF. No free air. Abdominal and pelvis CT shows a partial small bowel obstruction and a Crohn's exacerbation. The patient received IV saline for hydration. He was given IV Zofran and IV Phenergan for nausea. He received IV morphine for pain. He was given IV Solu- Medrol. The patient does feel somewhat improved with our treatment. The patient is in need of a hospital stay. I spoke with GI, I talked with the case management team. The on-call hospitalist was consulted. Past Med/Surg History Medical History (Updated 10/17/21 @ 18:23 by Elfego Miguel MD) Crohns disease Follows with [facility] (Dr. Perales) - maintained on [facility] Surgical History History of appendectomy History of bowel resection 18 inches ileocolonic resection - 1996 ([place]) Social History Smoking Status: Never smoker Second Hand Exposure: No; Hx Alcohol Use: No Hx Substance Use: No Preferred Language: Welsh Communication Ability: Effective Business Writer Required: No Beliefs That Will Affect Care: None Current Living Situation: Spouse and Family Other Information That Helps Us Care for You: No Feels Safe at Home: Yes Safety Concerns: Feels Safe At This Time Assistive Devices: Contacts Allergies Allergies Allergy/AdvReac Type Severity Reaction Status Date / Time No Known Allergies Allergy Verified 10/17/21 08:54 Home Meds Home Medications Medication Instructions Recorded Confirmed ustekinumab 90 mg/mL subcutaneous 90 mg SUBCUT Q8WK 10/17/21 10/17/21 syringe (Stelara) Results & Data (ED) Vital Signs Vital Signs - 24 hr 10/17/21 08:28 10/17/21 12:13 Temperature 36.4 C L Temperature Source Temporal Artery Scan Pulse Rate 91 H Pulse Rate [Left Finger] 83 Pulse Rhythm Regular Pulse Strength Normal Respiratory Rate 20 18 Respiratory Effort / Characteristics Non-Labored Spontaneous Non-Labored Respiratory Depth Normal Normal Respiratory Pattern Regular Blood Pressure 120/89 Blood Pressure [Right Arm] 121/79 Blood Pressure Mean 99 Blood Pressure Mean [Right Arm] 93 Blood Pressure Position Sitting Pulse Oximetry 97 95 Oxygen Delivery Method Room Air Room Air Sepsis Recent Fever Within 48 Hours No Sepsis New/Unexplained Change in Mental Status N/A Sepsis Action Taken by Nursing No Action Required Home Medications Current Medication List: was personally reviewed by me Laboratory Data Attestation: I reviewed the patient's lab results. Result diagrams: 10/17/21 09:43 10/17/21 09:43 Lab Results 10/17/21 10/17/21 10/17/21 Range/Units 09:43 09:43 09:49 WBC 20.17 H (4.8-10.8) K/uL RBC 5.37 (4.7-6.1) M/uL Hgb 16.4 (14.0-18.0) g/dL Hct 47.2 (42-52) % MCV 87.9 (80-100) fL MCH 30.5 (25-34) pg MCHC 34.7 (32-36) g/dL RDW Std Deviation 42.4 (36.4-46.3) fL RDW Coeff of Nacho 13.2 (11.5-14.5) % Plt Count 427 H (130-400) K/uL MPV 9.2 (7.4-10.4) fL Immature Gran % (Auto) 0.1 % Neut % (Auto) 92.7 % Lymph % (Auto) 5.9 % [place] % (Auto) 1.3 % Eos % (Auto) 0.0 % Baso % (Auto) 0.0 % Neut # (Auto) 18.69 H (1.4-6.5) K/uL Lymph # (Auto) 1.18 L (1.2-3.4) K/uL [place] # (Auto) 0.26 (0.11-0.59) K/uL Eos # (Auto) 0.00 (0-0.5) K/uL Baso # (Auto) 0.01 (0-0.2) K/uL Immature Gran # (Auto) 0.03 H (0.00-0.02) K/uL ESR 23 H (0-15) mm/hr Sodium 138 (136-145) mmol/L Potassium 4.6 (3.5-5.1) mmol/L Chloride 102 (98-107) mmol/L Carbon Dioxide 26 (21-32) mmol/L Anion Gap 10.0 (3-11) BUN 15 (7-18) mg/dl Creatinine 0.93 (0.6-1.4) mg/dl Est Cr Clr Drug Dosing 111.3 ml/min Est GFR ( Amer) 115.3 ml/min Est GFR (Non-Af Amer) 99.5 ml/min BUN/Creatinine Ratio 15.7 (10-20) Glucose 120 H (70-99) mg/dl Calcium 10.0 (8.5-10.1) mg/dl Magnesium 2.3 (1.8-2.4) mg/dl Total Bilirubin 0.7 (0.2-1) mg/dl AST 11 L (15-37) U/L ALT 26 (12-78) Alkaline Phosphatase 89 (45-117) U/L Troponin I < 0.015 (0-0.045) ng/ml C-Reactive Protein (0-0.29) mg/dl Total Protein 8.2 (6.4-8.2) gm/dl Albumin 4.1 (3.4-5.0) gm/dl Globulin 4.1 H (2.5-4.0) gm/dl Albumin/Globulin Ratio 1.0 (0.9-2) Lipase 127 (73-393) U/L Urine Color Urine Appearance (Clear) Urine pH (4.5-7.5) Ur Specific [place] (1.000-1.030) Urine Protein (Negative) Urine Glucose (UA) (Negative) Urine Ketones (Negative) Urine Blood (Negative) Urine Nitrite (Negative) Urine Bilirubin (Negative) Urine Urobilinogen (Negative) Ur Leukocyte Esterase (Negative) Urine WBC (Auto) (0-5) /hpf Urine RBC (Auto) (0-4) /hpf U Hyaline Cast (Auto) (0-5) /lpf U Epithel Cells (Auto) (0-5) /lpf Urine Bacteria (Auto) (Negative) 10/17/21 10/17/21 Range/Units 09:49 12:12 WBC (4.8-10.8) K/uL RBC (4.7-6.1) M/uL Hgb (14.0-18.0) g/dL Hct (42-52) % MCV (80-100) fL MCH (25-34) pg MCHC (32-36) g/dL RDW Std Deviation (36.4-46.3) fL RDW Coeff of Nacho (11.5-14.5) % Plt Count (130-400) K/uL MPV (7.4-10.4) fL Immature Gran % (Auto) % Neut % (Auto) % Lymph % (Auto) % [place] % (Auto) % Eos % (Auto) % Baso % (Auto) % Neut # (Auto) (1.4-6.5) K/uL Lymph # (Auto) (1.2-3.4) K/uL [place] # (Auto) (0.11-0.59) K/uL Eos # (Auto) (0-0.5) K/uL Baso # (Auto) (0-0.2) K/uL Immature Gran # (Auto) (0.00-0.02) K/uL ESR (0-15) mm/hr Sodium (136-145) mmol/L Potassium (3.5-5.1) mmol/L Chloride (98-107) mmol/L Carbon Dioxide (21-32) mmol/L Anion Gap (3-11) BUN (7-18) mg/dl Creatinine (0.6-1.4) mg/dl Est Cr Clr Drug Dosing ml/min Est GFR ( Amer) ml/min Est GFR (Non-Af Amer) ml/min BUN/Creatinine Ratio (10-20) Glucose (70-99) mg/dl Calcium (8.5-10.1) mg/dl Magnesium (1.8-2.4) mg/dl Total Bilirubin (0.2-1) mg/dl AST (15-37) U/L ALT (12-78) Alkaline Phosphatase (45-117) U/L Troponin I (0-0.045) ng/ml C-Reactive Protein 4.01 H (0-0.29) mg/dl Total Protein (6.4-8.2) gm/dl Albumin (3.4-5.0) gm/dl Globulin (2.5-4.0) gm/dl Albumin/Globulin Ratio (0.9-2) Lipase (73-393) U/L Urine Color Dark Yellow Urine Appearance Clear (Clear) Urine pH 5.5 (4.5-7.5) Ur Specific [place] > 1.045 H (1.000-1.030) Urine Protein 1+ H (Negative) Urine Glucose (UA) Negative (Negative) Urine Ketones 1+ H (Negative) Urine Blood Negative (Negative) Urine Nitrite Negative (Negative) Urine Bilirubin 1+ H (Negative) Urine Urobilinogen Negative (Negative) Ur Leukocyte Esterase Negative (Negative) Urine WBC (Auto) 1-5 (0-5) /hpf Urine RBC (Auto) 0-4 (0-4) /hpf U Hyaline Cast (Auto) 10-30 H (0-5) /lpf U Epithel Cells (Auto) 5-10 H (0-5) /lpf Urine Bacteria (Auto) Negative (Negative) Administered Medications Acetaminophen (Acetaminophen 325 Mg Tab) 650 mg PO Q4H PRN PRN Reason: Moderate Pain Stop: 11/16/21 14:22 Last Admin: 10/17/21 16:34 Dose: 650 mg Documented by: [id number] Lactated Ringer's (Lr) 1,000 mls @ 80 mls/hr IV .[id number] NIMCO Stop: 10/18/21 15:22 Last Admin: 10/17/21 14:36 Dose: 80 mls/hr Documented by: [id number] Discontinued Medications Sodium Chloride (Nss 1000ml) 1,000 mls @ 999 mls/hr IV .[id number] STA Stop: 10/17/21 10:40 Last Infusion: 10/17/21 11:02 Dose: 0 mls/hr Documented by: [id number] Admin: 10/17/21 10:00 Dose: 999 mls/hr Documented by: [id number] Promethazine HCl (Phenergan) 6.25 mg in 50.25 mls @ 201 mls/hr IV NOW STA Stop: 10/17/21 09:54 Last Infusion: 10/17/21 11:02 Dose: 0 mls/hr Documented by: [id number] Admin: 10/17/21 10:02 Dose: 201 mls/hr Documented by: [id number] Ioversol (Optiray 320 100ml) 94 ml IV ONCE ONE Stop: 10/17/21 10:38 Last Admin: 10/17/21 10:37 Dose: 94 ml Documented by: [id number] Methylprednisolone (Methylprednisolone 125 Mg/2 Ml Vial) 60 mg IV NOW STA Stop: 10/17/21 09:41 Last Admin: 10/17/21 10:02 Dose: 60 mg Documented by: [id number] Morphine Sulfate (Morphine Sulfate 4 Mg/Ml 1 Ml Carp\Vial) 4 mg IV Q15M PRN PRN Reason: Pain Stop: 10/31/21 09:39 Last Admin: 10/17/21 10:01 Dose: 4 mg Documented by: [id number] Ondansetron HCl (Ondansetron Inj 2 Mg/Ml 2 Ml Vial) 4 mg IV NOW STA Stop: 10/17/21 09:41 Last Admin: 10/17/21 10:01 Dose: 4 mg Documented by: [id number] Imaging Data Radiologist's Impression: Abdomen/Pelvis CT 10/17/21 09:40 CT abd pelvis IV con only CLINICAL HISTORY: History of Crohn's disease. Patient reports a flareup starting yesterday. Nausea and vomiting. Evaluate for obstruction. COMPARISON STUDY: 03/25/2020 CT DOSE: 646.44 mGycm TECHNIQUE: Standard CT of the Abdomen and Pelvis was performed with IV contrast. A dose lowering technique was utilized adhering to the principles of ALARA. Contrast Volume: Optiray 320, 94 ml. The patient did not receive oral contrast. FINDINGS: Lung base: The lung bases are clear. Abdominal cavity and bowel: Compared to the previous examination, the patient is again status post right hemicolectomy and terminal ileum resection with patent anastomosis. However, there is now patchy mucosal thickening and narrowing of multiple segments of distal ileum as seen on image 236 and on image 278. On image 78, there is actually a transition between mildly to moderately dilated p roximal small bowel loops and decompressed distal small bowel loops that demonstrate the mucosal thickening. Findings are characteristic of recurrence of active Crohn's disease and associated partial small bowel obstruction. The remainder of the colon is decompressed. No other inflammatory changes, free fluid or free air are seen. There is a small hiatal hernia. Liver: There is homogeneous attenuation of the liver parenchyma. There is no evidence for enhancing mass lesion. Spleen: There is homogeneous attenuation of the splenic parenchyma. There is no enhancing mass lesion. Pancreas: There is homogeneous attenuation of the pancreatic parenchyma. There is no evidence for mass lesion or peripancreatic fluid collection. Gall Bladder: The gallbladder is well distended with suspicion of cholelithiasis. Gallbladder ultrasound would be the study of choice for further evaluation. Adrenal glands: The adrenal glands are normal in size and attenuation. There is no evidence for enhancing mass lesion. Kidneys: There is homogeneous attenuation of the renal parenchyma bilaterally. There is no evidence for renal calculus or hydronephrosis. There is no evidence for enhancing mass. Bladder: The bladder is within normal limits with no evidence for focal mass, calculus or diverticulum. : There is no evidence for pelvic mass or adenopathy. There is no evidence for pelvic ascites. Vasculature: There is no evidence for aneurysmal dilatation of the abdominal aorta. Osseous structures: There is no acute osseous pathology. IMPRESSION: 1. Compared to the previous study, there is evidence for recurrence of active Crohn's disease with mucosal thickening and narrowing of multiple segments of ileum. Associated partial small bowel obstruction is present. 2. There is also suspicion of cholelithiasis. ACT 112: Negative or not required by law. Electronically signed by: Darryl Rivas M.D. 10/17/2021 11:43 AM Chest X-Ray 10/17/21 09:40 XR chest 1V portable CLINICAL HISTORY: abd pain TECHNIQUE: Single frontal radiograph of the chest was obtained. Comparison: Comparison is made to chest one view 03/01/2017 FINDINGS: No lines and tubes are seen. The cardiomediastinal silhouette is normal. The lungs are clear. No evidence of pleural effusion or pneumothorax. IMPRESSION: No acute chest disease. ACT 112: Negative or not required by law. Electronically signed by: Raul Jimenez M.D. 10/17/2021 10:00 AM Discharge Plan Visit Data Chief Complaint: Abdominal Pain Stated Complaint: ABD PAIN ED Provider: Elfego Miguel Discharge Problem: Partial small bowel obstruction, Crohn's disease, Acute dehydration, Leukocytosis Patient Disposition: Admitted As Inpatient Condition: Fair Discharge Instructions Interventions: ED Discharge Assessment Last Done: 10/17/21 14:00
[2021-10-17 09:52] LABS: Basophils # (auto) 0.01 K/uL (0-0.2); Hematocrit (blood only) 47.2 % (42-52); Hemoglobin 16.4 g/dL (14.0-18.0); Immature Granulocytes # (auto) 0.03 K/uL (0.00-0.02); Immature Granulocytes % (auto) 0.1 %; Lymphocytes # (auto) 1.18 K/uL (1.2-3.4); Lymphocytes % (auto) 5.9 %; Mean Corpuscular Hemoglobin 30.5 pg (25-34); Mean Corpuscular Hgb Conc 34.7 g/dL (32-36); Mean Corpuscular Volume 87.9 fL (80-100); Mean Platelet Volume 9.2 fL (7.4-10.4); Monocytes # (auto) 0.26 K/uL (0.11-0.59); Monocytes % (auto) 1.3 %; Neutrophils # (auto) 18.69 K/uL (1.4-6.5); Neutrophils % (auto) 92.7 %; Platelet Count 427 K/uL (130-400); RDW Coefficient of Variation 13.2 % (11.5-14.5); RDW Standard Deviation 42.4 fL (36.4-46.3); Red Blood Count 5.37 M/uL (4.7-6.1); White Blood Count 20.17 K/uL (4.8-10.8)
--- NOTE | 2021-10-17 10:01 | XRay Report ---
XR chest 1V portable CLINICAL HISTORY: abd pain TECHNIQUE: Single frontal radiograph of the chest was obtained. Comparison: Comparison is made to chest one view 03/01/2017 FINDINGS: No lines and tubes are seen. The cardiomediastinal silhouette is normal. The lungs are clear. No evid ence of pleural effusion or pneumothorax. IMPRESSION: No acute chest disease. ACT 112: Negative or not required by law. Electronically signed by: Raul Jimenez M.D. 10/17/2021 10:00 AM
[2021-10-17 10:14] LABS: Alanine Aminotransferase 26 (12-78); Albumin Level 4.1 gm/dl (3.4-5.0); Aspartate Aminotransferase 11 U/L (15-37); BUN Creatinine Ratio 15.7 (10-20); Blood Urea Nitrogen 15 mg/dl (7-18); Carbon Dioxide 26 mmol/L (21-32); Chloride 102 mmol/L (98-107); Creatinine Clr Calc Pharmacy 111.3 ml/min; Est GFR (African American) 115.3 ml/min; Est GFR (Non-African American) 99.5 ml/min; Glucose 120 mg/dl (70-99); Lipase 127 U/L (73-393); Magnesium 2.3 mg/dl (1.8-2.4); Potassium 4.6 mmol/L (3.5-5.1); Sodium 138 mmol/L (136-145)
[2021-10-17 10:19] LABS: Alkaline Phosphatase 89 U/L (45-117); Bilirubin,Total 0.7 mg/dl (0.2-1); Globulin 4.1 gm/dl (2.5-4.0); Total Protein 8.2 gm/dl (6.4-8.2); Troponin I < 0.015 ng/ml (0-0.045)
[2021-10-17] MEDS ORDERED: OPTIRAY 320 100ml IV ONE (10:37)
[2021-10-17 11:22] LABS: Influenza A virus by PCR Negative (Neg); Influenza B virus by PCR Negative (Neg); RSV by PCR Negative (Neg)
--- NOTE | 2021-10-17 11:45 | CT Scan Report ---
CT abd pelvis IV con only CLINICAL HISTORY: History of Crohn's disease. Patient reports a flareup starting yesterday. Nausea an d vomiting. Evaluate for obstruction. COMPARISON STUDY: 03/25/2020 CT DOSE: 646.44 mGycm TECHNIQUE: Standard CT of the Abdomen and Pelvis was performed with IV contrast. A dose lowering delfina hnique was utilized adhering to the principles of ALARA. Contrast Volume: Optiray 320, 94 ml. The patient did not receive oral contrast. FINDINGS: Lung base: The lung bases are clear. Abdominal cavity and bowel: Compared to the previous examination, the patient is again status post ri ght hemicolectomy and terminal ileum resection with patent anastomosis. However, there is now patchy mucosal thickening and narrowing of multiple segments of distal ileum as seen on image 236 and on vanessa ge 278. On image 78, there is actually a transition between mildly to moderately dilated proximal sma ll bowel loops and decompressed distal small bowel loops that demonstrate the mucosal thickening. Fin dings are characteristic of recurrence of active Crohn's disease and associated partial small bowel o bstruction. The remainder of the colon is decompressed. No other inflammatory changes, free fluid or free air are seen. There is a small hiatal hernia. Liver: There is homogeneous attenuation of the liver parenchyma. There is no evidence for enhancing m ass lesion. Spleen: There is homogeneous attenuation of the splenic parenchyma. There is no enhancing mass lesion . Pancreas: There is homogeneous attenuation of the pancreatic parenchyma. There is no evidence for mas s lesion or peripancreatic fluid collection. Gall Bladder: The gallbladder is well distended with suspicion of cholelithiasis. Gallbladder ultraso und would be the study of choice for further evaluation. Adrenal glands: The adrenal glands are normal in size and attenuation. There is no evidence for enhan cing mass lesion. Kidneys: There is homogeneous attenuation of the renal parenchyma bilaterally. There is no evidence f or renal calculus or hydronephrosis. There is no evidence for enhancing mass. Bladder: The bladder is within normal limits with no evidence for focal mass, calculus or diverticulu m. : There is no evidence for pelvic mass or adenopathy. There is no evidence for pelvic ascites. Vasculature: There is no evidence for aneurysmal dilatation of the abdominal aorta. Osseous structures: There is no acute osseous pathology. IMPRESSION: 1. Compared to the previous study, there is evidence for recurrence of active Crohn's disease with mu cosal thickening and narrowing of multiple segments of ileum. Associated partial small bowel obstruct ion is present. 2. There is also suspicion of cholelithiasis. ACT 112: Negative or not required by law. Electronically signed by: Darryl Rivas M.D. 10/17/2021 11:43 AM
[2021-10-17 12:23] LABS: Appearance Urine Clear (Clear); Bacteria Urine Automated Negative (Negative); Blood Urine Negative (Negative); Color Urine Dark Yellow; Glucose Urine UA Negative (Negative); Ketones Urine 1+ (Negative); Leukocyte Esterase Urine Negative (Negative); Nitrite Urine Negative (Negative); Protein Urine 1+ (Negative); RBC Urine Automated 0-4 /hpf (0-4); Specific Gravity Urine > 1.045 (1.000-1.030); Urobilinogen Urine Negative (Negative); pH Urine 5.5 (4.5-7.5)
--- NOTE | 2021-10-17 12:28 | History & Physical Report ---
Date of Service October 17, 2021 Assessment & Plan (1) Crohns disease: Plan: - Hx of such, acute flare - Follows with Dr. Davidson as an outpatient, will consult GI - WBC >20 K - Check stool studies, UA appears neg for infection. - No IV abx for now, await to r/o other infections first before starting steroid, methylprednisolone 20 mg q8H - Last Stelara dose was 10/15. - No NGT at this time - pt passing gas, n/v has slightly improved since being medicated in the ER. + Active BS on exam - CT abd reviewed: 1. Compared to the previous study, there is evidence for recurrence of active Crohn's disease with mucosal thickening and narrowing of multiple segments of ileum. Associated partial small bowel obstruction is present. 2. There is also suspicion of cholelithiasis. - Continue supportive care - NPO, ok with few chips of ice for sore/dry throat with vomiting - LR at 80 ml/hr - Consult Gen surg (2) Small bowel obstruction: Plan: - Partial as per imaging at this point - Gen surg consult - Continue fluids and pain management DVT ppx: - teds, scds, ambulatory CODE: Full code Dispo: From home, likely to remain in the hospital x 2 days History of Present Illness Primary Care Provider: Hernesto Thapa DO This is a 46-year-old male with history of Crohn's disease, with past surgical history including abdominal surgery for Crohns 20 to 25 years ago. He presents today with increased abdominal pain x2 days, bloating, distention, and nausea. Hehas previously been placed on steroid so yesterday took leftover Rx of 40 mg of prednisone yesterday, and this morning took an additional 40 mg prednisone however proceeded to vomit afterwards. He has vomited 3 times today, clear bilious emesis, no blood. He reports his abdominal pain is rated a 10 out of 10 at its worst, and has improved some since being in the ER and getting pain medication. Last PO intake was last evening around 6 PM. He ate a small dinner, and had a normal size lunch yesterday. His last bowel movement was this morning and was small. Reports that it was normal in color, no hematochezia, or dark tarry stools. He reports having baseline Crohn's flare once yearly which requires hospitalization, and has been on Stelara for 3 to 4 years. He last took Stelara on Sunday. When asked if it is working well, he is unable to determine, as he does not know what it's like without taking it routinely, but does report time in between hospitalization is well controlled. Social history: History of smoking around age 22, does not drink alcohol, denies illicit drug use. Allergies Allergy/AdvReac Type Severity Reaction Status Date / Time No Known Allergies Allergy Verified 10/17/21 08:54 Home Medications Medication Instructions Recorded Confirmed Type ustekinumab 90 mg/mL subcutaneous 90 mg SUBCUT Q8WK 10/17/21 10/17/21 History syringe (Stelara) Past Med/Surg History Medical History Crohns disease Follows with [facility] (Dr. 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 Musculoskeletal: No joint pain, calf pain, swelling Neurologic: No weakness, numbness/tingling, or balance problems Psychiatric: No anxiety or depression Skin: No rash or itch Physical Exam Physical Exam: General: awake, alert, no apparent distress, lying flat in bed Head: Normocephalic, atraumatic ENT: PERRL, EOMI, no pharyngeal exudate, mucous membranes moist Chest: Clear to auscultation, on room air, no adventitious breath sounds Cardiac: Regular rate and rhythm, no murmur, no JVD, normal peripheral pulses, good capillary refill Abdominal: NABS x 4 quadrants, soft, nondistended, +tender to palpation, increased pain with lower abdominal palpation, no rebound or guarding Extremities: Normal inspection, no peripheral edema or erythema, calfs nontender to palpation Psych: Normal mood and affect Neuro: AAO x 3, strength intact bilaterally and rated 5/5, no motor deficits, speech is clear, no peripheral sensory deficits Results & Data Results & Data ([facility]) Vital Signs (Past 12 Hours) Vital Signs Temp Pulse Pulse Resp BP BP Pulse Ox 10/17/21 12:13 83 18 121/79 95 10/17/21 08:28 36.4 C L 91 H 20 120/89 97 Laboratory Results 10/17/21 10/17/21 10/17/21 Unknown 12:12 09:43 WBC RBC Hgb Hct MCV MCH MCHC RDW Std Deviation RDW Coeff of Nacho Plt Count MPV Immature Gran % (Auto) Neut % (Auto) Lymph % (Auto) Hale % (Auto) Eos % (Auto) Baso % (Auto) Neut # (Auto) Lymph # (Auto) Hale # (Auto) Eos # (Auto) Baso # (Auto) Immature Gran # (Auto) Sodium 138 Potassium 4.6 Chloride 102 Carbon Dioxide 26 Anion Gap 10.0 BUN 15 Creatinine 0.93 Est Cr Clr Drug Dosing 111.3 Est GFR ( Amer) 115.3 Est GFR (Non-Af Amer) 99.5 BUN/Creatinine Ratio 15.7 Glucose 120 H Calcium 10.0 Magnesium 2.3 Total Bilirubin 0.7 AST 11 L ALT 26 Alkaline Phosphatase 89 Troponin I < 0.015 Total Protein 8.2 Albumin 4.1 Globulin 4.1 H Albumin/Globulin Ratio 1.0 Lipase 127 Urine Color Dark Yellow Urine Appearance Clear Urine pH 5.5 Ur Specific [place] > 1.045 H Urine Protein 1+ H Urine Glucose (UA) Negative Urine Ketones 1+ H Urine Blood Negative Urine Nitrite Negative Urine Bilirubin 1+ H Urine Urobilinogen Negative Ur Leukocyte Esterase Negative Urine WBC (Auto) 1-5 Urine RBC (Auto) 0-4 U Hyaline Cast (Auto) 10-30 H U Epithel Cells (Auto) 5-10 H Urine Bacteria (Auto) Negative SARS-CoV-2 (PCR) NEGATIVE Influenza Type A (PCR) Negative Influenza Type B (PCR) Negative RSV (RT-PCR) Negative 10/17/21 09:43 WBC 20.17 H RBC 5.37 Hgb 16.4 Hct 47.2 MCV 87.9 MCH 30.5 MCHC 34.7 RDW Std Deviation 42.4 RDW Coeff of Nacho 13.2 Plt Count 427 H MPV 9.2 Immature Gran % (Auto) 0.1 Neut % (Auto) 92.7 Lymph % (Auto) 5.9 Hale % (Auto) 1.3 Eos % (Auto) 0.0 Baso % (Auto) 0.0 Neut # (Auto) 18.69 H Lymph # (Auto) 1.18 L Hale # (Auto) 0.26 Eos # (Auto) 0.00 Baso # (Auto) 0.01 Immature Gran # (Auto) 0.03 H Sodium Potassium Chloride Carbon Dioxide Anion Gap BUN Creatinine Est Cr Clr Drug Dosing Est GFR ( Amer) Est GFR (Non-Af Amer) BUN/Creatinine Ratio Glucose Calcium Magnesium Total Bilirubin AST ALT Alkaline Phosphatase Troponin I Total Protein Albumin Globulin Albumin/Globulin Ratio Lipase Urine Color Urine Appearance Urine pH Ur Specific [place] Urine Protein Urine Glucose (UA) Urine Ketones Urine Blood Urine Nitrite Urine Bilirubin Urine Urobilinogen Ur Leukocyte Esterase Urine WBC (Auto) Urine RBC (Auto) U Hyaline Cast (Auto) U Epithel Cells (Auto) Urine Bacteria (Auto) SARS-CoV-2 (PCR) Influenza Type A (PCR) Influenza Type B (PCR) RSV (RT-PCR) Diagnostic Findings Abdomen/Pelvis CT 10/17/21 09:40 CT abd pelvis IV con only CLINICAL HISTORY: History of Crohn's disease. Patient reports a flareup starting yesterday. Nausea and vomiting. Evaluate for obstruction. COMPARISON STUDY: 03/25/2020 CT DOSE: 646.44 mGycm TECHNIQUE: Standard CT of the Abdomen and Pelvis was performed with IV contrast. A dose lowering technique was utilized adhering to the principles of ALARA. Contrast Volume: Optiray 320, 94 ml. The patient did not receive oral contrast. FINDINGS: Lung base: The lung bases are clear. Abdominal cavity and bowel: Compared to the previous examination, the patient is again status post right hemicolectomy and terminal ileum resection with patent anastomosis. However, there is now patchy mucosal thickening and narrowing of multiple segments of distal ileum as seen on image 236 and on image 278. On image 78, there is actually a transition between mildly to moderately dilated proximal small bowel loops and decompressed distal small bowel loops that demonstrate the mucosal thickening. Findings are characteristic of recurrence of active Crohn's disease and associated partial small bowel obstruction. The remainder of the colon is decompressed. No other inflammatory changes, free fluid or free air are seen. There is a small hiatal hernia. Liver: There is homogeneous attenuation of the liver parenchyma. There is no evidence for enhancing mass lesion. Spleen: There is homogeneous attenuation of the splenic parenchyma. There is no enhancing mass lesion. Pancreas: There is homogeneous attenuation of the pancreatic parenchyma. There is no evidence for mass lesion or peripancreatic fluid collection. Gall Bladder: The gallbladder is well distended with suspicion of cholelithiasis. Gallbladder ultrasound would be the study of choice for further evaluation. Adrenal glands: The adrenal glands are normal in size and attenuation. There is no evidence for enhancing mass lesion. Kidneys: There is homogeneous attenuation of the renal parenchyma bilaterally. There is no evidence for renal calculus or hydronephrosis. There is no evidence for enhancing mass. Bladder: The bladder is within normal limits with no evidence for focal mass, calculus or diverticulum. : There is no evidence for pelvic mass or adenopathy. There is no evidence for pelvic ascites. Vasculature: There is no evidence for aneurysmal dilatation of the abdominal aorta. Osseous structures: There is no acute osseous pathology. IMPRESSION: 1. Compared to the previous study, there is evidence for recurrence of active Crohn's disease with mucosal thickening and narrowing of multiple segments of ileum. Associated partial small bowel obstruction is present. 2. There is also suspicion of cholelithiasis. ACT 112: Negative or not required by law. Electronically signed by: Darryl Rivas M.D. 10/17/2021 11:43 AM Chest X-Ray 10/17/21 09:40 XR chest 1V portable CLINICAL HISTORY: abd pain TECHNIQUE: Single frontal radiograph of the chest was obtained. Comparison: Comparison is made to chest one view 03/01/2017 FINDINGS: No lines and tubes are seen. The cardiomediastinal silhouette is normal. The lungs are clear. No evidence of pleural effusion or pneumothorax. IMPRESSION: No acute chest disease. ACT 112: Negative or not required by law. Electronically signed by: Raul Jimenez M.D. 10/17/2021 10:00 AM ECG Additional Comments: 17-OCT-2021 10:23:11 [facility]-EDSTAT ROUTINE RETRIEVAL Normal sinus rhythm Normal ECG No previous ECGs available 25mm/s 10mm/mV 150Hz 9.0.9 12SL 241 JENNIFER: 3 Referred by: REFERRED SELF Unconfirmed Vent. rate 84 BPM OR interval 156 ms QRS duration 112 ms QT/QTc 390/460 ms Code Status & VTE Plan Code Status Full code - discussed with the patient at bedside Supervising Physician Co-Signing Physician Notes Attending addendum: The patient was seen and examined in medical floor He has been complaining of abdominal pain, distention and nausea with vomiting for the last 2 to 3 days He has had prior surgery for Crohn's disease with ileocolectomy He was noted to have intestinal obstruction with a flareup of Crohn's disease Denies any fever and/or chills On examination Lying in bed without significant symptoms Hemodynamically stable with pulse around 91 and afebrile Chestclear to auscultate bilaterally HeartS1-S2, regular without any murmur Abdomenmildly distended, soft, tender without rebound and bowel sound present Extremitiesnegative His admission labs, imaging studies reviewed Has small bowel obstruction with flareup of Crohn's disease Has been started on intravenous steroid and n.p.o. for now GI and surgery have been consulted Agree with assessment and plan as outlined above by ASHLEE Helm DR (1) Crohns disease Digestive disease complication type: with intestinal obstruction Gastrointestinal tract location: unspecified location Qualified Code(s): K50.912 - Crohn's disease, unspecified, with intestinal obstruction
[2021-10-17 12:40] LABS: Bilirubin Urine 1+ (Negative)
--- NOTE | 2021-10-17 13:18 | Gastrointestinal Consultation ---
Date of Consultation October 17, 2021 Assessment & Plan (1) Exacerbation of Crohn's disease: (2) Small bowel obstruction: Pt is a 46 y/o male w hx of Crohn's disease, hx of fistula formation and s/p ileocolectomy 25 yrs ago and currently maintained w Stelara. He presented w abd pain, n/v symptoms and noted to have mucosal thickening and narrowing of multiple segments of ileum, partial small bowel obstruction on CT abd/pelvis. On exam, soft abd, BS present on all 4 quadrants, he is still passing small amts of flatus - NPO - IVF support - Given leukocytosis, r/o infections, and if cultures are negative will start Methylprednisolone 20mg q8hrs - Check ESR, CRP - KUB tomorrow AM - Stool cx and Cdiff - Consult surgery Supervising Physician Co-Signing Physician Notes 46 yo male with a history of known crohn's disease with ileo-colonic anastomosis in the transverses colon on outpt stelara (last dose this past weekend) was getting it stephy every 8 weeks, admitted now with abdominal pain, concerning for ? flare versus partial sbo per imaging. He endorses his pain was 8-9/10 on arrival, now down to 2-3/10. PE - surgical scars on his abdomen, soft nt nd Labs reviewed Agree with further plan of care as above. History of Present Illness Reason for Consultation: Partial SBO, hx of Crohn's disease, suspect flare Requesting Physician: Dr. Elfego Miguel Attending Physician: Dr. Nancie Nixon History of Present Illness Pt is a 46 y/o w hx of Crohn's disease, complicated by hx of fistula formation, ileocolonic resection with ileocolonic anastomosis 25 yrs ago, presented to the ED w c/o generalized abd pain, n/v w/o hematemesis or coffee ground emesis for the last few days. He denies associated fever, chills, CP, SOB. He was having small amts of stools up till this morning and even less flatus. No rectal bleeding. He reports that the last time he's had these symptoms were when he had Crohn's flare was in March and usually he'll improve with steroids. He is currently on Stelara injections, last dose was 2 days ago. He denies new meds, diet changes, sick contact. On eval, noted he has leukocytosis, no anemia, chem panel normal w normal LFTs and lipase CT abd/pelvis w IV contrast: 1. Compared to the previous study, there is evidence for recurrence of active Crohn's disease with mucosal thickening and narrowing of multiple segments of ileum. Associated partial small bowel obstruction is present. 2. There is also suspicion of cholelithiasis. CXR: no acute disease Allergies Allergy/AdvReac Type Severity Reaction Status Date / Time No Known Allergies Allergy Verified 10/17/21 08:54 Home Medications Medication Instructions Recorded Confirmed Type ustekinumab 90 mg/mL subcutaneous mg SUBCUT 10/17/21 History syringe ([facility]) Patient History Medical History Crohns disease Follows with [facility] (Dr. 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: No Beliefs That Will Affect Care: None Current Living Situation: Alone Feels Safe at Home: Yes Assistive Devices: None Review of Systems Review of Systems: All systems reviewed & are unremarkable except as noted in HPI & below Physical Exam Constitutional: WD/WN, vitals as above well groomed, cooperative and comfortable Eyes: PERRL, conjunctivae normal, anicteric sclerae ENMT: external ear and nose normal, oropharynx normal Respiratory: normal respiratory effort, lungs clear to auscultation Cardiovascular: RRR, no murmur, no edema Gastrointestinal (Abdomen): Soft, + BS, non tender Skin: no rashes, warm and dry no jaundice Psychiatric: A+Ox3, euthymic affect Lymphatic: no lymphedema Results & Data ([facility]) Vital Signs (Past 12 Hours) Vital Signs Temp Pulse Pulse Resp BP BP Pulse Ox 10/17/21 12:13 83 18 121/79 95 10/17/21 08:28 36.4 C L 91 H 20 120/89 97
[2021-10-17] MEDS ORDERED: ONDANSETRON INJ 2 MG/ML 2 ML VIAL IV PRN (14:23)
[2021-10-17] MEDS ORDERED: ACETAMINOPHEN 325 MG TAB PO PRN (14:23)
[2021-10-17] MEDS: LACTATED RINGER'S 1,000 ML IV SCH (14:36)
--- NOTE | 2021-10-17 15:06 | Surgery Consultation ---
Date of Consultation October 17, 2021 Assessment & Plan (1) Exacerbation of Crohn's disease: (2) Small bowel obstruction: 46 year-old male with history of Crohn's disease who presented to ED with abdominal pain, nausea, and vomiting. CT scan showing active Crohn's flare with partial SBO. Now passing gas and pain much improved. NO vomiting. Leukocytosis of 20K. Afebrile. Abdomen is soft, tender but no peritonitis or rigidity. Plan: No acute surgical indication at this time Continue conservative measures: NPO for bowel rest, IV Fluids, pain management as needed monitor wbc steroids per medicine/GI team will continue to monitor Dr. Vera has seen and examined pt, agrees with above. History of Present Illness Reason for Consultation: Partial SBO Crohn's flare Requesting Physician: Rebekah Messina PA-C Attending Physician: Ileana Keating MD History of Present Illness Dejuan is a 46 year-old male with history of Crohn's disease who presented to ED with abdominal pain, nausea, and vomiting. History of ileocolectomy 25 years ago in [place]. Had some abdominal pain for a few days and decided to take oral prednisone at home and then again this morning but vomited. Last bowel movement was yesterday or this morning. Passing gas. States his abdominal pain is much better now. Allergies Allergy/AdvReac Type Severity Reaction Status Date / Time No Known Allergies Allergy Verified 10/17/21 08:54 Home Medications Medication Instructions Recorded Confirmed Type ustekinumab 90 mg/mL subcutaneous 90 mg SUBCUT Q8WK 10/17/21 10/17/21 History syringe (Stelara) Patient History Medical History Crohns disease Follows with [facility] (Dr. Perales) - maintained on Stelara Surgical History History of appendectomy History of bowel resection 18 inches ileocolonic resection - 1996 ([place]) Social History Smoking Status: Never smoker Second Hand Exposure: No; Hx Alcohol Use: No Hx Substance Use: No Preferred Language: Ecuadorean Communication Ability: Effective Nuclear Instructor Required: No Beliefs That Will Affect Care: None Current Living Situation: Spouse and Family Other Information That Helps Us Care for You: No Feels Safe at Home: Yes Safety Concerns: Feels Safe At This Time Assistive Devices: Contacts Physical Exam Constitutional: WD/WN, vitals as above no acute distress and not ill appearing Respiratory: normal respiratory effort; no respiratory distress and no labored breathing Gastrointestinal (Abdomen): Inspection/Auscultation: abdomen normal to inspection and + abdominal surgical scar (midline laparotomy scar present); abdomen not distended Percussion/Palpation: + abdomen tender (generalized tenderness) and abdomen soft; no guarding and abdomen not rigid Skin: no rashes, warm and dry Psychiatric: A+Ox3, euthymic affect Results & Data ([facility]) Vital Signs (Past 12 Hours) Vital Signs Temp Pulse Pulse Resp BP BP Pulse Ox 10/17/21 14:25 37.4 C 91 H 20 104/69 97 10/17/21 12:13 83 18 121/79 95 10/17/21 08:28 36.4 C L 91 H 20 120/89 97 Laboratory Results 10/17/21 10/17/21 10/17/21 Range/Units Unknown 13:56 12:12 WBC (4.8-10.8) K/uL RBC (4.7-6.1) M/uL Hgb (14.0-18.0) g/dL Hct (42-52) % MCV (80-100) fL MCH (25-34) pg MCHC (32-36) g/dL RDW Std Deviation (36.4-46.3) fL RDW Coeff of Nacho (11.5-14.5) % Plt Count (130-400) K/uL MPV (7.4-10.4) fL Immature Gran % (Auto) % Neut % (Auto) % Lymph % (Auto) % Barber % (Auto) % Eos % (Auto) % Baso % (Auto) % Neut # (Auto) (1.4-6.5) K/uL Lymph # (Auto) (1.2-3.4) K/uL Barber # (Auto) (0.11-0.59) K/uL Eos # (Auto) (0-0.5) K/uL Baso # (Auto) (0-0.2) K/uL Immature Gran # (Auto) (0.00-0.02) K/uL ESR (0-15) mm/hr Sodium (136-145) mmol/L Potassium (3.5-5.1) mmol/L Chloride (98-107) mmol/L Carbon Dioxide (21-32) mmol/L Anion Gap (3-11) BUN (7-18) mg/dl Creatinine (0.6-1.4) mg/dl Est Cr Clr Drug Dosing ml/min Est GFR ( Amer) ml/min Est GFR (Non-Af Amer) ml/min BUN/Creatinine Ratio (10-20) Glucose (70-99) mg/dl Lactate 1.5 (0.4-2.0) mmol/L Calcium (8.5-10.1) mg/dl Magnesium (1.8-2.4) mg/dl Total Bilirubin (0.2-1) mg/dl AST (15-37) U/L ALT (12-78) Alkaline Phosphatase (45-117) U/L Troponin I (0-0.045) ng/ml C-Reactive Protein (0-0.29) mg/dl Total Protein (6.4-8.2) gm/dl Albumin (3.4-5.0) gm/dl Globulin (2.5-4.0) gm/dl Albumin/Globulin Ratio (0.9-2) Lipase (73-393) U/L Urine Color Dark Yellow Urine Appearance Clear (Clear) Urine pH 5.5 (4.5-7.5) Ur Specific Imperial > 1.045 H (1.000-1.030) Urine Protein 1+ H (Negative) Urine Glucose (UA) Negative (Negative) Urine Ketones 1+ H (Negative) Urine Blood Negative (Negative) Urine Nitrite Negative (Negative) Urine Bilirubin 1+ H (Negative) Urine Urobilinogen Negative (Negative) Ur Leukocyte Esterase Negative (Negative) Urine WBC (Auto) 1-5 (0-5) /hpf Urine RBC (Auto) 0-4 (0-4) /hpf U Hyaline Cast (Auto) 10-30 H (0-5) /lpf U Epithel Cells (Auto) 5-10 H (0-5) /lpf Urine Bacteria (Auto) Negative (Negative) SARS-CoV-2 (PCR) NEGATIVE (Negative) Influenza Type A (PCR) Negative (Neg) Influenza Type B (PCR) Negative (Neg) RSV (RT-PCR) Negative (Neg) 10/17/21 10/17/21 10/17/21 Range/Units 09:49 09:49 09:43 WBC (4.8-10.8) K/uL RBC (4.7-6.1) M/uL Hgb (14.0-18.0) g/dL Hct (42-52) % MCV (80-100) fL MCH (25-34) pg MCHC (32-36) g/dL RDW Std Deviation (36.4-46.3) fL RDW Coeff of Nacho (11.5-14.5) % Plt Count (130-400) K/uL MPV (7.4-10.4) fL Immature Gran % (Auto) % Neut % (Auto) % Lymph % (Auto) % Barber % (Auto) % Eos % (Auto) % Baso % (Auto) % Neut # (Auto) (1.4-6.5) K/uL Lymph # (Auto) (1.2-3.4) K/uL Barber # (Auto) (0.11-0.59) K/uL Eos # (Auto) (0-0.5) K/uL Baso # (Auto) (0-0.2) K/uL Immature Gran # (Auto) (0.00-0.02) K/uL ESR 23 H (0-15) mm/hr Sodium 138 (136-145) mmol/L Potassium 4.6 (3.5-5.1) mmol/L Chloride 102 (98-107) mmol/L Carbon Dioxide 26 (21-32) mmol/L Anion Gap 10.0 (3-11) BUN 15 (7-18) mg/dl Creatinine 0.93 (0.6-1.4) mg/dl Est Cr Clr Drug Dosing 111.3 ml/min Est GFR ( Amer) 115.3 ml/min Est GFR (Non-Af Amer) 99.5 ml/min BUN/Creatinine Ratio 15.7 (10-20) Glucose 120 H (70-99) mg/dl Lactate (0.4-2.0) mmol/L Calcium 10.0 (8.5-10.1) mg/dl Magnesium 2.3 (1.8-2.4) mg/dl Total Bilirubin 0.7 (0.2-1) mg/dl AST 11 L (15-37) U/L ALT 26 (12-78) Alkaline Phosphatase 89 (45-117) U/L Troponin I < 0.015 (0-0.045) ng/ml C-Reactive Protein 4.01 H (0-0.29) mg/dl Total Protein 8.2 (6.4-8.2) gm/dl Albumin 4.1 (3.4-5.0) gm/dl Globulin 4.1 H (2.5-4.0) gm/dl Albumin/Globulin Ratio 1.0 (0.9-2) Lipase 127 (73-393) U/L Urine Color Urine Appearance (Clear) Urine pH (4.5-7.5) Ur Specific Imperial (1.000-1.030) Urine Protein (Negative) Urine Glucose (UA) (Negative) Urine Ketones (Negative) Urine Blood (Negative) Urine Nitrite (Negative) Urine Bilirubin (Negative) Urine Urobilinogen (Negative) Ur Leukocyte Esterase (Negative) Urine WBC (Auto) (0-5) /hpf Urine RBC (Auto) (0-4) /hpf U Hyaline Cast (Auto) (0-5) /lpf U Epithel Cells (Auto) (0-5) /lpf Urine Bacteria (Auto) (Negative) SARS-CoV-2 (PCR) (Negative) Influenza Type A (PCR) (Neg) Influenza Type B (PCR) (Neg) RSV (RT-PCR) (Neg) 10/17/21 Range/Units 09:43 WBC 20.17 H (4.8-10.8) K/uL RBC 5.37 (4.7-6.1) M/uL Hgb 16.4 (14.0-18.0) g/dL Hct 47.2 (42-52) % MCV 87.9 (80-100) fL MCH 30.5 (25-34) pg MCHC 34.7 (32-36) g/dL RDW Std Deviation 42.4 (36.4-46.3) fL RDW Coeff of Nacho 13.2 (11.5-14.5) % Plt Count 427 H (130-400) K/uL MPV 9.2 (7.4-10.4) fL Immature Gran % (Auto) 0.1 % Neut % (Auto) 92.7 % Lymph % (Auto) 5.9 % Barber % (Auto) 1.3 % Eos % (Auto) 0.0 % Baso % (Auto) 0.0 % Neut # (Auto) 18.69 H (1.4-6.5) K/uL Lymph # (Auto) 1.18 L (1.2-3.4) K/uL Barber # (Auto) 0.26 (0.11-0.59) K/uL Eos # (Auto) 0.00 (0-0.5) K/uL Baso # (Auto) 0.01 (0-0.2) K/uL Immature Gran # (Auto) 0.03 H (0.00-0.02) K/uL ESR (0-15) mm/hr Sodium (136-145) mmol/L Potassium (3.5-5.1) mmol/L Chloride (98-107) mmol/L Carbon Dioxide (21-32) mmol/L Anion Gap (3-11) BUN (7-18) mg/dl Creatinine (0.6-1.4) mg/dl Est Cr Clr Drug Dosing ml/min Est GFR ( Amer) ml/min Est GFR (Non-Af Amer) ml/min BUN/Creatinine Ratio (10-20) Glucose (70-99) mg/dl Lactate (0.4-2.0) mmol/L Calcium (8.5-10.1) mg/dl Magnesium (1.8-2.4) mg/dl Total Bilirubin (0.2-1) mg/dl AST (15-37) U/L ALT (12-78) Alkaline Phosphatase (45-117) U/L Troponin I (0-0.045) ng/ml C-Reactive Protein (0-0.29) mg/dl Total Protein (6.4-8.2) gm/dl Albumin (3.4-5.0) gm/dl Globulin (2.5-4.0) gm/dl Albumin/Globulin Ratio (0.9-2) Lipase (73-393) U/L Urine Color Urine Appearance (Clear) Urine pH (4.5-7.5) Ur Specific Imperial (1.000-1.030) Urine Protein (Negative) Urine Glucose (UA) (Negative) Urine Ketones (Negative) Urine Blood (Negative) Urine Nitrite (Negative) Urine Bilirubin (Negative) Urine Urobilinogen (Negative) Ur Leukocyte Esterase (Negative) Urine WBC (Auto) (0-5) /hpf Urine RBC (Auto) (0-4) /hpf U Hyaline Cast (Auto) (0-5) /lpf U Epithel Cells (Auto) (0-5) /lpf Urine Bacteria (Auto) (Negative) SARS-CoV-2 (PCR) (Negative) Influenza Type A (PCR) (Neg) Influenza Type B (PCR) (Neg) RSV (RT-PCR) (Neg) Diagnostic Findings CT abd pelvis IV con only CLINICAL HISTORY: History of Crohn's disease. Patient reports a flareup starting yesterday. Nausea and vomiting. Evaluate for obstruction. COMPARISON STUDY: 03/25/2020 CT DOSE: 646.44 mGycm TECHNIQUE: Standard CT of the Abdomen and Pelvis was performed with IV contrast. A dose lowering technique was utilized adhering to the principles of ALARA. Contrast Volume: Optiray 320, 94 ml. The patient did not receive oral contrast. FINDINGS: Lung base: The lung bases are clear. Abdominal cavity and bowel: Compared to the previous examination, the patient is again status post right hemicolectomy and terminal ileum resection with patent anastomosis. However, there is now patchy mucosal thickening and narrowing of multiple segments of distal ileum as seen on image 236 and on image 278. On image 78, there is actually a transition between mildly to moderately dilated proximal small bowel loops and decompressed distal small bowel loops that demonstrate the mucosal thickening. Findings are characteristic of recurrence of active Crohn's disease and associated partial small bowel obstruction. The remainder of the colon is decompressed. No other inflammatory changes, free fluid or free air are seen. There is a small hiatal hernia. Liver: There is homogeneous attenuation of the liver parenchyma. There is no evidence for enhancing mass lesion. Spleen: There is homogeneous attenuation of the splenic parenchyma. There is no enhancing mass lesion. Pancreas: There is homogeneous attenuation of the pancreatic parenchyma. There is no evidence for mass lesion or peripancreatic fluid collection. Gall Bladder: The gallbladder is well distended with suspicion of cholelithiasis. Gallbladder ultrasound would be the study of choice for further evaluation. Adrenal glands: The adrenal glands are normal in size and attenuation. There is no evidence for enhancing mass lesion. Kidneys: There is homogeneous attenuation of the renal parenchyma bilaterally. There is no evidence for renal calculus or hydronephrosis. There is no evidence for enhancing mass. Bladder: The bladder is within normal limits with no evidence for focal mass, calculus or diverticulum. : There is no evidence for pelvic mass or adenopathy. There is no evidence for pelvic ascites. Vasculature: There is no evidence for aneurysmal dilatation of the abdominal aorta. Osseous structures: There is no acute osseous pathology. IMPRESSION: 1. Compared to the previous study, there is evidence for recurrence of active Crohn's disease with mucosal thickening and narrowing of multiple segments of ileum. Associated partial small bowel obstruction is present. 2. There is also suspicion of cholelithiasis.
--- NOTE | 2021-10-17 16:00 | Electrocardiogram Report ---
Test Reason : Blood Pressure : / mmHG Vent. Rate : 084 BPM Atrial Rate : 084 BPM P-R Int : 156 ms QRS Dur : 112 ms QT Int : 390 ms P-R-T Axes : 071 078 047 degrees QTc Int : 460 ms Normal sinus rhythm Normal ECG No previous ECGs available Confirmed by Jesus Manuel Epps ([id number]) on 10/17/2021 4:00:23 PM Referred By: REFERRED SELF Confirmed By:Jesus Manuel Epps
[2021-10-17 18:32] LABS: SARS CoV2 RNA(COVID-19) InHosp NEGATIVE (Negative)
[2021-10-17] MEDS: HEPARIN SOD 5,000 UNIT/0.5 ML VIAL SQ SCH (21:37)
[2021-10-17 22:34] VITALS: TEMP 97.9
[2021-10-18] MEDS: LACTATED RINGER'S 1,000 ML IV SCH (02:33)
[2021-10-18 07:34] VITALS: BP 99/61; PULSE 75; O2SAT 99
[2021-10-18] MEDS: HEPARIN SOD 5,000 UNIT/0.5 ML VIAL SQ SCH (07:57)
[2021-10-18 08:13] LABS: Hematocrit (blood only) 41.1 % (42-52); Hemoglobin 13.5 g/dL (14.0-18.0); Mean Corpuscular Hemoglobin 29.5 pg (25-34); Mean Corpuscular Hgb Conc 32.8 g/dL (32-36); Mean Corpuscular Volume 89.9 fL (80-100); Mean Platelet Volume 9.1 fL (7.4-10.4); Platelet Count 355 K/uL (130-400); RDW Coefficient of Variation 13.5 % (11.5-14.5); RDW Standard Deviation 44.4 fL (36.4-46.3); Red Blood Count 4.57 M/uL (4.7-6.1); White Blood Count 7.08 K/uL (4.8-10.8)
[2021-10-18 08:34] LABS: Albumin Level 3.1 gm/dl (3.4-5.0); BUN Creatinine Ratio 21.2 (10-20); Calcium 8.6 mg/dl (8.5-10.1); Creatinine Clr Calc Pharmacy 127.7 ml/min; Est GFR (African American) 125.3 ml/min; Est GFR (Non-African American) 108.1 ml/min; Potassium 4.4 mmol/L (3.5-5.1)
[2021-10-18 08:38] LABS: Adenovirus F 40/41 PCR Not Detected (NotDetected); Astrovirus PCR Not Detected (NotDetected); Campylobacter PCR Not Detected (NotDetected); Clostridium diff Toxin A/B PCR Not Detected (NotDetected); Cryptosporidium PCR Not Detected (NotDetected); Cyclospora cayetanensis PCR Not Detected (NotDetected); Entamoeba histolytica PCR Not Detected (NotDetected); Enteroaggregative E.coli(EAEC) Not Detected (NotDetected); Enteropathogenic E.coli (EPEC) Not Detected (NotDetected); Enterotoxigenic E.coli (ETEC) Not Detected (NotDetected); Giardia lamblia PCR Not Detected (NotDetected); Norovirus GI/GII PCR Not Detected (NotDetected); Plesiomonas shigelloides PCR Not Detected (NotDetected); Rotavirus A PCR Not Detected (NotDetected); Salmonella PCR Not Detected (NotDetected); Sapovirus PCR Not Detected (NotDetected); Shiga-like Toxin E.coli (STEC) Not Detected (NotDetected); Shigella/Enteroinvasive E.coli Not Detected (NotDetected); Vibrio cholerae PCR Not Detected (NotDetected); Vibrio species PCR Not Detected (NotDetected); Yersinia enterocolitica PCR Not Detected (NotDetected)
[2021-10-18 08:59] LABS: Globulin 3.2 gm/dl (2.5-4.0); Total Protein 6.3 gm/dl (6.4-8.2)
--- NOTE | 2021-10-18 09:05 | XRay Report ---
XR KUB/Abdomen 1 view CLINICAL HISTORY: re-eval partial SBO TECHNIQUE: 1 view of the abdomen was obtained. Comparison: Comparison is made to abdomen radiograph 03/03/[address] abdomen pelvis 10/17/2021 FINDINGS: Lung bases are unremarkable. The osseous structures are grossly unremarkable. Prominent distended loo ps of small bowel are seen measuring up to 36 mm in diameter. Small stool burden is seen. IMPRESSION: Prominent subcentimeter loops of small bowel are seen compatible with continued partial small bowel o bstruction. ACT 112: Negative or not required by law. Electronically signed by: Raul Jimenez M.D. 10/18/2021 9:03 AM
--- NOTE | 2021-10-18 10:35 | Gastroenterology Progress Note ---
Date of Service October 18, 2021 Assessment & Plan (1) Exacerbation of Crohn's disease: (2) Small bowel obstruction: Plan: Pt is a 46 y/o male w hx of Crohn's disease, hx of fistula formation and s/p ileocolectomy 25 yrs ago [facility] He presented w abd pain, n/v symptoms and noted to have mucosal thickening and narrowing of multiple segments of ileum, partial small bowel obstruction on CT abd/pelvis. On exam, soft abd, BS present on all 4 quadrants, he is still passing small amts of flatus KUB reviewed which showed persistent SBO but he is passing flatus and stools, benign exam. WBC normalized, stool studies negative for infection - Start FL diet, advance as tolerated to soft, low fiber diet eventually - Methylprednisolone 20mg IV Q8hrs while inpt - If tolerated diet well today, no contraindication for DC home today with Prednisone taper: 40mg daily x 7 days, 30mg daily x 7 days, 20mg daily x 7 days, 15mg daily x7 days, 10 daily x 7 days, 5mg daily x 7 days then stop. - Surgery not planning on surgical intervention - Pls recall GI prn Admission and Anticipated Discharge Date Admission Date: October 17, 2021 Supervising Physician Co-Signing Physician Notes Patient much improved this am. He is overall feeling better. PE - well nourished male in nad, HEENT- perrla, abd soft nt nd, midline scars Labs wbc count has improved Agree with further plan of care as above. Subjective Pt had KUB this AM which showed persistent SBO but he later on had stools and passing flatus. No fever, chills, no n/v. Review of Systems Review of Systems: All systems reviewed & are unremarkable except as noted in HPI & below Physical Exam Constitutional: WD/WN, vitals as above well groomed, cooperative and comfortable Eyes: PERRL, conjunctivae normal, anicteric sclerae ENMT: external ear and nose normal, oropharynx normal Respiratory: normal respiratory effort, lungs clear to auscultation Cardiovascular: RRR, no murmur, no edema Gastrointestinal (Abdomen): BS present, non tender, soft. Skin: no rashes, warm and dry no jaundice Psychiatric: A+Ox3, euthymic affect Lymphatic: no lymphedema Results & Data ([facility]) Vital Signs (Past 12 Hours) Vital Signs Temp Pulse Resp BP Pulse Ox 10/18/21 07:33 36.6 C 75 18 99/61 L 99 10/17/21 22:33 36.6 C 82 18 91/56 L 96
--- NOTE | 2021-10-18 10:39 | Hospitalist Progress Note ---
Date of Service October 18, 2021 Assessment & Plan (1) Crohns disease: (2) Small bowel obstruction: Plan: This is a 46-year-old male with history of Crohn's disease, history of fistula formation and status post ileocolectomy 25 years ago and is currently maintained on Stelara. He presented to ED on 10/17 secondary to abdominal pain, nausea and vomiting. CT abdomen pelvis noted to have mucosal thickening and narrowing of multiple segments of ileum, partial small bowel obstruction. White blood cell count significantly improved. Admitted to med surg Pt established with Dr. Davidson as an outpatient Leukocytosis resolved Stool cultures negative Solu-Medrol 20 mg IV every 8 Diet advance to full liquid appreciate GI and Surg recommendations KUB: Prominent subcentimeter loops of small bowel are seen compatible with continued partial small bowel obstruction. Will d/c ivf once current order completed as he is tolerating liquids DVT ppx: Heparin Q12h Dispo: pt remains admitted, will slowly advance diet, likely to remain hospital ized today, will re assess tomorrow for possible d/c when sx resolve CODE: Full code PCP: Dr. Hernesto Thapa Pt was seen and examined in collaboration with Dr. Henry, please see addendum The chart was completed utilizing [employer] Speech voice recognition software. Grammatical errors, random word insertions, pronoun errors, and incomplete sentences are an occasional consequence of this system due to software limitations, ambient noise, and hardware issues. Any formal questions or concerns about the content, text, or information contained within the body of this dictation should be directly addressed to the provider for clarification. Admission and Anticipated Discharge Date Admission Date: October 17, 2021 Supervising Physician Co-Signing Physician Notes 46-year-old gentleman with history of Crohn's disease with past surgical history of abdominal surgery for Crohn's 2024 years ago who presented 10/17 to our ED with complaint of abdominal pain for 2 days [employer] associated with bloating, 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 He was admitted with acute flare of Crohn's disease and small bowel obstructionpartial. GI and surgery evaluated the patient while inpatient. GI recommended steroid, no surgical intervention needed at patient was moving bowel on the day of discharge. Patient stated feeling well after having bowel movement and also stated improvement in his belly pain. On examination, no belly pain noted, normal bowel sounds appreciated. Rest of the examinations as above. Patient will need to follow-up with his PCP, GI as an outpatient. I have seen and examined the patient and have discussed the case with the provider above. I agree with the assessment and plan as stated. Subjective Patient was seen and examined in room 376-1. Follow-up partial small bowel obstruction in setting of Crohn's disease. He feels well this morning. He is tolerating clear liquids. He denies fever, chills, sweats, lightheadedness, dizziness, chest pain, shortness of breath, nausea, vomiting, abdominal pain. He is passing small amount of flatus and did have a small BM this morning. Review of Systems Review of Systems: All systems reviewed & are unremarkable except as noted in HPI & below Physical Exam Physical Exam: Gen: WD/WN, NAD, A&O x3 HEENT: Normocephalic, atraumatic, conjunctivae moist, sclerae anicteric, mucous membranes moist. Lung: Clear to Auscultation bilaterally, no wheezes/rales/rhonchi Heart: Regular rate, regular rhythm, no murmurs, rubs, or gallops Abdomen: Soft, minimal distention, mild tenderness to light and deep palpation in left lower quadrant +BS x 4, surgical scars on abd Extremities: No edema Skin: Warm, no rash, negative turgor. Results & Data Results & Data ([facility]) Vital Signs (Past 12 Hours) Vital Signs Temp Pulse Resp BP Pulse Ox 10/18/21 07:33 36.6 C 75 18 99/61 L 99 10/17/21 22:33 36.6 C 82 18 91/56 L 96 Laboratory Results Short CBC 10/18/21 Range/Units 07:39 WBC 7.08 D (4.8-10.8) K/uL Hgb 13.5 L (14.0-18.0) g/dL Hct 41.1 L (42-52) % Plt Count 355 (130-400) K/uL BMP 10/18/21 07:39 Sodium 142 Potassium 4.4 Chloride 108 H Carbon Dioxide 29 BUN 17 Creatinine 0.81 Glucose 82 Calcium 8.6 Liver Function 10/18/21 Range/Units 07:39 Total Bilirubin 1.0 (0.2-1) mg/dl AST 6 L (15-37) U/L ALT 19 (12-78) Alkaline Phosphatase 62 (45-117) U/L Albumin 3.1 L (3.4-5.0) gm/dl Urine 10/17/21 Range/Units 12:12 Urine Color Dark Yellow Urine Appearance Clear (Clear) Urine pH 5.5 (4.5-7.5) Ur Specific Wilmot > 1.045 H (1.000-1.030) Urine Protein 1+ H (Negative) Urine Glucose (UA) Negative (Negative) Diagnostic Findings KUB X-Ray 10/18/21 07:00 XR KUB/Abdomen 1 view CLINICAL HISTORY: re-eval partial SBO TECHNIQUE: 1 view of the abdomen was obtained. Comparison: Comparison is made to abdomen radiograph 03/03/[address] abdomen pelvis 10/17/2021 FINDINGS: Lung bases are unremarkable. The osseous structures are grossly unremarkable. Prominent distended loops of small bowel are seen measuring up to 36 mm in diameter. Small stool burden is seen. IMPRESSION: Prominent subcentimeter loops of small bowel are seen compatible with continued partial small bowel obstruction. ACT 112: Negative or not required by law. Electronically signed by: Raul Jimenez M.D. 10/18/2021 9:03 AM Medications Administered Current Inpatient Medications Acetaminophen (Acetaminophen 325 Mg Tab) 650 mg PO Q4H PRN PRN Reason: Moderate Pain Stop: 11/16/21 14:22 Last Admin: 10/17/21 16:34 Dose: 650 mg Documented by: Heparin Sodium (Porcine) (Heparin Sod 5,000 Unit/0.5 Ml Vial) 5,000 units SQ Q12 [facility] Stop: 11/16/21 20:59 Last Admin: 10/18/21 07:57 Dose: 5,000 units Documented by: Lactated Ringer's (Lr) 1,000 mls @ 80 mls/hr IV .[id number] [facility] Stop: 10/18/21 15:22 Last Infusion: 10/18/21 06:25 Dose: 80 mls/hr Documented by: Methylprednisolone 20 mg/ (Syringe) 0.32 mls @ 1.5 mls/min IV Q8 [facility] Stop: 11/17/21 13:59 Ondansetron HCl (Ondansetron Inj 2 Mg/Ml 2 Ml Vial) 4 mg IV Q4H PRN PRN Reason: Nausea And Vomiting Stop: 11/16/21 14:22 (1) Crohns disease Digestive disease complication type: with intestinal obstruction Gastrointestinal tract location: unspecified location Qualified Code(s): K50.912 - Crohn's disease, unspecified, with intestinal obstruction
--- NOTE | 2021-10-18 12:48 | Surgery Progress Note ---
Date of Service October 18, 2021 Assessment & Plan (1) Exacerbation of Crohn's disease: (2) Small bowel obstruction: Plan: 46 year-old male with history of Crohn's disease who presented to ED with abdominal pain, nausea, and vomiting. CT scan showing active Crohn's flare with partial SBO. -afebrile, leukocytosis resolved - stool studies with no infection - + bowel function - benign abdomen on exam Plan: No acute surgical indication at this time okay to advance diet to clears or full liquids steroids per medicine/GI team Dr. Vera has seen patient and agrees with above. Admission and Anticipated Discharge Date Admission Date: October 17, 2021 Subjective feeling much better this morning no abdominal pain passing gas today and had formed bowel movement this morning no nausea or vomiting Physical Exam Constitutional: WD/WN, vitals as above no acute distress and not ill appearing Respiratory: normal respiratory effort; no respiratory distress Gastrointestinal (Abdomen): Inspection/Auscultation: abdomen normal to inspection, normal bowel sounds and + abdominal surgical scar (midline laparotomy scar); abdomen not distended Percussion/Palpation: abdomen soft; abdomen nontender, no guarding and abdomen not rigid Skin: no rashes, warm and dry Psychiatric: A+Ox3, euthymic affect Results & Data ([facility]) Vital Signs (Past 12 Hours) Vital Signs Temp Pulse Resp BP Pulse Ox 10/18/21 07:33 36.6 C 75 18 99/61 L 99 Laboratory Results 10/18/21 10/18/21 10/18/21 Range/Units 09:16 07:39 07:39 WBC 7.08 D (4.8-10.8) K/uL RBC 4.57 L (4.7-6.1) M/uL Hgb 13.5 L (14.0-18.0) g/dL Hct 41.1 L (42-52) % MCV 89.9 (80-100) fL MCH 29.5 (25-34) pg MCHC 32.8 (32-36) g/dL RDW Std Deviation 44.4 (36.4-46.3) fL RDW Coeff of Nacho 13.5 (11.5-14.5) % Plt Count 355 (130-400) K/uL MPV 9.1 (7.4-10.4) fL ESR (0-15) mm/hr Sodium 142 (136-145) mmol/L Potassium 4.4 (3.5-5.1) mmol/L Chloride 108 H (98-107) mmol/L Carbon Dioxide 29 (21-32) mmol/L Anion Gap 5.0 (3-11) BUN 17 (7-18) mg/dl Creatinine 0.81 (0.6-1.4) mg/dl Est Cr Clr Drug Dosing 127.7 ml/min Est GFR ( Amer) 125.3 ml/min Est GFR (Non-Af Amer) 108.1 ml/min BUN/Creatinine Ratio 21.2 H (10-20) Glucose 82 (70-99) mg/dl Lactate (0.4-2.0) mmol/L Calcium 8.6 (8.5-10.1) mg/dl Total Bilirubin 1.0 (0.2-1) mg/dl AST 6 L (15-37) U/L ALT 19 (12-78) Alkaline Phosphatase 62 (45-117) U/L C-Reactive Protein (0-0.29) mg/dl Total Protein 6.3 L D (6.4-8.2) gm/dl Albumin 3.1 L (3.4-5.0) gm/dl Globulin 3.2 (2.5-4.0) gm/dl Albumin/Globulin Ratio 1.0 (0.9-2) Procalcitonin < 0.05 (0-0.5) ng/ml Stl C. cayetanensis PCR (NotDetected) Stool Rotavirus A PCR (NotDetected) Stl Adenov F 40/41 PCR (NotDetected) Stool Astrovirus (PCR) (NotDetected) Stool Campylobacter PCR (NotDetected) Stl C. diff Tox B Gene Stl C. diff Tox A/B PCR (NotDetected) Stool Cryptosporidium PCR (NotDetected) Stl E.coli Shiga Tox PCR (NotDetected) Stl Enterotoxigenic E PCR (NotDetected) Stool EPEC (PCR) (NotDetected) Stool EAEC (PCR) (NotDetected) Stl E. histolytica PCR (NotDetected) Stool Giardia Lamblia PCR (NotDetected) Stool Salmonella PCR (NotDetected) Stool Sapovirus (PCR) (NotDetected) Stl P. shigelloides PCR (NotDetected) Stl Shigella/EIEC PCR (NotDetected) St Y.enterocolitica PCR (NotDetected) Stool Vibrio (PCR) (NotDetected) Stl Vibrio cholerae PCR (NotDetected) Stl Norovirus GI/GII PCR (NotDetected) SARS-CoV-2 (PCR) (Negative) 10/18/21 10/17/21 10/17/21 Range/Units 06:30 Unknown 13:56 WBC (4.8-10.8) K/uL RBC (4.7-6.1) M/uL Hgb (14.0-18.0) g/dL Hct (42-52) % MCV (80-100) fL MCH (25-34) pg MCHC (32-36) g/dL RDW Std Deviation (36.4-46.3) fL RDW Coeff of Nacho (11.5-14.5) % Plt Count (130-400) K/uL MPV (7.4-10.4) fL ESR (0-15) mm/hr Sodium (136-145) mmol/L Potassium (3.5-5.1) mmol/L Chloride (98-107) mmol/L Carbon Dioxide (21-32) mmol/L Anion Gap (3-11) BUN (7-18) mg/dl Creatinine (0.6-1.4) mg/dl Est Cr Clr Drug Dosing ml/min Est GFR ( Amer) ml/min Est GFR (Non-Af Amer) ml/min BUN/Creatinine Ratio (10-20) Glucose (70-99) mg/dl Lactate 1.5 (0.4-2.0) mmol/L Calcium (8.5-10.1) mg/dl Total Bilirubin (0.2-1) mg/dl AST (15-37) U/L ALT (12-78) Alkaline Phosphatase (45-117) U/L C-Reactive Protein (0-0.29) mg/dl Total Protein (6.4-8.2) gm/dl Albumin (3.4-5.0) gm/dl Globulin (2.5-4.0) gm/dl Albumin/Globulin Ratio (0.9-2) Procalcitonin (0-0.5) ng/ml Stl C. cayetanensis PCR Not Detected (NotDetected) Stool Rotavirus A PCR Not Detected (NotDetected) Stl Adenov F 40/41 PCR Not Detected (NotDetected) Stool Astrovirus (PCR) Not Detected (NotDetected) Stool Campylobacter PCR Not Detected (NotDetected) Stl C. diff Tox B Gene Cancelled Stl C. diff Tox A/B PCR Not Detected (NotDetected) Stool Cryptosporidium PCR Not Detected (NotDetected) Stl E.coli Shiga Tox PCR Not Detected (NotDetected) Stl Enterotoxigenic E PCR Not Detected (NotDetected) Stool EPEC (PCR) Not Detected (NotDetected) Stool EAEC (PCR) Not Detected (NotDetected) Stl E. histolytica PCR Not Detected (NotDetected) Stool Giardia Lamblia PCR Not Detected (NotDetected) Stool Salmonella PCR Not Detected (NotDetected) Stool Sapovirus (PCR) Not Detected (NotDetected) Stl P. shigelloides PCR Not Detected (NotDetected) Stl Shigella/EIEC PCR Not Detected (NotDetected) St Y.enterocolitica PCR Not Detected (NotDetected) Stool Vibrio (PCR) Not Detected (NotDetected) Stl Vibrio cholerae PCR Not Detected (NotDetected) Stl Norovirus GI/GII PCR Not Detected (NotDetected) SARS-CoV-2 (PCR) NEGATIVE (Negative) 10/17/21 10/17/21 Range/Units 09:49 09:49 WBC (4.8-10.8) K/uL RBC (4.7-6.1) M/uL Hgb (14.0-18.0) g/dL Hct (42-52) % MCV (80-100) fL MCH (25-34) pg MCHC (32-36) g/dL RDW Std Deviation (36.4-46.3) fL RDW Coeff of Nacho (11.5-14.5) % Plt Count (130-400) K/uL MPV (7.4-10.4) fL ESR 23 H (0-15) mm/hr Sodium (136-145) mmol/L Potassium (3.5-5.1) mmol/L Chloride (98-107) mmol/L Carbon Dioxide (21-32) mmol/L Anion Gap (3-11) BUN (7-18) mg/dl Creatinine (0.6-1.4) mg/dl Est Cr Clr Drug Dosing ml/min Est GFR ( Amer) ml/min Est GFR (Non-Af Amer) ml/min BUN/Creatinine Ratio (10-20) Glucose (70-99) mg/dl Lactate (0.4-2.0) mmol/L Calcium (8.5-10.1) mg/dl Total Bilirubin (0.2-1) mg/dl AST (15-37) U/L ALT (12-78) Alkaline Phosphatase (45-117) U/L C-Reactive Protein 4.01 H (0-0.29) mg/dl Total Protein (6.4-8.2) gm/dl Albumin (3.4-5.0) gm/dl Globulin (2.5-4.0) gm/dl Albumin/Globulin Ratio (0.9-2) Procalcitonin (0-0.5) ng/ml Stl C. cayetanensis PCR (NotDetected) Stool Rotavirus A PCR (NotDetected) Stl Adenov F 40/41 PCR (NotDetected) Stool Astrovirus (PCR) (NotDetected) Stool Campylobacter PCR (NotDetected) Stl C. diff Tox B Gene Stl C. diff Tox A/B PCR (NotDetected) Stool Cryptosporidium PCR (NotDetected) Stl E.coli Shiga Tox PCR (NotDetected) Stl Enterotoxigenic E PCR (NotDetected) Stool EPEC (PCR) (NotDetected) Stool EAEC (PCR) (NotDetected) Stl E. histolytica PCR (NotDetected) Stool Giardia Lamblia PCR (NotDetected) Stool Salmonella PCR (NotDetected) Stool Sapovirus (PCR) (NotDetected) Stl P. shigelloides PCR (NotDetected) Stl Shigella/EIEC PCR (NotDetected) St Y.enterocolitica PCR (NotDetected) Stool Vibrio (PCR) (NotDetected) Stl Vibrio cholerae PCR (NotDetected) Stl Norovirus GI/GII PCR (NotDetected) SARS-CoV-2 (PCR) (Negative) Diagnostic Findings XR KUB/Abdomen 1 view CLINICAL HISTORY: re-eval partial SBO TECHNIQUE: 1 view of the abdomen was obtained. Comparison: Comparison is made to abdomen radiograph 03/03/[address] abdomen pelvis 10/17/2021 FINDINGS: Lung bases are unremarkable. The osseous structures are grossly unremarkable. Prominent distended loops of small bowel are seen measuring up to 36 mm in diameter. Small stool burden is seen. IMPRESSION: Prominent subcentimeter loops of small bowel are seen compatible with continued partial small bowel obstruction.
[2021-10-18] MEDS ORDERED: methylPREDNISolone 20 MG in SYRINGE 0 ML IV SCH (14:00)
--- NOTE | 2021-10-18 14:23 | Discharge Summary ---
Date of Service October 18, 2021 Admission HPI Per Admitting Provider This is a 46-year-old male with history of Crohn's disease, with past surgical history including abdominal surgery for Crohns 20 to 25 years ago. He presents today with increased abdominal pain x2 days, bloating, distention, and nausea. Hehas previously been placed on steroid so yesterday took leftover Rx of 40 mg of prednisone yesterday, and this morning took an additional 40 mg prednisone however proceeded to vomit afterwards. He has vomited 3 times today, clear bilious emesis, no blood. He reports his abdominal pain is rated a 10 out of 10 at its worst, and has improved some since being in the ER and getting pain medication. Last PO intake was last evening around 6 PM. He ate a small dinner, and had a normal size lunch yesterday. His last bowel movement was this morning and was small. Reports that it was normal in color, no hematochezia, or dark tarry stools. He reports having baseline Crohn's flare once yearly which requires hospitalization, and has been on Stelara for 3 to 4 years. He last took Stelara on Sunday. When asked if it is working well, he is unable to determine, as he does not know what it's like without taking it routinely, but does report time in between hospitalization is well controlled. Social history: History of smoking around age 22, does not drink alcohol, denies illicit drug use. Admission Exam Per Admitting Provider Exam: General: awake, alert, no apparent distress, lying flat in bed Head: Normocephalic, atraumatic ENT: PERRL, EOMI, no pharyngeal exudate, mucous membranes moist Chest: Clear to auscultation, on room air, no adventitious breath sounds Cardiac: Regular rate and rhythm, no murmur, no JVD, normal peripheral pulses, good capillary refill Abdominal: NABS x 4 quadrants, soft, nondistended, +tender to palpation, increased pain with lower abdominal palpation, no rebound or guarding Extremities: Normal inspection, no peripheral edema or erythema, calfs nontender to palpation Psych: Normal mood and affect Neuro: AAO x 3, strength intact bilaterally and rated 5/5, no motor deficits, speech is clear, no peripheral sensory deficits Principal Diagnosis Exacerbation of Crohn's Disease Discharge Exam Gen: WD/WN, NAD, A&O x3 HEENT: Normocephalic, atraumatic, conjunctivae moist, sclerae anicteric, mucous membranes moist. Lung: Clear to Auscultation bilaterally, no wheezes/rales/rhonchi Heart: Regular rate, regular rhythm, no murmurs, rubs, or gallops Abdomen: Soft, minimal distention, mild tenderness to light and deep palpation in left lower quadrant +BS x 4, surgical scars on abd Extremities: No edema Skin: Warm, no rash, negative turgor. 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 He presented w abd pain, n/v symptoms and noted to havemucosal thickening and narrowing of multiple segments of ileum, partial small bowel obstruction on CT abd/pelvis. On exam, soft abd, BS present on all 4 quadrants, he is still passing small amts of flatus KUB reviewed which showed persistent SBO but he is passing flatus and stools, benign exam. WBC normalized, stool studies negative for infection - Start FL diet, advance as tolerated to soft, low fiber diet eventually - Methylprednisolone 20mg IV Q8hrs while inpt - If tolerated diet well today, no contraindication for DC home today with Prednisone taper: 40mg daily x 7 days, 30mg daily x 7 days, 20mg daily x 7 days, 15mg daily x7 days, 10 daily x 7 days, 5mg daily x 7 days then stop. - Surgery not planning on surgical intervention - Pls recall GI prn 10/17/21 14:23 Consult General Surgery Routine (1) Exacerbation of Crohn's disease: (2) Small bowel obstruction: Plan: 46 year-old male with history of Crohn's disease who presented to ED with abdominal pain, nausea, and vomiting. CT scan showing active Crohn's flare with partial SBO. -afebrile, leukocytosis resolved - stool studies with no infection - + bowel function - benign abdomen on exam Plan: No acute surgical indication at this time okay to advance diet to clears or full liquids steroids per medicine/GI team Ordered Studies Abdomen/Pelvis CT 10/17/21 09:40 CT abd pelvis IV con only CLINICAL HISTORY: History of Crohn's disease. Patient reports a flareup starting yesterday. Nausea and vomiting. Evaluate for obstruction. COMPARISON STUDY: 03/25/2020 CT DOSE: 646.44 mGycm TECHNIQUE: Standard CT of the Abdomen and Pelvis was performed with IV contrast. A dose lowering technique was utilized adhering to the principles of ALARA. Contrast Volume: Optiray 320, 94 ml. The patient did not receive oral contrast. FINDINGS: Lung base: The lung bases are clear. Abdominal cavity and bowel: Compared to the previous examination, the patient is again status post right hemicolectomy and terminal ileum resection with patent anastomosis. However, there is now patchy mucosal thickening and narrowing of multiple segments of distal ileum as seen on image 236 and on image 278. On image 78, there is actually a transition between mildly to moderately dilated proximal small bowel loops and decompressed distal small bowel loops that demonstrate the mucosal thickening. Findings are characteristic of recurrence of active Crohn's disease and associated partial small bowel obstruction. The remainder of the colon is decompressed. No other inflammatory changes, free fluid or free air are seen. There is a small hiatal hernia. Liver: There is homogeneous attenuation of the liver parenchyma. There is no evidence for enhancing mass lesion. Spleen: There is homogeneous attenuation of the splenic parenchyma. There is no enhancing mass lesion. Pancreas: There is homogeneous attenuation of the pancreatic parenchyma. There is no evidence for mass lesion or peripancreatic fluid collection. Gall Bladder: The gallbladder is well distended with suspicion of cholelithiasis. Gallbladder ultrasound would be the study of choice for further evaluation. Adrenal glands: The adrenal glands are normal in size and attenuation. There is no evidence for enhancing mass lesion. Kidneys: There is homogeneous attenuation of the renal parenchyma bilaterally. There is no evidence for renal calculus or hydronephrosis. There is no evidence for enhancing mass. Bladder: The bladder is within normal limits with no evidence for focal mass, calculus or diverticulum. : There is no evidence for pelvic mass or adenopathy. There is no evidence for pelvic ascites. Vasculature: There is no evidence for aneurysmal dilatation of the abdominal aor ta. Osseous structures: There is no acute osseous pathology. IMPRESSION: 1. Compared to the previous study, there is evidence for recurrence of active Crohn's disease with mucosal thickening and narrowing of multiple segments of ileum. Associated partial small bowel obstruction is present. 2. There is also suspicion of cholelithiasis. ACT 112: Negative or not required by law. Electronically signed by: Darryl Rivas M.D. 10/17/2021 11:43 AM Chest X-Ray 10/17/21 09:40 XR chest 1V portable CLINICAL HISTORY: abd pain TECHNIQUE: Single frontal radiograph of the chest was obtained. Comparison: Comparison is made to chest one view 03/01/2017 FINDINGS: No lines and tubes are seen. The cardiomediastinal silhouette is normal. The lungs are clear. No evidence of pleural effusion or pneumothorax. IMPRESSION: No acute chest disease. ACT 112: Negative or not required by law. Electronically signed by: Raul Jimenez M.D. 10/17/2021 10:00 AM KUB X-Ray 10/18/21 07:00 XR KUB/Abdomen 1 view CLINICAL HISTORY: re-eval partial SBO TECHNIQUE: 1 view of the abdomen was obtained. Comparison: Comparison is made to abdomen radiograph 03/03/[address] abdomen pelvis 10/17/2021 FINDINGS: Lung bases are unremarkable. The osseous structures are grossly unremarkable. Prominent distended loops of small bowel are seen measuring up to 36 mm in diameter. Small stool burden is seen. IMPRESSION: Prominent subcentimeter loops of small bowel are seen compatible with continued partial small bowel obstruction. ACT 112: Negative or not required by law. Electronically signed by: Raul Jimenez M.D. 10/18/2021 9:03 AM Hospital Course (1) Crohns disease: (2) Small bowel obstruction: This is a 46-year-old male with history of Crohn's disease, history of fistula formation and status post ileocolectomy 25 years ago and is currently maintained on Stelara. He presented to ED on 10/17 secondary to abdominal pain, nausea and vomiting. CT abdomen pelvis noted to have mucosal thickening and narrowing of multiple segments of ileum, partial small bowel obstruction. Initial WBC was significantly elevated at 20k. Stool cultures were negative for infection and cdiff. He was seen and evaluated by GI and general surgery. Infectious etiology ruled out and GI felt sx likely 2/2 to exacerbation of Crohns disease. This is his 4th episode of recurrence. Surgery felt conservative management warranted w/o need for surgical intervention. He was started on IV solumedrol 20mg q8hr. In regards to his Partial SBO on day 1 of hospitalization he started passing flatus and moving bowels. He was tolerating diet and it was advanced as tolerated. White blood cell count significantly improved. At time of discharge patient was free of abdominal pain, continuing to pass flatus and passed bowels. He tolerated diet. GI recommends discharge on extended prednisone taper. He will follow up with PCP and GI as outpatient. The chart was completed utilizing [employer] Speech voice recognition software. Grammatical errors, random word insertions, pronoun errors, and incomplete sentences are an occasional consequence of this system due to software limitations, ambient noise, and hardware issues. Any formal questions or concerns about the content, text, or information contained within the body of this dictation should be directly addressed to the provider for clarification. Total Time Total Time Spent Total Time Spent (In Minutes): 35 minutes Total Time Includes: Examination of the Patient, Discharge Planning, Medication Reconciliation, Communication With Other Providers and Other Discharge Plan Discharge Items Patient Disposition: Home - Self-Care Reason For Visit: ABD PAIN Discharge Diagnosis: Exacerbation of Crohn's Disease Condition on Discharge: Good Activity: Resume your previous activity Lifting: Gradually increase as tolerated Bathing: No limitations Exercise/Sports: Gradually increase as tolerated Driving/Machine Use: No limitations Non-emergency contact: Primary Care Provider and Sales Special Agent Call non-emergency contact if: you have any medication questions, your symptoms worsen, your pain is not controlled, your pain is worsening, your pain is unusual for you, your pain is concerning for you, you have a fever and your temperature is above 101 Follow-up/Referrals: Marlon Cadet CRNP [Nurse Practitioner] - 12/06/21 8:00 am (12/06/21 @ 8:00 a.m. with Marlon Cadet for follow up Crohn's flare) Hernesto Thapa DO [Primary Care Provider] - 10/25/21 11:00 am (10/25/21 @11:[address] Thapa) Diet: Low Fiber Addtl Attending Provider Instructions: NEW MEDICATIONS: Prednisone Taper as follows: 40mg daily x 7 days, 30mg daily x 7 days, 20mg daily x 7 days, 15mg daily x7 days, 10 daily x 7 days, 5mg daily x 7 days then stop. RECOMMENDATIONS FOR FOLLOW-UP: Please follow a low residue diet for the next 72 hours; if you continue to remain pain free and moving bowels regularly you may resume your normal diet. Please complete prednisone taper as prescribed. You have been scheduled a follow up appointment with your PCP and Sales Special Agent. Please keep these appointments. Stay well hydrated. You may take Tylenol 500mg every 4-6 hours as needed for pain. Avoid anti-inflammatory medications as it may increase your risk for bleeding including ibuprofen, Motrin, Advil, Aleve, naproxen, Naprosyn, Excedrin. OTHER INSTRUCTIONS: Seek medical attention if you have: * temperature above 101 * chest pain or trouble breathing * abdominal pain, nausea, vomiting * diarrhea, dark stools or bloody stools * any unanswered questions or concerns Call 911 if symptoms are severe. Please take good care of yourself. It has been a pleasure taking care of you. Please take care of yourself. If you have any questions regarding your recent hospitalization please contact [facility] and request [facility] @ [phone]. Ruby Mclaughlin PA-C Pending Studies at Discharge: No Stand-Alone Forms: [facility], Work/School Release, Smoking Cessation Medications and DC Order Prescriptions: New prednisone 10 mg tablet See Taper mg PO DAILY Qty: 84 RF: 0 Continued Stelara 90 mg/mL syringe 90 mg [id number] RF: 0 Discharge Orders: Discharge Order (Routine); Ordered 10/18/21 Ordered By: Ruby Clay/Other Patient Handouts: Low-Fiber Diet Admission Data Admit Date/Time: 10/17/21 12:26 Attending Provider: Juan Henry Admit Provider: Ileana Keating Primary Care Provider: Hernesto Thapa Other Providers: Nancie Nixon ; Ileana Keating ; Manuel Vera Other Interventions: Discharge Summary Assessment (RN) Last Done: 10/18/21 14:07 Supervising Physician Co-Signing Physician Notes 46-year-old gentleman with history of Crohn's disease with past surgical history of abdominal surgery for Crohn's 2025 years ago who presented 10/17 to our ED with 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 He was admitted with acute flare of Crohn's disease and small bowel obstructionpartial. GI and surgery evaluated the patient while inpatient. GI recommended steroid, no surgical intervention needed at patient was moving bowel on the day of discharge. Patient is stated feeling well after having bowel movement and also stated improvement in his belly pain. On examination, no belly pain noted, normal bowel sounds appreciated. Rest of the examinations as above. Patient will need to follow-up with his PCP, GI as an outpatient. I have seen and examined the patient and have discussed the case with the provider above. I agree with the assessment and plan as stated.
== END 2021-10-18 15:41 | disposition home or self-care (01) | DRG 387 ==
LOC: ED 08:23 → SUATTDRO 12:26 → 3N 12:26

== ENCOUNTER 2022-06-06 22:13 | Inpatient (IN) ==
[2022-06-06 22:41] LABS: Basophils # (auto) 0.04 K/uL (0-0.2); Basophils % (auto) 0.2 %; Eosinophils # (auto) 0.03 K/uL (0-0.50); Eosinophils % (auto) 0.2 %; Hematocrit (blood only) 45.4 % (40.1-51.0); Hemoglobin 15.1 g/dl (14.0-18.0); Immature Granulocytes # (auto) 0.05 K/uL (0.00-0.02); Immature Granulocytes % (auto) 0.3 %; Lymphocytes % (auto) 11.8 %; Mean Corpuscular Hemoglobin 29.5 pg (25.0-34.0); Mean Corpuscular Hgb Conc 33.3 g/dL (32.0-36.0); Mean Corpuscular Volume 88.8 fL (80.0-100.0); Mean Platelet Volume 9.2 fL (9.4-12.4); Monocytes # (auto) 1.12 K/uL (0.24-0.82); Monocytes % (auto) 6.3 %; Neutrophils # (auto) 14.49 K/uL (1.4-6.5); Neutrophils % (auto) 81.2 %; Platelet Count 572 K/uL (130-400); RDW Coefficient of Variation 13.7 % (11.5-14.5); RDW Standard Deviation 44.3 fL (36.4-46.3); Red Blood Count 5.11 M/uL (4.63-6.08); White Blood Count 17.83 K/ul (4.8-10.8)
[2022-06-06 23:02] LABS: Albumin Globulin Ratio 1.7 (0.9-2); Albumin Level 4.6 gm/dl (3.4-5.0); BUN Creatinine Ratio 15.3 (10-20); Bilirubin,Total 0.9 mg/dl (0.2-1.0); Calcium 9.8 mg/dl (8.5-10.1); Creatinine Clr Calc Pharmacy 69.4 ml/min; Est GFR (African American) 108.2 ml/min; Est GFR (Non-African American) 93.4 ml/min; Globulin 2.7 gm/dl (2.5-4.0); Potassium 3.8 mmol/L (3.5-5.1); Total Protein 7.3 gm/dl (6.0-8.3)
[2022-06-06] MEDS ORDERED: MoRPHine SULFATE 4 MG/ML 1 ML CARP\\VIAL IV STA (23:11)
[2022-06-06] MEDS ORDERED: ACETAMINOPHEN 1,000 MG/100 ML VIAL IV STA (23:11)
[2022-06-06] MEDS ORDERED: SODIUM CHLORIDE 0.9% 1000ML 1,000 ML IV ONE (23:11)
[2022-06-06] MEDS ORDERED: ONDANSETRON INJ 2 MG/ML 2 ML VIAL IV STA (23:11)
--- NOTE | 2022-06-06 23:58 | Emergency Department Note ---
History of Present Illness General Chief complaint: Abdominal Pain Stated complaint: ABD PAIN Time Seen by Provider: 06/06/22 22:59 Source: patient Mode of arrival: ambulatory History of Present Illness Provider complaint: Abdominal pain Onset (ago): hour(s) Maximum Pain Intensity: 10 Associated symptoms: + loss of appetite and + nausea/vomiting; no chest pain, no fever/chills or no shortness of breath Treatments prior to arrival: other This is a 46-year-old male presents emergency department due to abdominal pain. Patient states abdominal pain began this evening when he got home from work. Patient does have a significant history of Crohn's including prior bowel resection. He has also had prior fistulas. He does follow with GI regularly. Patient states this evening pain became dull and he tried taking Tylenol. Pain continued to worsen and has been constant, he states is across his lower abdomen and is otherwise nonradiating. He states he did have a normal bowel movement this morning, denies melena or hematochezia. Patient states this evening due to the pain he began getting nauseated and did vomit several times prior to arrival. He denies fevers, but did feel chilled when he was vomiting. Patient denies any recent change in diet or medications. No recent illness. No change in activity. No other known sick contacts. Pt seen during a time of high acuity and national emergency pandemic while wearing PPE. Home Medications Medication Instructions Recorded Confirmed Type ustekinumab 90 mg/mL subcutaneous 90 mg subcut Q8WK 10/17/21 06/06/22 History syringe (Stelara) acetaminophen 500 mg tablet 1,000 mg PO Q6H PRN Pain 06/06/22 06/06/22 History (Tylenol Extra Strength) multivitamin 1 tab PO DAILY 06/06/22 06/06/22 History Allergies Allergy/AdvReac Type Severity Reaction Status Date / Time No Known Allergies Allergy Verified 06/06/22 23:00 Past Med/Surg History Medical History (Updated 06/08/22 @ 00:27 by Chani Mccoy DO) Crohns disease Follows with [facility] (Dr. Perales) - maintained on Stelara Surgical History History of appendectomy History of bowel resection 18 inches ileocolonic resection - 1996 ([place]) Social History Smoking Status: Never smoker Second Hand Exposure: No; Hx Alcohol Use: No Hx Substance Use: No Preferred Language: Malian Communication Ability: Effective Help Desk Associate Required: No Beliefs That Will Affect Care: None Current Living Situation: Spouse Feels Safe at Home: Yes Safety Concerns: Feels Safe At This Time Assistive Devices: None Review of Systems A total of 10 systems reviewed and were otherwise negative All systems reviewed & are unremarkable except as noted in HPI & below Physical Exam Vital Signs Vital Signs - 24 hr 06/07/22 03:59 Pulse Rate [Apical] 93 H Respiratory Rate 20 Respiratory Effort / Characteristics Non-Labored Respiratory Depth Normal Blood Pressure [Left Arm] 138/97 Blood Pressure Mean [Left Arm] 110 Blood Pressure Position [Left Arm] Sitting Pulse Oximetry 98 Oxygen Delivery Method Room Air GENERAL: alert, uncomfortable appearing, well nourished, moderate distress, non- toxic EYE EXAM: normal conjunctiva, PERRL and EOM's grossly intact OROPHARYNX: no exudate, no erythema, lips, buccal mucosa, and tongue normal and mucous membranes are moist NECK: supple, no nuchal rigidity, no adenopathy, non-tender LUNGS: Clear to auscultation. Normal chest wall mechanics, no w/r/r HEART: no murmurs, S1 normal and S2 normal ABDOMEN: abdomen soft, diffuse tenderness with palpation, normo-active bowel sounds, no masses, no rebound, mild splinting noted throughout. Well-healed vertical midline incision consistent with prior laparotomy. BACK: Back is symmetrical on inspection and there is no deformity, no midline tenderness, no CVA tenderness. SKIN: no rashes and no bruising UPPER EXTREMITIES: upper extremities are grossly normal. FROM, nml pulses b/l. LOWER EXTREMITIES: No pitting edema. FROM, nml pulses b/l. NEURO EXAM: Normal sensorium, cranial nerves II-XII grossly intact, normal speech, no gross weakness of arms, no gross weakness of legs. Gross sensation intact. Course Administered Medications Heparin Sodium (Porcine) (Heparin Sod 5,000 Unit/0.5 Ml Vial) 5,000 units SQ Q8 NIMCO Stop: 07/07/22 06:44 Last Admin: 06/07/22 22:38 Dose: 5,000 units Documented By: JOSE ANGEL Admin: 06/07/22 14:55 Dose: 5,000 units Documented By: Admin: 06/07/22 09:13 Dose: 5,000 units Documented By: SINA Promethazine HCl 6.25 mg/ (Sodium Chloride) 50.25 mls @ 201 mls/hr IV Q6H PRN PRN Reason: Nausea And Vomiting Stop: 07/07/22 06:36 Last Infusion: 06/07/22 07:58 Dose: 0 mls/hr Documented By: Admin: 06/07/22 07:27 Dose: 201 mls/hr Documented By: JOSE ANGEL Lactated Ringer's (Lr) 1,000 mls @ 150 mls/hr IV .Q6H40M NIMCO Stop: 07/07/22 16:59 Last Infusion: 06/07/22 23:04 Dose: 0 mls/hr Documented By: JOSE ANGEL Infusion: 06/07/22 22:38 Dose: 0 mls/hr Documented By: JOSE ANGEL Admin: 06/07/22 22:38 Dose: 150 mls/hr Documented By: JOSE ANGEL Infusion: 06/07/22 21:36 Dose: 150 mls/hr Documented By: JOSE ANGEL Admin: 06/07/22 14:55 Dose: 150 mls/hr Documented By: SINA Methylprednisolone 20 mg/ (Syringe) 0.32 mls @ 1.5 mls/min IV Q8H NIMCO Stop: 07/07/22 11:59 Last Admin: 06/07/22 19:50 Dose: 1.5 mls/min Documented By: JOSE ANGEL Admin: 06/07/22 11:29 Dose: 1.5 mls/min Documented By: SINA Ciprofloxacin (Cipro / D5w) 400 mg in 200 mls @ 100 mls/hr IV Q12H NIMCO; Protocol Stop: 06/17/22 10:29 Last Infusion: 06/07/22 23:04 Dose: 100 mls/hr Documented By: JOSE ANGEL Infusion: 06/07/22 22:38 Dose: 100 mls/hr Documented By: JOSE ANGEL Admin: 06/07/22 22:38 Dose: 100 mls/hr Documented By: JOSE ANGEL Infusion: 06/07/22 14:40 Dose: 0 mls/hr Documented By: Admin: 06/07/22 11:28 Dose: 100 mls/hr Documented By: SINA Metronidazole (Flagyl) 500 mg in 100 mls @ 100 mls/hr IV Q8H NIMCO Stop: 06/17/22 10:14 Last Infusion: 06/07/22 19:50 Dose: 0 mls/hr Documented By: JOSE ANGEL Admin: 06/07/22 17:53 Dose: 100 mls/hr Documented By: Infusion: 06/07/22 12:25 Dose: 0 mls/hr Documented By: Admin: 06/07/22 11:24 Dose: 100 mls/hr Documented By: SINA Multivitamins (Multivitamin Tab) 1 tab PO DAILY NIMCO Stop: 07/07/22 08:59 Last Admin: 06/07/22 09:14 Dose: Not Given Documented By: SINA Discontinued Medications Sodium Chloride (Nss 1000ml) 1,000 mls @ 999 mls/hr IV .Q1H1M ONE Stop: 06/07/22 00:11 Last Infusion: 06/07/22 03:06 Dose: 0 mls/hr Documented By: Admin: 06/06/22 23:31 Dose: 999 mls/hr Documented By: GREY Acetaminophen (Ofirmev) 1,000 mg in 100 mls @ 400 mls/hr IV NOW STA Stop: 06/06/22 23:25 Last Infusion: 06/07/22 03:06 Dose: 0 mls/hr Documented By: Admin: 06/06/22 23:31 Dose: 400 mls/hr Documented By: GREY Sodium Chloride (Nss 1000ml) 1,000 mls @ 125 mls/hr IV .Q8H NIMCO Stop: 07/07/22 03:29 Last Infusion: 06/07/22 07:23 Dose: 0 mls/hr Documented By: Admin: 06/07/22 03:53 Dose: 125 mls/hr Documented By: EUFEMIA Lactated Ringer's (Lr) 1,000 mls @ 80 mls/hr IV .[id number] STA Stop: 06/07/22 16:26 Last Infusion: 06/07/22 15:25 Dose: 0 mls/hr Documented By: Admin: 06/07/22 04:42 Dose: 80 mls/hr Documented By: EUFEMIA Ioversol (Optiray 320 100ml) 100 ml IV ONCE ONE Stop: 06/07/22 00:39 Last Admin: 06/07/22 00:40 Dose: 93 ml Documented By: MINAL Methylprednisolone (Methylprednisolone 40 Mg/Ml Vial) 20 mg IV NOW STA Stop: 06/07/22 03:42 Last Admin: 06/07/22 04:42 Dose: 20 mg Documented By: EUFEMIA Metoprolol Tartrate (Metoprolol Tartrate 1 Mg/Ml Vial) 2.5 mg IV NOW STA Stop: 06/07/22 05:58 Last Admin: 06/07/22 06:19 Dose: 2.5 mg Documented By: EUFEMIA Morphine Sulfate (Morphine Sulfate 4 Mg/Ml 1 Ml Carp\Vial) 4 mg IV NOW STA Stop: 06/06/22 23:12 Last Admin: 06/06/22 23:31 Dose: 4 mg Documented By: GREY Morphine Sulfate (Morphine Sulfate 4 Mg/Ml 1 Ml Carp\Vial) 4 mg IV NOW STA Stop: 06/07/22 03:26 Last Admin: 06/07/22 03:51 Dose: 4 mg Documented By: EUFEMIA Ondansetron HCl (Ondansetron Inj 2 Mg/Ml 2 Ml Vial) 4 mg IV NOW STA Stop: 06/06/22 23:12 Last Admin: 06/06/22 23:31 Dose: 4 mg Documented By: GREY Ondansetron HCl (Ondansetron Inj 2 Mg/Ml 2 Ml Vial) Confirm Administered Dose 4 mg .ROUTE .STK-MED ONE Stop: 06/07/22 03:57 Last Admin: 06/07/22 03:56 Dose: 4 mg Documented By: EUFEMIA Medical Decision Making Differential Diagnosis Differential diagnoses includes but is not limited to gastritis, peptic ulcer disease, GERD, gallbladder disease, pancreatitis, small bowel obstruction, acute coronary syndrome, pericarditis, ischemic bowel, irritable bowel disease, irritable bowel syndrome, appendicitis, diverticulitis, malignancy, hernia, urinary tract infection, torsion, [/ectopic (if female)], perforation, trauma, infectious. Medical Records Attestation: I reviewed the patient's medical records. Home Medications Current Medication List: was personally reviewed by me Laboratory Data Attestation: I reviewed the patient's lab results. Result diagrams: 06/07/22 07:31 06/07/22 07:31 Lab Results 06/06/22 06/06/2222 Range/Units 21:26 22:20 22:20 WBC 17.83 H (4.8-10.8) K/ul RBC 5.11 (4.63-6.08) M/uL Hgb 15.1 (14.0-18.0) g/dl Hct 45.4 (40.1-51.0) % MCV 88.8 (80.0-100.0) fL MCH 29.5 (25.0-34.0) pg MCHC 33.3 (32.0-36.0) g/dL RDW Std Deviation 44.3 (36.4-46.3) fL RDW Coeff of Nacho 13.7 (11.5-14.5) % Plt Count 572 H (130-400) K/uL MPV 9.2 L (9.4-12.4) fL Immature Gran % (Auto) 0.3 % Neut % (Auto) 81.2 % Lymph % (Auto) 11.8 % Barnes % (Auto) 6.3 % Eos % (Auto) 0.2 % Baso % (Auto) 0.2 % Neut # (Auto) 14.49 H (1.4-6.5) K/uL Lymph # (Auto) 2.10 (1.2-3.4) K/uL Barnes # (Auto) 1.12 H (0.24-0.82) K/uL Eos # (Auto) 0.03 (0-0.50) K/uL Baso # (Auto) 0.04 (0-0.2) K/uL Immature Gran # (Auto) 0.05 H (0.00-0.02) K/uL Sodium 143 (136-145) mmol/L Potassium 3.8 (3.5-5.1) mmol/L Chloride 103 (98-107) mmol/L Carbon Dioxide 29 (21-32) mmol/L Anion Gap 11 (3-11) BUN 15 (6-23) mg/dl Creatinine 0.98 (0.6-1.4) mg/dl Est Cr Clr Drug Dosing 69.4 ml/min Est GFR ( Amer) 108.2 ml/min Est GFR (Non-Af Amer) 93.4 ml/min BUN/Creatinine Ratio 15.3 (10-20) Glucose 132 H (70-99(Fasting)) mg/dl Estimat Average Glucose mg/dl Hemoglobin A1c (4.5-5.6) % Lactate 1.6 (0.4-2.0) mmol/L Calcium 9.8 (8.5-10.1) mg/dl Magnesium 2.3 (1.7-2.4) mg/dl Total Bilirubin 0.9 (0.2-1.0) mg/dl AST 13 (13-39) U/L ALT 15 (7-52) U/L Alkaline Phosphatase 79 (34-104) U/L Total Protein 7.3 (6.0-8.3) gm/dl Albumin 4.6 (3.4-5.0) gm/dl Globulin 2.7 (2.5-4.0) gm/dl Albumin/Globulin Ratio 1.7 (0.9-2) Lipase 16 (11-82) U/L Procalcitonin (0-0.5) ng/ml Urine Color Urine Appearance (Clear) Urine pH (4.5-7.5) Ur Specific [place] (1.000-1.030) Urine Protein (Negative) Urine Glucose (UA) (Negative) Urine Ketones (Negative) Urine Blood (Negative) Urine Nitrite (Negative) Urine Bilirubin (Negative) Urine Urobilinogen (Negative) Ur Leukocyte Esterase (Negative) Urine WBC (Auto) (0-5) /hpf Urine RBC (Auto) (0-4) /hpf U Hyaline Cast (Auto) (0-5) /lpf U Epithel Cells (Auto) (0-5) /lpf Urine Bacteria (Auto) (Negative) Urine Crystals Calcium Oxalate Crystal (None Prsent) Urine Mucus (None Prsent) 06/06/22 06/06/22 06/07/22 Range/Units 22:20 23:45 00:34 WBC (4.8-10.8) K/ul RBC (4.63-6.08) M/uL Hgb (14.0-18.0) g/dl Hct (40.1-51.0) % MCV (80.0-100.0) fL MCH (25.0-34.0) pg MCHC (32.0-36.0) g/dL RDW Std Deviation (36.4-46.3) fL RDW Coeff of Nacho (11.5-14.5) % Plt Count (130-400) K/uL MPV (9.4-12.4) fL Immature Gran % (Auto) % Neut % (Auto) % Lymph % (Auto) % Barnes % (Auto) % Eos % (Auto) % Baso % (Auto) % Neut # (Auto) (1.4-6.5) K/uL Lymph # (Auto) (1.2-3.4) K/uL Barnes # (Auto) (0.24-0.82) K/uL Eos # (Auto) (0-0.50) K/uL Baso # (Auto) (0-0.2) K/uL Immature Gran # (Auto) (0.00-0.02) K/uL Sodium (136-145) mmol/L Potassium (3.5-5.1) mmol/L Chloride (98-107) mmol/L Carbon Dioxide (21-32) mmol/L Anion Gap (3-11) BUN (6-23) mg/dl Creatinine (0.6-1.4) mg/dl Est Cr Clr Drug Dosing ml/min Est GFR ( Amer) ml/min Est GFR (Non-Af Amer) ml/min BUN/Creatinine Ratio (10-20) Glucose (70-99(Fasting)) mg/dl Estimat Average Glucose 108 mg/dl Hemoglobin A1c 5.4 (4.5-5.6) % Lactate (0.4-2.0) mmol/L Calcium (8.5-10.1) mg/dl Magnesium (1.7-2.4) mg/dl Total Bilirubin (0.2-1.0) mg/dl AST (13-39) U/L ALT (7-52) U/L Alkaline Phosphatase (34-104) U/L Total Protein (6.0-8.3) gm/dl Albumin (3.4-5.0) gm/dl Globulin (2.5-4.0) gm/dl Albumin/Globulin Ratio (0.9-2) Lipase (11-82) U/L Procalcitonin < 0.05 (0-0.5) ng/ml Urine Color Dark Yellow Urine Appearance Clear (Clear) Urine pH 6.5 (4.5-7.5) Ur Specific [place] 1.042 H (1.000-1.030) Urine Protein Trace H (Negative) Urine Glucose (UA) Negative (Negative) Urine Ketones 1+ H (Negative) Urine Blood Negative (Negative) Urine Nitrite Negative (Negative) Urine Bilirubin 1+ H (Negative) Urine Urobilinogen Negative (Negative) Ur Leukocyte Esterase Negative (Negative) Urine WBC (Auto) 1-5 (0-5) /hpf Urine RBC (Auto) 0-4 (0-4) /hpf U Hyaline Cast (Auto) 0 (0-5) /lpf U Epithel Cells (Auto) 20-30 H (0-5) /lpf Urine Bacteria (Auto) Negative (Negative) Urine Crystals Not Reportable Calcium Oxalate Crystal Present A (None Prsent) Urine Mucus Present A (None Prsent) Imaging Data Radiologist's Impression: Abdomen/Pelvis CT 06/06/22 23:11 CT OF THE ABDOMEN AND PELVIS WITH CONTRAST CLINICAL HISTORY: Abdominal pain, nausea and vomiting. Hx Crohn's COMPARISON STUDY: CT of the abdomen and pelvis October 17, 2021. KUB October 18, 2021. TECHNIQUE: Following IV administration of 93 mL of Optiray, axial images of the abdomen and pelvis were obtained from the lung bases to the proximal femurs. Images were reviewed in the axial, sagittal, and coronal planes. IV contrast was administered without complication. Automated exposure control was utilized for the study. A dose lowering technique was utilized adhering to the principles of ALARA. CT DOSE: 302.53 mGy.cm FINDINGS: Lung bases are unremarkable. There is circumferential wall thickening of the distal esophagus. No pneumatosis, free air or portal venous gas is present. Small hyperdense foci within the gallbladder fundus are again noted. These may reflect gallstones. No pericholecystic infiltration. Liver, spleen, adrenal glands, kidneys and pancreas are unremarkable. Is no hydronephrosis. There is no biliary or pancreatic ductal dilatation. Major vasculature is patent. Small amount of ascites within the pelvis is noted. Ileocecectomy is noted. Multiple loops of moderately dilated fluid-filled mid small bowel are noted. Transition point is within the mid small bowel due to circumferential wall thickening with mucosal hyperemia which extends for approximately 15 cm. Small amount of interloop ascites is present. Similar pattern was shown on CT of October 17, 2021. There is no abscess. No fistulas are identified. Sigmoid diverticulosis is noted without evidence for acute diverticulitis. No perianal/perirectal abscess or fistulas is identified. No acute fracture or suspicious lesion within the visualized skeletal structures. IMPRESSION: Findings consistent with a small bowel obstruction with transition point within the mid small bowel due to circumferential wall thickening and mucosal hyperemia which extends for approximately 15 cm consistent with active inflammatory bowel disease. Associated mesenteric stranding and small amount of ascites. No abscess. No free air. ACT 112: Negative or not required by law. Electronically signed by: Dk Guardado M.D. 06/07/2022 6:[address] abdomen pelvis with contrast: Comparison to October 16, 2021. There are multiple dilated loops of small bowel throughout the mid to upper abdomen with gas-fluid levels within them consistent with intermediate grade bowel obstruction. There is narrowing of the mid small bowel consistent with wall thickening likely inflammation from Crohn's disease, similar to previous. No bowel perforation or abscess is identified. Liver, gallbladder, spleen, pancreas, adrenal glands, and kidneys appear within normal limits. The aorta is nondilated. The urinary bladder is partially distended and unremarkable. Mild degenerative changes in the lower lumbar spine. No fracture or subluxation. Radiologist:Pacheco Dumas MD MDM Narrative An order was placed for continuous cardiac monitoring. The monitor shows a rate of _70_ with _normal sinus_ rhythm. This is a 46-year-old male presents emergency department with complaints of abdominal pain, nausea and vomiting. Patient concerned due to prior history of bowel obstruction in the setting of a diagnosis of Crohn's disease. Patient has had prior resection and does follow with GI regularly. Patient was afebrile and hemodynamically stable, labs drawn and sent and patient ultimately sent for CT imaging. CT revealed small bowel obstruction with accompanying changes likely from his ongoing Crohn's. Patient was given several doses of medication for pain, as well as IV fluid repletion. He was also given medication for nausea. Case discussed with hospitalist for additional evaluation and management. Impression & Plan Abdominal pain, Crohn's disease, SBO (small bowel obstruction) Discharge Plan Visit Data Chief Complaint: Abdominal Pain Stated Complaint: ABD PAIN ED Provider: Chani Mccoy Discharge Problem: Abdominal pain, Crohn's disease, SBO (small bowel obstruction) Patient Disposition: Admitted As Inpatient Discharge Instructions Interventions: ED Discharge Assessment Last Done: 06/07/22 06:17
[2022-06-07] MEDS ORDERED: OPTIRAY 320 100ml IV ONE (00:38)
[2022-06-07 01:11] LABS: Appearance Urine Clear (Clear); Bacteria Urine Automated Negative (Negative); Blood Urine Negative (Negative); Color Urine Dark Yellow; Epithelial Cell Urine Auto 20-30 /lpf (0-5); Glucose Urine UA Negative (Negative); Ketones Urine 1+ (Negative); Leukocyte Esterase Urine Negative (Negative); Nitrite Urine Negative (Negative); Protein Urine Trace (Negative); RBC Urine Automated 0-4 /hpf (0-4); Specific Gravity Urine 1.042 (1.000-1.030); Urobilinogen Urine Negative (Negative); pH Urine 6.5 (4.5-7.5)
[2022-06-07 01:17] LABS: Bilirubin Urine 1+ (Negative)
[2022-06-07 01:19] LABS: Calcium Oxalate Crystals Urine Present (None Prsent); Cast Urine Automated 0 /lpf (0-5); Mucus Urine Present (None Prsent)
[2022-06-07] MEDS ORDERED: MoRPHine SULFATE 4 MG/ML 1 ML CARP\\VIAL IV STA (03:25)
[2022-06-07] MEDS ORDERED: SODIUM CHLORIDE 0.9% 1000ML 1,000 ML IV SCH (03:30)
--- NOTE | 2022-06-07 03:39 | History & Physical Report ---
Date of Service June 07, 2022 Assessment & Plan (1) SBO (small bowel obstruction): Plan: Recurrent SBO Secondary to IBD flareup hx Crohn disease status post surgery Hyperglycemia ro DM past tobacco abuse GMF Bowel rest NGT insertion if with recurrent emesis Solu-Medrol for IBD flareup GI consult. Re: IBD flareup General surgery consult Re: Recurrent SBO Check hemoglobin A1c DVT prophylaxis. Heparin subcu Full code Text document was generated using [employer] voice recognition software. It may contain grammatical or spelling errors. Kindly contact undersigned for clarification of any documentation item in question. History of Present Illness Chief Complaint: Abdominal pain Primary Care Provider: Hernesto Thapa DO History obtained from patient and records. Medical history is significant for Crohn disease status post surgery, past tobacco abuse. Patient diagnosed with Crohn disease since he was 19 years old. Underwent a colonic resection at [facility] in 1996. Last confinement October 2021 for small bowel obstruction secondary to IBD exacerbation. Symptoms improved with medical management. Patient experienced achy generalized abdominal pain yesterday similar to bowel obstruction attacks followed by nausea/emesis episodes. Fever, no chills, no chest pain, no SOB. Last BM was yesterday morning. Patient consulted ER for worsening symptoms. MEDICAL HISTORY: As above. 2020 colonoscopy showed rectal polyp, normal colonic mucosa, patent functional end-to-end ileocolonic mucosa SURGERIES: Bowel surgery, appendectomy. FAMILY HISTORY: Hypertension. 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 Perales) - maintained on Stelara Surgical History History of appendectomy History of bowel resection 18 inches ileocolonic resection - 1996 ([facility]) Social History Smoking Status: Current every day smoker Second Hand Exposure: No; Hx Alcohol Use: No Hx Substance Use: No Preferred Language: Emirati Communication Ability: Effective Supervisor [employer] Required: No Beliefs That Will Affect Care: None Current Living Situation: Spouse and Family Feels Safe at Home: Yes Assistive Devices: None Review of Systems Review of Systems: As per HPI, tolerable right knee pain from recent twisting injury, l all other systems reviewed and negative Physical Exam Physical Exam: GENERAL: Slightly uncomfortable, underweight, no respiratory distress SKIN: Normal color, warm HEENT: [place] palpebral conjunctivae, no ptosis, dry buccal mucosa NECK : Supple, no tenderness CHEST : CTA, no tenderness HEART : RRR, no obvious murmurs ABDOMEN: Some distention, central abdominal tenderness EXTREMITIES : No LE swelling, minimal right knee tenderness, no other conspicuous deformities noted NEUROLOGIC : Coherent, no facial asymmetry, no other gross focality Results & Data Results & Data ([facility]) Vital Signs (Past 12 Hours) Vital Signs Temp Pulse Pulse Resp BP BP Pulse Ox 06/06/22 23:37 64 20 130/77 100 06/06/22 22:14 36.7 C 84 18 133/95 97 O2 Del Method 06/06/22 23:37 Room Air 06/06/22 22:14 Room Air Laboratory Results Laboratory Results WBC 17.83 K/ul (4.8-10.8) H 06/06/22 22:20 RBC 5.11 M/uL (4.63-6.08) 06/06/22 22:20 Hgb 15.1 g/dl (14.0-18.0) 06/06/22 22:20 Hct 45.4 % (40.1-51.0) 06/06/22 22:20 MCV 88.8 fL (80.0-100.0) 06/06/22 22:20 MCH 29.5 pg (25.0-34.0) 06/06/22 22:20 MCHC 33.3 g/dL (32.0-36.0) 06/06/22 22:20 RDW Std Deviation 44.3 fL (36.4-46.3) 06/06/22 22:20 RDW Coeff of Nacho 13.7 % (11.5-14.5) 06/06/22 22:20 Plt Count 572 K/uL (130-400) H 06/06/22 22:20 MPV 9.2 fL (9.4-12.4) L 06/06/22 22:20 Immature Gran % (Auto) 0.3 % 06/06/22 22:20 Neut % (Auto) 81.2 % 06/06/22 22:20 Lymph % (Auto) 11.8 % 06/06/22 22:20 Kendall % (Auto) 6.3 % 06/06/22 22:20 Eos % (Auto) 0.2 % 06/06/22 22:20 Baso % (Auto) 0.2 % 06/06/22 22:20 Neut # (Auto) 14.49 K/uL (1.4-6.5) H 06/06/22 22:20 Lymph # (Auto) 2.10 K/uL (1.2-3.4) 06/06/22 22:20 Kendall # (Auto) 1.12 K/uL (0.24-0.82) H 06/06/22 22:20 Eos # (Auto) 0.03 K/uL (0-0.50) 06/06/22 22:20 Baso # (Auto) 0.04 K/uL (0-0.2) 06/06/22 22:20 Immature Gran # (Auto) 0.05 K/uL (0.00-0.02) H 06/06/22 22:20 Sodium 143 mmol/L (136-145) 06/06/22 22:20 Potassium 3.8 mmol/L (3.5-5.1) 06/06/22 22:20 Chloride 103 mmol/L (98-107) 06/06/22 22:20 Carbon Dioxide 29 mmol/L (21-32) 06/06/22 22:20 Anion Gap 11 (3-11) 06/06/22 22:20 BUN 15 mg/dl (6-23) 06/06/22 22:20 Creatinine 0.98 mg/dl (0.6-1.4) 06/06/22 22:20 Est Cr Clr Drug Dosing 69.4 ml/min 06/06/22 22:20 Est GFR ( Amer) 108.2 ml/min 06/06/22 22:20 Est GFR (Non-Af Amer) 93.4 ml/min 06/06/22 22:20 BUN/Creatinine Ratio 15.3 (10-20) 06/06/22 22:20 Glucose 132 mg/dl (70-99(Fasting)) H 06/06/22 22:20 Lactate 1.6 mmol/L (0.4-2.0) 06/06/22 21:26 Calcium 9.8 mg/dl (8.5-10.1) 06/06/22 22:20 Total Bilirubin 0.9 mg/dl (0.2-1.0) 06/06/22 22:20 AST 13 U/L (13-39) 06/06/22 22:20 ALT 15 U/L (7-52) 06/06/22 22:20 Alkaline Phosphatase 79 U/L (34-104) 06/06/22 22:20 Total Protein 7.3 gm/dl (6.0-8.3) 06/06/22 22:20 Albumin 4.6 gm/dl (3.4-5.0) 06/06/22 22:20 Globulin 2.7 gm/dl (2.5-4.0) 06/06/22 22:20 Albumin/Globulin Ratio 1.7 (0.9-2) 06/06/22 22:20 Lipase 16 U/L (11-82) 06/06/22 22:20 Procalcitonin < 0.05 ng/ml (0-0.5) 06/06/22 23:45 Urine Color Dark Yellow 06/07/22 00:34 Urine Appearance Clear (Clear) 06/07/22 00:34 Urine pH 6.5 (4.5-7.5) 06/07/22 00:34 Ur Specific [place] 1.042 (1.000-1.030) H 06/07/22 00:34 Urine Protein Trace (Negative) H 06/07/22 00:34 Urine Glucose (UA) Negative (Negative) 06/07/22 00:34 Urine Ketones 1+ (Negative) H 06/07/22 00:34 Urine Blood Negative (Negative) 06/07/22 00:34 Urine Nitrite Negative (Negative) 06/07/22 00:34 Urine Bilirubin 1+ (Negative) H 06/07/22 00:34 Urine Urobilinogen Negative (Negative) 06/07/22 00:34 Ur Leukocyte Esterase Negative (Negative) 06/07/22 00:34 Urine WBC (Auto) 1-5 /hpf (0-5) 06/07/22 00:34 Urine RBC (Auto) 0-4 /hpf (0-4) 06/07/22 00:34 U Hyaline Cast (Auto) 0 /lpf (0-5) 06/07/22 00:34 U Epithel Cells (Auto) 20-30 /lpf (0-5) H 06/07/22 00:34 Urine Bacteria (Auto) Negative (Negative) 06/07/22 00:34 Urine Crystals Not Reportable 06/07/22 00:34 Calcium Oxalate Crystal Present (None Prsent) A 06/07/22 00:34 Urine Mucus Present (None Prsent) A 06/07/22 00:[address] abdomen pelvis initial read: There are multiple dilated loops of small bowel throughout the mid to upper abdomen with gas fluid levelswithin themconsistent with intermediate grade bowel obstruction. There is narrowing of the mid small bowel consistent with wall thickening likelyinflammation fromCrohn's disease, similar to previous. No bowel perforation or abscess is identified. The liver, gallbladder, pancreas, spleen, adrenal glands, and kidneys appear within normal limits. The aorta is nondilated. The urinarybladder is partiallydistended and unremarkable. Mild degenerative changes in the lower lumbar spine. No fracture or subluxation.
[2022-06-07] MEDS ORDERED: ONDANSETRON INJ 2 MG/ML 2 ML VIAL ONE (03:56)
[2022-06-07] MEDS ORDERED: LACTATED RINGER'S 1,000 ML IV STA (03:57)
[2022-06-07 04:31] LABS: Magnesium 2.3 mg/dl (1.7-2.4)
[2022-06-07] MEDS ORDERED: METOPROLOL TARTRATE 1 MG/ML VIAL IV STA (05:57)
[2022-06-07] MEDS ORDERED: KETOROLAC TROMETHAMINE 15 MG/ML VIAL IV PRN (06:37)
[2022-06-07] MEDS ORDERED: PROMETHAZINE HCL 6.25 MG in SODIUM CHLORIDE 0.9% 50 ML IV PRN (06:37)
[2022-06-07] MEDS ORDERED: ACETAMINOPHEN 325 MG TAB PO PRN ×2 (06:37)
--- NOTE | 2022-06-07 06:55 | CT Scan Report ---
CT OF THE ABDOMEN AND PELVIS WITH CONTRAST CLINICAL HISTORY: Abdominal pain, nausea and vomiting. Hx Crohn's COMPARISON STUDY: CT of the abdomen and pelvis October 17, 2021. KUB October 18, 2021. TECHNIQUE: Following IV administration of 93 mL of Optiray, axial images of the abdomen and pelvis we re obtained from the lung bases to the proximal femurs. Images were reviewed in the axial, sagittal, and coronal planes. IV contrast was administered without complication. Automated exposure control wa s utilized for the study. A dose lowering technique was utilized adhering to the principles of ALARA . CT DOSE: 302.53 mGy.cm FINDINGS: Lung bases are unremarkable. There is circumferential wall thickening of the distal esophag us. No pneumatosis, free air or portal venous gas is present. Small hyperdense foci within the gallbl adder fundus are again noted. These may reflect gallstones. No pericholecystic infiltration. Liver, s pleen, adrenal glands, kidneys and pancreas are unremarkable. Is no hydronephrosis. There is no bilia ry or pancreatic ductal dilatation. Major vasculature is patent. Small amount of ascites within the p sameer is noted. Ileocecectomy is noted. Multiple loops of moderately dilated fluid-filled mid small b owel are noted. Transition point is within the mid small bowel due to circumferential wall thickening with mucosal hyperemia which extends for approximately 15 cm. Small amount of interloop ascites is p resent. Similar pattern was shown on CT of October 17, 2021. There is no abscess. No fistulas are lina ntified. Sigmoid diverticulosis is noted without evidence for acute diverticulitis. No perianal/perir ectal abscess or fistulas is identified. No acute fracture or suspicious lesion within the visualized skeletal structures. IMPRESSION: Findings consistent with a small bowel obstruction with transition point within the mid small bowel d ue to circumferential wall thickening and mucosal hyperemia which extends for approximately 15 cm con sistent with active inflammatory bowel disease. Associated mesenteric stranding and small amount of a scites. No abscess. No free air. ACT 112: Negative or not required by law. Electronically signed by: Dk Guardado M.D. 06/07/2022 6:52 AM
[2022-06-07 07:24] LABS: Estimated Average Glucose 108 mg/dl; Hemoglobin A1C 5.4 % (4.5-5.6)
--- NOTE | 2022-06-07 07:59 | Surgery Consultation ---
Date of Consultation June 07, 2022 Assessment & Plan (1) Exacerbation of Crohn's disease: Symptoms improving. No acute abdominal findings. Increase IVF while NPO. Await GI input. Supervising Physician Co-Signing Physician Notes pnt S&E, labs and imaging reviewed, agree with above. 46 y/o male with h/o crohns, sudden onset abd pain yesterday. On exam afvss, nad, aaox3. abd soft, mildly ttp, no guarding. wbc 11. CT with crohn's flare with partial sbo. recommend GI consult, likely needs steroids. no surgical intervention at this time. surgery will follow. History of Present Illness Attending Physician: Isabela Cassidy MD History of Present Illness 46 y/o male with Crohn's had rather sudden onset pain, N/V last night and admitted overnight. Feels better this morning with medication. Had BM this morning. Last admission was in October and improved with steroids. Continues his scheduled Stelara. Allergies Allergy/AdvReac Type Severity Reaction Status Date / Time No Known Allergies Allergy Verified 06/06/22 23:00 Home Medications Medication Instructions Recorded Confirmed Type ustekinumab 90 mg/mL subcutaneous 90 mg subcut Q8WK 10/17/21 06/06/22 History syringe (Stelara) acetaminophen 500 mg tablet 1,000 mg PO Q6H PRN Pain 06/06/22 06/06/22 History (Tylenol Extra Strength) multivitamin 1 tab PO DAILY 06/06/22 06/06/22 History Patient History Medical History Crohns disease Follows with [facility] (Dr. 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 Beliefs That Will Affect Care: None Current Living Situation: Spouse Feels Safe at Home: Yes Safety Concerns: Feels Safe At This Time Assistive Devices: None Review of Systems Constitutional: no fever and no chills Gastrointestinal: + abdominal pain, + bloating, + nausea and + vomiting Physical Exam Constitutional: WD/WN, vitals as above ENMT: does not have NG Cardiovascular: Rate/Rhythm: + tachycardic Gastrointestinal (Abdomen): Inspection/Auscultation: + abdomen distended Percussion/Palpation: + abdomen tender and abdomen soft; no guarding Results & Data ([facility]) Vital Signs (Past 12 Hours) Vital Signs Temp Pulse Pulse Pulse Resp BP BP 06/07/22 06:30 36.8 C 114 H 18 149/102 H 06/07/22 05:46 120 H 20 148/95 H 06/07/22 03:59 93 H 20 138/97 06/06/22 23:37 64 20 130/77 06/06/22 22:14 36.7 C 84 18 133/95 Pulse Ox O2 Del Method 06/07/22 06:30 97 Room Air 06/07/22 05:46 95 Room Air 06/07/22 03:59 98 Room Air 06/06/22 23:37 100 Room Air 06/06/22 22:14 97 Room Air PG Care Time/CCT Total # of Minutes Spent Total Time Spent with Patient: Total time spent is greater than 50% in coordination of care (as documented) at patient's floor/unit and/or counseling patient: Coding Level of Care Code 04860 Inpt Consult Level 3 Diagnoses Exacerbation of Crohn's disease K50.90
[2022-06-07 08:23] LABS: Basophils # (auto) 0.02 K/uL (0-0.2); Basophils % (auto) 0.2 %; Eosinophils # (auto) 0.04 K/uL (0-0.50); Eosinophils % (auto) 0.4 %; Hematocrit (blood only) 44.2 % (40.1-51.0); Hemoglobin 14.4 g/dl (14.0-18.0); Immature Granulocytes # (auto) 0.02 K/uL (0.00-0.02); Immature Granulocytes % (auto) 0.2 %; Lymphocytes # (auto) 0.22 K/uL (1.2-3.4); Mean Corpuscular Hemoglobin 29.3 pg (25.0-34.0); Mean Corpuscular Hgb Conc 32.6 g/dL (32.0-36.0); Mean Corpuscular Volume 89.8 fL (80.0-100.0); Mean Platelet Volume 9.6 fL (9.4-12.4); Monocytes # (auto) 0.79 K/uL (0.24-0.82); Monocytes % (auto) 7.2 %; Neutrophils # (auto) 9.95 K/uL (1.4-6.5); Platelet Count 499 K/uL (130-400); RDW Coefficient of Variation 14.1 % (11.5-14.5); RDW Standard Deviation 46.2 fL (36.4-46.3); Red Blood Count 4.92 M/uL (4.63-6.08); White Blood Count 11.04 K/ul (4.8-10.8)
[2022-06-07 08:47] LABS: BUN Creatinine Ratio 20.3 (10-20); Calcium 8.4 mg/dl (8.5-10.1); Creatinine Clr Calc Pharmacy 139.8 ml/min; Est GFR (Non-African American) 112.2 ml/min
[2022-06-07] MEDS: HEPARIN SOD 5,000 UNIT/0.5 ML VIAL SQ SCH ×3 (09:13→22:38)
[2022-06-07] MEDS: MULTIVITAMIN TAB PO SCH (09:14)
--- NOTE | 2022-06-07 10:41 | Gastrointestinal Consultation ---
Date of Consultation June 07, 2022 Assessment & Plan (1) Partial small bowel obstruction: (2) Crohn's disease: Plan Patient is a 46 years old male with history of fistulizing Crohn's, ileocolonic resection, previously well maintained on Stelara injections every 8 weeks. He presented yesterday with symptoms of abdominal bloating, pain, nausea and vomiting. Last BM yesterday morning. CT abdomen pelvis revealed small bowel obstruction with transition point in the mid small bowel area, mucosal hyperemia and thickening noted reflecting active IBD. - Check ESR/CRP - NPO - IVF support - Cipro 400mg IV q12h + Flagyl 500mg IV q8hr - Methylprednisolone 20mg q8hr - NGT if n/v, increased bloating - Surgery following - Will continue to following along Supervising Physician Co-Signing Physician Notes Attg add: I interviewed and examined pt, reviewed chart and labs. Pt with Crohn's disease, admit with obstruction symptoms. CT showed mid small bowel narrowing with 15 cm of small intestine edema, fecalization. Steroids, abx, liquids. Anticipate discharge tomorrow. COnsider stelara q 4 as outpt, eventual surg consult History of Present Illness Reason for Consultation: IBD flare Requesting Physician: Dr. Isabela Cassidy Attending Physician: Dr. Rosie Harris History of Present Illness Patient is a 46 years old male with history of fistulizing Crohn's disease in the TI and rectum area, status post ileocolonic resection in 1996 who presented to the ED yesterday with complaints of abdominal bloating, nausea and vomiting, pain since 4 PM. He had his last bowel movement was yesterday morning. Is passing flatus but no BMs yet since admitted or today. Patient has been on Stelara injections every 8 weeks. Last dose 6 weeks ago. He denies missing any medication doses. Reports that his last IBD flare was a long time ago, he cannot remember exact date. Also cannot remember exactly when he had steroids last. CT abd/pelvis w contrast consistent with a small bowel obstruction with transition point within the mid small bowel due to circumferential wall thickening and mucosal hyperemia which extends for approximately 15 cm consistent with active inflammatory bowel disease. Associated mesenteric stranding and small amount of ascites. No abscess. No free air. Last colonoscopy March 2021, normal exam no evidence of active disease Allergies Allergy/AdvReac Type Severity Reaction Status Date / Time No Known Allergies Allergy Verified 06/06/22 23:00 Home Medications Medication Instructions Recorded Confirmed Type ustekinumab 90 mg/mL subcutaneous 90 mg subcut Q8WK 10/17/21 06/06/22 History syringe (Stelara) acetaminophen 500 mg tablet 1,000 mg PO Q6H PRN Pain 06/06/22 06/06/22 History (Tylenol Extra Strength) multivitamin 1 tab PO DAILY 06/06/22 06/06/22 History Patient History Medical History Crohns disease Follows with [facility] (Dr. 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 Beliefs That Will Affect Care: None Current Living Situation: Spouse Feels Safe at Home: Yes Safety Concerns: Feels Safe At This Time Assistive Devices: None Review of Systems Review of Systems: All systems reviewed & are unremarkable except as noted in HPI & below Physical Exam Constitutional: WD/WN, vitals as above well groomed, cooperative and comfortable Eyes: PERRL, conjunctivae normal, anicteric sclerae ENMT: external ear and nose normal, oropharynx normal Respiratory: normal respiratory effort, lungs clear to auscultation Cardiovascular: RRR, no murmur, no edema Gastrointestinal (Abdomen): Mild distension, hypoactive BS on mid abd area, mild TTP (generalized) Skin: no rashes, warm and dry no jaundice Psychiatric: A+Ox3, euthymic affect Lymphatic: no lymphedema Results & Data ([facility]) Vital Signs (Past 12 Hours) Vital Signs Temp Pulse Pulse Resp BP Pulse Ox O2 Del Method 06/07/22 09:53 Room Air 06/07/22 07:55 36.8 C 130 H 16 129/87 96 Room Air 06/07/22 06:30 36.8 C 114 H 18 149/102 H 97 Room Air 06/07/22 05:46 120 H 20 148/95 H 95 Room Air 06/07/22 03:59 93 H 20 138/97 98 Room Air 06/06/22 23:37 64 20 130/77 100 Room Air (1) Crohn's disease Digestive disease complication type: unspecified complication Gastrointestinal tract location: unspecified location Qualified Code(s): K50.919 - Crohn's disease, unspecified, with unspecified complications
[2022-06-07] MEDS: metroNIDAZOLE 500 MG/100 ML BAG IV SCH ×2 (11:24→17:53)
[2022-06-07] MEDS: CIPROFLOXACIN / D5W 400 MG/200 ML BAG IV SCH ×2 (11:28→22:38)
[2022-06-07] MEDS: methylPREDNISolone 20 MG in SYRINGE 0 ML IV SCH ×2 (11:29→19:50)
[2022-06-07] MEDS: LACTATED RINGER'S 1,000 ML IV SCH ×2 (14:55→22:38)
--- NOTE | 2022-06-07 23:54 | Communication Note ---
Date of Service: June 07, 2022 Pt was seen and examined for follow up of abdominal pain associated with nausea and vomiting. He said last episode of vomiting was early this morning. He said that his abdominal pain improves. CT abd/pelvis showed findings consistent with a small bowel obstruction with transition point within the mid small bowel due to circumferential wall thickening and mucosal hyperemia which extends for approximately 15 cm consistent with active inflammatory bowel disease. Surgery on board recommended to continue conservative management. GI on board. Continue IV steroid. Pain control. Keep NPO for now. Continue monitor electrolytes and will monitor ESR and CRP. MD Khanh
[2022-06-08] MEDS: metroNIDAZOLE 500 MG/100 ML BAG IV SCH ×2 (01:55→09:57)
[2022-06-08] MEDS: methylPREDNISolone 20 MG in SYRINGE 0 ML IV SCH ×2 (04:14→12:18)
[2022-06-08] MEDS: HEPARIN SOD 5,000 UNIT/0.5 ML VIAL SQ SCH ×2 (07:16→15:48)
--- NOTE | 2022-06-08 08:20 | Surgery Progress Note ---
Date of Service June 08, 2022 Assessment & Plan (1) Crohn's disease: Plan: Patient with history of Crohn's admitted with flare causing partial SBO He is feeling much better today, denies pain, nausea/vomiting Bowel function returning He is advancing diet as tolerates No plans for surgical intervention. GI following for medication mnmgt and output follow up We will sign off, please call with questions/concerns (2) Partial small bowel obstruction: Admission and Anticipated Discharge Date Admission Date: June 07, 2022 Subjective Patient reports feeling improvement in symptoms. Denies pain, n/v. Says he is passing flatus and had a couple small BMs. Tolerating clears Physical Exam Physical Exam: awake/alert, no distress Gastrointestinal (Abdomen): Inspection/Auscultation: abdomen not distended Percussion/Palpation: abdomen soft; abdomen nontender Results & Data ([facility]) Vital Signs (Past 12 Hours) Vital Signs Temp Pulse Resp BP Pulse Ox O2 Del Method 06/08/22 07:54 36.7 C 60 16 107/68 96 Room Air 06/07/22 22:48 36.6 C 72 16 118/73 95 Room Air PG Care Time/CCT Total # of Minutes Spent Total Time Spent with Patient: Total time spent is greater than 50% in coordination of care (as documented) at patient's floor/unit and/or counseling patient: Coding Level of Care Code 94802 Subseq Hosp Care Lvl 1 Diagnoses Crohn's disease K50.90 Partial small bowel obstruction K56.600
[2022-06-08 08:59] LABS: BUN Creatinine Ratio 15.5 (10-20); Calcium 8.6 mg/dl (8.5-10.1); Creatinine Clr Calc Pharmacy 145.7 ml/min; Est GFR (African American) 132.3 ml/min; Est GFR (Non-African American) 114.1 ml/min; Magnesium 2.3 mg/dl (1.7-2.4)
[2022-06-08] MEDS: MULTIVITAMIN TAB PO SCH (09:57)
[2022-06-08] MEDS: CIPROFLOXACIN / D5W 400 MG/200 ML BAG IV SCH (09:57)
--- NOTE | 2022-06-08 10:10 | Gastroenterology Progress Note ---
Date of Service June 08, 2022 Assessment & Plan (1) Partial small bowel obstruction: (2) Crohn's disease: Plan Patient is a 46 years old male with history of fistulizing Crohn's, ileocolonic resection, previously well maintained on Stelara injections every 8 weeks. He presented yesterday with symptoms of abdominal bloating, pain, nausea and vomiting. Last BM yesterday morning. CT abdomen pelvis revealed small bowel obstruction with transition point in the mid small bowel area, mucosal hyperemia and thickening noted reflecting active IBD. Doing well, passing flatus & BM. Exam revealed soft abd, + BS, non tender. - KUB today - OK for DC from GI standpoint with Prednisone taper: 40mg daily x 1 week, 30mg daily x 1 week, 20mg daily x 1 week, 15mg daily x 1 week, 10mg daily x 1 week, 5mg daily x 1 week. - Completed Cipro 400mg BID and Flagyl 500mg q8hr x 7 days total - Will communicate with his regular GI provider (ZEESHAN Donald) regarding Colorectal Surgery OP referral and consider increasing Stelara frequency to every 4 weeks if insurance will cover this. Admission and Anticipated Discharge Date Admission Date: June 07, 2022 Supervising Physician Co-Signing Physician Notes Attg add: I interviewed and examined pt, reviewed chart and labs. Pt without any complaints today. OK for discharge on meds above. Subjective Pt had 3 BMs this AM. Denies feeling bloated, no n/v, abd pain/cramping. Wants to go home today Review of Systems Review of Systems: All systems reviewed & are unremarkable except as noted in HPI & below Physical Exam Constitutional: WD/WN, vitals as above well groomed, cooperative and comfortable Eyes: PERRL, conjunctivae normal, anicteric sclerae ENMT: external ear and nose normal, oropharynx normal Respiratory: normal respiratory effort, lungs clear to auscultation Cardiovascular: RRR, no murmur, no edema Gastrointestinal (Abdomen): normal bowel sounds, soft, nontender, no hepatosplenomegaly Skin: no rashes, warm and dry no jaundice Psychiatric: A+Ox3, euthymic affect Lymphatic: no lymphedema Results & Data ([facility]) Vital Signs (Past 12 Hours) Vital Signs Temp Pulse Resp BP Pulse Ox O2 Del Method 06/08/22 07:54 36.7 C 60 16 107/68 96 Room Air 06/07/22 22:48 36.6 C 72 16 118/73 95 Room Air
--- NOTE | 2022-06-08 12:20 | XRay Report ---
KUB HISTORY: Small bowel obstruction. Follow-up. COMPARISON: Abdomen and pelvis CT 10/18/2021 FINDINGS: Dilated gas-filled loops of small bowel are again noted within the left side the abdomen me asuring up to 5.2 cm in diameter. This is consistent with the patient's small bowel obstruction. Smal l of gas and stool noted within the colon. Suture material within the right side the abdomen. No diana al calculi. No ureteral calculi. No pneumoperitoneum or pneumatosis. IMPRESSION: Redemonstration of the small bowel structure pattern. ACT 112: Negative or not required by law. Electronically signed by: Rajesh Kamara M.D. 06/08/2022 12:18 PM
--- NOTE | 2022-06-08 15:14 | Discharge Summary ---
Date of Service June 08, 2022 Admission HPI Per Admitting Provider History obtained from patient and records. Medical history is significant for Crohn disease status post surgery, past tobacco abuse. Patient diagnosed with Crohn disease since he was 19 years old. Underwent a colonic resection at [facility] in 1996. Last confinement October 2021 for small bowel obstruction secondary to IBD exacerbation. Symptoms improved with medical management. Patient experienced achy generalized abdominal pain yesterday similar to bowel obstruction attacks followed by nausea/emesis episodes. Fever, no chills, no chest pain, no SOB. Last BM was yesterday morning. Patient consulted ER for worsening symptoms. MEDICAL HISTORY: As above. 2020 colonoscopy showed rectal polyp, normal colonic mucosa, patent functional end-to-end ileocolonic mucosa SURGERIES: Bowel surgery, appendectomy. FAMILY HISTORY: Hypertension. 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 Admission Exam Per Admitting Provider GENERAL: Slightly uncomfortable, underweight, no respiratory distress SKIN: Normal color, warm HEENT: Jol[place] palpebral conjunctivae, no ptosis, dry buccal mucosa NECK : Supple, no tenderness CHEST : CTA, no tenderness HEART : RRR, no obvious murmurs ABDOMEN: Some distention, central abdominal tenderness EXTREMITIES : No LE swelling, minimal right knee tenderness, no other conspicuous deformities noted NEUROLOGIC : Coherent, no facial asymmetry, no other gross focality Principal Diagnosis Partial small bowel obstruction: Crohn's disease: Discharge Exam General- No acute distress Head- atraumatic Eyes- PERRL, EOMI, ENT- oropharynx clear Neck- supple, no JVD Lungs- clear to auscultation Heart- regular rhythm; no murmur Abdomen- normal bowel sounds, soft, nontender Extremities- no calf tenderness Neuro- alert, oriented x 3; PERRL, EOMI; no facial palsy; no dysarthria Skin- warm & dry Discharge Data Allergies Allergy/AdvReac Type Severity Reaction Status Date / Time No Known Allergies Allergy Verified 06/06/22 23:00 Consultations 06/07/22 04:17 ED Decision to Admit Stat 06/07/22 06:37 Consult Gastroenterology Routine Consult General Surgery Routine Ordered Studies 06/06/22 23:11 CT abd pelvis IV con only Urgent KUB HISTORY: Small bowel obstruction. Follow-up. COMPARISON: Abdomen and pelvis CT 10/18/2021 FINDINGS: Dilated gas-filled loops of small bowel are again noted within the left side the abdomen measuring up to 5.2 cm in diameter. This is consistent with the patient's small bowel obstruction. Small of gas and stool noted within the colon. Suture material within the right side the abdomen. No renal calculi. No ureteral calculi. No pneumoperitoneum or pneumatosis. IMPRESSION: Redemonstration of the small bowel structure pattern. ACT 112: Negative or not required by law. Electronically signed by: Rajesh Kamara M.D. 06/08/2022 12:18 PM Dictated:06/08/22 1208 Transcribed: 06/08/[address] OF THE ABDOMEN AND PELVIS WITH CONTRAST CLINICAL HISTORY: Abdominal pain, nausea and vomiting. Hx Crohn's COMPARISON STUDY: CT of the abdomen and pelvis October 17, 2021. KUB October 18, 2021. TECHNIQUE: Following IV administration of 93 mL of Optiray, axial images of the abdomen and pelvis were obtained from the lung bases to the proximal femurs. Images were reviewed in the axial, sagittal, and coronal planes. IV contrast was administered without complication. Automated exposure control was utilized for the study. A dose lowering technique was utilized adhering to the principles of ALARA. CT DOSE: 302.53 mGy.cm FINDINGS: Lung bases are unremarkable. There is circumferential wall thickening of the distal esophagus. No pneumatosis, free air or portal venous gas is present. Small hyperdense foci within the gallbladder fundus are again noted. These may reflect gallstones. No pericholecystic infiltration. Liver, spleen, adrenal glands, kidneys and pancreas are unremarkable. Is no hydronephrosis. There is no biliary or pancreatic ductal dilatation. Major vasculature is patent. Small amount of ascites within the pelvis is noted. Ileocecectomy is noted. Multiple loops of moderately dilated fluid-filled mid small bowel are noted. Transition point is within the mid small bowel due to circumferential wall thickening with mucosal hyperemia which extends for approximately 15 cm. Small amount of interloop ascites is present. Similar pattern was shown on CT of October 17, 2021. There is no abscess. No fistulas are identified. Sigmoid diverticulosis is noted without evidence for acute diverticulitis. No perianal/perirectal abscess or fistulas is identified. No acute fracture or suspicious lesion within the visualized skeletal structures. IMPRESSION: Findings consistent with a small bowel obstruction with transition point within the mid small bowel due to circumferential wall thickening and mucosal hyperemia which extends for approximately 15 cm consistent with active inflammatory bowel disease. Associated mesenteric stranding and small amount of ascites. No abscess. No free air. ACT 112: Negative or not required by law. Electronically signed by: Dk Guardado M.D. 06/07/2022 6:52 AM Dictated:06/07/22644 Transcribed: 06/07/22644 Hospital Course (1) Partial small bowel obstruction: Hx Crohn disease Present on admission with generalized abdominal pain associated with nausea/emesis episodes. CT abd/pelvis showed Findings consistent with a small bowel obstruction with transition point within the mid small bowel due to circumferential wall thickening and mucosal hyperemia which extends for approximately 15 cm consistent with active inflammatory bowel disease. Gastro on board recommended to continue Cipro 400mg BID and Flagyl 500mg q8hr to complete 7 days total Surgery on board - No plans for surgical intervention. Currently on IV solumedrol 20mg IV Will transition to oral prednisone 40mg daily x 1 week, 30mg daily x 1 week, 20mg daily x 1 week, 15mg daily x 1 week, 10mg daily x 1 week, 5mg daily x 1 week. Will need outpatient follow up with GI (ZEESHAN Donald) regarding Colorectal Surgery OP referral and consider increasing Stelara frequency to every 4 weeks if insurance will cover this. Continue Low fiber diet on discharge Clinically improves significantly Ok from GI standpoint to discharge home today Hyperglycemia Most recent hba1c 5.6 Glucose stable DVT prophylaxis on Heparin subcu Full code Total Time Total Time Spent Total Time Spent (In Minutes): 35 minutes Discharge Plan Discharge Items Patient Disposition: Home - Self-Care Reason For Visit: SBO, IBD FLARE UP Discharge Diagnosis: Partial small bowel obstruction: Crohn's disease Activity: Resume your previous activity Non-emergency contact: Primary Care Provider and Diabetes Specialist Call non-emergency contact if: you have any medication questions and your symptoms worsen Follow-up/Referrals: Marlon Cadet CRNP [Nurse Practitioner] - (Date & Time 06/13/2022 2:00 PM Provider ZEESHAN Sofia Department Gastroenterology, [facility] ) Hernesto Thapa DO [Primary Care Provider] - (Date & Time 06/12/2022 2:00 PM Provider Hernesto Thapa DO Department Family Practice [facility] ) Diet: Low Fiber Addtl Attending Provider Instructions: Follow up with your primary care provider within 1 week Follow up with gastrointestinal provider Marlon BYERS You will need a referral for colorectal surgery as an outpatient Continue Prednisone taper: 40mg daily x 1 week, 30mg daily x 1 week, 20mg daily x 1 week, 15mg daily x 1 week, 10mg daily x 1 week, 5mg daily x 1 week. Complete the course of Cipro 500mg BID and Flagyl 500mg q8hr Seek medical attention if your symptoms worsening Pending Studies at Discharge: No Stand-Alone Forms: My [facility] [place] [employer], Smoking Cessation Medications and DC Order Prescriptions: New prednisone 10 mg tablet 10 mg PO UD Qty: 84 0RF Rx Instructions: 40mg daily x 1 week, 30mg daily x 1 week, 20mg daily x 1 week, 15mg daily x 1 week, 10mg daily x 1 week, 5mg daily x 1 week. ciprofloxacin HCl [Cipro] 500 mg tablet 500 mg PO BID Qty: 10 0RF metronidazole 500 mg tablet 500 mg PO TID Qty: 15 0RF Continued Stelara 90 mg/mL syringe 90 mg SUBCUT Q8WK multivitamin Tablet 1 tab PO DAILY acetaminophen [Tylenol Extra Strength] 500 mg Tablet 1,000 mg PO Q6H PRN (Reason: Pain) Discharge Orders: Discharge Order (Routine); Ordered 06/08/22 Ordered By: Isabela Clay/Other Patient Handouts: Small Bowel Obstruction Admission Data Admit Date/Time: 06/07/22 04:13 Attending Provider: Isabela Cassidy Admit Provider: Zane Pal Primary Care Provider: Hernesto Thapa Other Providers: Zane Pal ; Marlon Cadet ; Sophia Flores ; Charles Clark ; Danielle Whittaker ; Jose Enrique Quach ; Kalyn Morse ; Rosie Harris ; Silviano Melendez ; Joanne Arnold ; Mari Kelly ; Sofía Ram ; Nancie Nixon ; Kd Young ; Gerard Shaw ; Jean Guy ; Jaiden Ndiaye ; Aba Sauceda Jr ; Kavon Marvin ; Serafin Shin ; Edith Reed ; Chon Monroy ; Sacha Russell Other Interventions: Discharge Summary Assessment (RN) Last Done: 06/08/22 15:46
== END 2022-06-08 16:29 | disposition home or self-care (01) | DRG 387 ==
LOC: ED 22:13 → 3N 06-07 04:13
DX: Z90.49 Acquired absence of other specified parts of digestive tract; K50.912 Crohn's disease, unspecified, with intestinal obstruction; R73.9 Hyperglycemia, unspecified; Z87.891 Personal history of nicotine dependence; Z79.899 Other long term (current) drug therapy; Z98.0 Intestinal bypass and anastomosis status